=== PATIENT | male | born 1945 | race Caucasian/White ===

== ENCOUNTER 2018-05-24 11:05 | Inpatient (IN) | payer MEDICARE ==
[2018-05-24] MEDS ORDERED: IPRATROPIUM-ALBUTEROL 3 ML NEB INHALATION STA (11:29)
--- NOTE | 2018-05-24 11:41 | ED ---
SOB HPI - General Chief Complaint: Shortness of Breath Stated Complaint: SOB Time Seen by Provider: 05/24/18 11:15 Source: patient, family, RN notes reviewed Mode of arrival: wheelchair Limitations: physical limitation - History of Present Illness Initial Comments: Is a 73-year-old male who presents with complaints of shortness of breath exertional dyspnea been going on for about 2 weeks he worse she also had right- sided chest pain is been going for a couple weeks he does have a cough of clear phlegm he denies any fevers chills or sweats he does have the exertional dyspnea and very apparently is similar to when he had CHF in the past he's had bypass surgery in 2059. No other modifying factors at this time MD Complaint: shortness of breath, cough, chest pain - Related Data Home Medications Medication Instructions Recorded Confirmed Allopurinol [Zyloprim] 300 mg PO DAILY 11/16/15 05/24/18 Furosemide [Lasix] 40 mg PO TID 11/16/15 05/24/18 Omeprazole 20 mg PO DAILY 11/16/15 05/24/18 Potassium Chloride [Klor-Con 10] 20 meq PO DAILY 12/06/15 05/24/18 Spironolactone [Aldactone] 25 mg PO DAILY 12/06/15 05/24/18 Vitamin B Complex 1 cap PO DAILY 12/06/15 05/24/18 Doxazosin Mesylate [Cardura Xl] 4 mg PO DAILY 01/15/16 05/24/18 Hydrocodone/Acetaminophen 1 tab PO Q6H PRN 01/15/16 05/24/18 [Hydrocodone-Acetamin 10-325 mg] Rivaroxaban [Xarelto] 20 mg PO W/SUPPER 01/15/16 05/24/18 ALPRAZolam [Xanax] 0.25 mg PO TID PRN 02/14/16 05/24/18 Amiodarone [Cordarone] 100 mg PO DAILY 05/24/18 05/24/18 Cholecalciferol (Vitamin D3) 4,000 unit PO DAILY 05/24/18 05/24/18 [Vitamin D3] Metolazone [Zaroxolyn] 2.5 mg PO Q7DAYS 05/24/18 05/24/18 Previous Rx's Medication Instructions Recorded Atorvastatin [Lipitor] 40 mg PO HS #30 tab 12/14/15 hydrALAZINE HCL [Apresoline] 25 mg PO TID #90 tab 12/14/15 Allergies Allergy/AdvReac Type Severity Reaction Status Date / Time No Known Allergies Allergy Verified 05/24/18 12:52 Review of Systems ROS Statement: Those systems with pertinent positive or pertinent negative responses have been documented in the HPI. ROS Other: All systems not noted in ROS Statement are negative. Past Medical History Past Medical History: Atrial Fibrillation, Coronary Artery Disease (CAD), Cancer , Heart Failure, GERD/Reflux, Hyperlipidemia, Hypertension, Osteoarthritis (OA) , Pneumonia, Sleep Apnea/CPAP/BIPAP Additional Past Medical History / Comment(s): uses CPAP, hx. gout, hx. skin cancer, left sided thoracentesis 1.5 L off in December 2015, right carotid stenosis of 100%, left carotid stenosis of 60-70%,C-DIFF NOVEMBER 2015, LT ETE DETATCHED RETINA(HAD SX 02/07/16), DECREASED APPETITE-LOST 57# SINCE OCTOBER 2014. History of Any Multi-Drug Resistant Organisms: None Reported Past Surgical History: Coronary Bypass/CABG, Joint Replacement Additional Past Surgical History / Comment(s): both knees replaced, retinal repair left eye Past Anesthesia/Blood Transfusion Reactions: No Reported Reaction Past Psychological History: No Psychological Hx Reported Smoking Status: Former smoker Past Alcohol Use History: None Reported Past Drug Use History: None Reported - Past Family History Mother History Unknown: Yes Family Medical History: No Reported History Father History Unknown: Yes General Exam - General Exam Comments Initial Comments: This is a well-developed well-nourished awake alert oriented 3 male Limitations: physical limitation General appearance: alert, in no apparent distress Head exam: Present: atraumatic, normocephalic, normal inspection Eye exam: Present: normal appearance, PERRL, EOMI. Absent: scleral icterus, conjunctival injection, periorbital swelling ENT exam: Present: normal exam, mucous membranes moist Neck exam: Present: normal inspection. Absent: tenderness, meningismus, lymphadenopathy Respiratory exam: Present: decreased breath sounds. Absent: respiratory distress, wheezes, rales, rhonchi, stridor Cardiovascular Exam: Present: regular rate, normal rhythm, normal heart sounds. Absent: systolic murmur, diastolic murmur, rubs, gallop, clicks GI/Abdominal exam: Present: soft, normal bowel sounds. Absent: distended, tenderness, guarding, rebound, rigid Extremities exam: Present: normal inspection, full ROM, normal capillary refill , pedal edema. Absent: tenderness, joint swelling, calf tenderness Back exam: Present: normal inspection Neurological exam: Present: alert, oriented X3, CN II-XII intact Psychiatric exam: Present: normal affect, normal mood Skin exam: Present: warm, dry, intact, normal color. Absent: rash Course Vital Signs 05/24/18 05/24/18 05/24/18 11:08 11:36 11:45 Temperature 98.1 F Pulse Rate 68 62 69 Respiratory 20 Rate Blood Pressure 134/60 O2 Sat by Pulse 97 Oximetry 05/24/18 05/24/18 05/24/18 12:49 13:11 13:41 Temperature 97.5 F L Pulse Rate 58 L 66 60 Respiratory 22 Rate Blood Pressure 108/57 108/61 125/61 O2 Sat by Pulse 98 98 98 Oximetry 05/24/18 05/24/18 05/24/18 14:11 14:41 15:57 Temperature Pulse Rate 64 66 70 Respiratory 18 18 Rate Blood Pressure 120/67 106/58 105/59 O2 Sat by Pulse 99 98 98 Oximetry Medical Decision Making - Medical Decision Making I did discuss findings with patient and family members. Also Dr. Olivera the patient be admitted he does have evidence of renal insufficiency. - Lab Data Result diagrams: 05/24/18 11:35 05/24/18 11:35 Lab Results 05/24/18 05/24/18 05/24/18 Range/Units 11:35 11:35 11:35 WBC 8.1 (3.8-10.6) k/uL RBC 3.78 L (4.30-5.90) m/uL Hgb 13.0 (13.0-17.5) gm/dL Hct 38.1 L (39.0-53.0) % MCV 101.0 H (80.0-100.0) fL MCH 34.5 (25.0-35.0) pg MCHC 34.1 (31.0-37.0) g/dL RDW 15.8 H (11.5-15.5) % Plt Count 178 (150-450) k/uL Neutrophils % 75 % Lymphocytes % 15 % Monocytes % 6 % Eosinophils % 3 % Basophils % 0 % Neutrophils # 6.0 (1.3-7.7) k/uL Lymphocytes # 1.2 (1.0-4.8) k/uL Monocytes # 0.5 (0-1.0) k/uL Eosinophils # 0.2 (0-0.7) k/uL Basophils # 0.0 (0-0.2) k/uL Macrocytosis Slight PT (9.0-12.0) sec INR (<1.2) APTT (22.0-30.0) sec Sodium 140 (137-145) mmol/L Potassium 4.2 (3.5-5.1) mmol/L Chloride 108 H (98-107) mmol/L Carbon Dioxide 24 (22-30) mmol/L Anion Gap 8 mmol/L BUN 39 H (9-20) mg/dL Creatinine 2.60 H (0.66-1.25) mg/dL Est GFR (CKD-EPI)AfAm 27 (>60 ml/min/1.73 sqM) Est GFR (CKD-EPI)NonAf 23 (>60 ml/min/1.73 sqM) Glucose 111 H (74-99) mg/dL Calcium 9.0 (8.4-10.2) mg/dL Magnesium 1.7 (1.6-2.3) mg/dL Total Bilirubin 0.4 (0.2-1.3) mg/dL AST 27 (17-59) U/L ALT 28 (21-72) U/L Alkaline Phosphatase 69 (38-126) U/L Total Creatine Kinase 47 L (55-170) U/L CK-MB (CK-2) 0.5 (0.0-2.4) ng/mL CK-MB (CK-2) Rel Index 1.1 Troponin I <0.012 (0.000-0.034) ng/mL NT-Pro-B Natriuret Pep pg/mL Total Protein 5.8 L (6.3-8.2) g/dL Albumin 3.1 L (3.5-5.0) g/dL 05/24/18 05/24/18 Range/Units 11:35 11:35 WBC (3.8-10.6) k/uL RBC (4.30-5.90) m/uL Hgb (13.0-17.5) gm/dL Hct (39.0-53.0) % MCV (80.0-100.0) fL MCH (25.0-35.0) pg MCHC (31.0-37.0) g/dL RDW (11.5-15.5) % Plt Count (150-450) k/uL Neutrophils % % Lymphocytes % % Monocytes % % Eosinophils % % Basophils % % Neutrophils # (1.3-7.7) k/uL Lymphocytes # (1.0-4.8) k/uL Monocytes # (0-1.0) k/uL Eosinophils # (0-0.7) k/uL Basophils # (0-0.2) k/uL Macrocytosis PT 11.8 (9.0-12.0) sec INR 1.2 H (<1.2) APTT 29.9 (22.0-30.0) sec Sodium (137-145) mmol/L Potassium (3.5-5.1) mmol/L Chloride (98-107) mmol/L Carbon Dioxide (22-30) mmol/L Anion Gap mmol/L BUN (9-20) mg/dL Creatinine (0.66-1.25) mg/dL Est GFR (CKD-EPI)AfAm (>60 ml/min/1.73 sqM) Est GFR (CKD-EPI)NonAf (>60 ml/min/1.73 sqM) Glucose (74-99) mg/dL Calcium (8.4-10.2) mg/dL Magnesium (1.6-2.3) mg/dL Total Bilirubin (0.2-1.3) mg/dL AST (17-59) U/L ALT (21-72) U/L Alkaline Phosphatase (38-126) U/L Total Creatine Kinase (55-170) U/L CK-MB (CK-2) (0.0-2.4) ng/mL CK-MB (CK-2) Rel Index Troponin I (0.000-0.034) ng/mL NT-Pro-B Natriuret Pep 393 pg/mL Total Protein (6.3-8.2) g/dL Albumin (3.5-5.0) g/dL - Radiology Data Radiology results: report reviewed (The patient x-ray was reviewed and no definite acute findings are seen.), image reviewed Disposition Clinical Impression: Renal insufficiency, COPD (chronic obstructive pulmonary disease) Disposition: ADMITTED IP TO THIS HOSP Condition: Stable Referrals: Chris Olivera MD [Primary Care Provider] - 1-2 days
[2018-05-24 11:55] LABS: Basophils % (A) 0 %; Eosinophils # (A) 0.2 k/uL (0-0.7); Eosinophils % (A) 3 %; HCT 38.1 % (39.0-53.0); Lymphocytes # (A) 1.2 k/uL (1.0-4.8); Lymphocytes % (A) 15 %; MCH 34.5 pg (25.0-35.0); MCHC 34.1 g/dL (31.0-37.0); Macrocytosis Slight; Mean Platelet Volume 7.5; Monocytes # (A) 0.5 k/uL (0-1.0); Monocytes % (A) 6 %; Neutrophils % (A) 75 %; Platelet Count 178 k/uL (150-450); RBC 3.78 m/uL (4.30-5.90); RDW 15.8 % (11.5-15.5); WBC 8.1 k/uL (3.8-10.6)
[2018-05-24 12:17] LABS: Albumin 3.1 g/dL (3.5-5.0); Magnesium 1.7 mg/dL (1.6-2.3); Potassium 4.2 mmol/L (3.5-5.1); Total Bilirubin 0.4 mg/dL (0.2-1.3); Total Protein 5.8 g/dL (6.3-8.2)
--- NOTE | 2018-05-24 12:19 | XR ---
EXAMINATION TYPE: XR chest 2V DATE OF EXAM: 05/24/2018 COMPARISON: Prior chest x-ray 02/16/[address] 02/17/2016 HISTORY: Difficulty breathing and shortness of breath, cough TECHNIQUE: Frontal and lateral views of the chest are obtained. FINDINGS: Patient is post median sternotomy and atrial appendage clipping placement. No evident airs pace disease, pneumothorax, or pleural effusion. There are overlying cardiac leads. Heart remains enl arged. Pulmonary vascularity and elver not significantly changed. Prominent lung volume may be indicat drake of underlying COPD. There is increased AP diameter chest. The aorta is dense and aneurysmal. IMPRESSION: No acute cardiopulmonary process. Cardiomegaly, aortic aneurysm.
[2018-05-24 12:22] LABS: Creatine Kinase 47 U/L (55-170)
[2018-05-24 12:29] LABS: INR 1.2 (<1.2); Partial Thromboplastin Time 29.9 sec (22.0-30.0); Prothrombin Time 11.8 sec (9.0-12.0)
[2018-05-24 12:35] LABS: Creatine Kinase MB 0.5 ng/mL (0.0-2.4); Troponin I <0.012 ng/mL (0.000-0.034)
[2018-05-24] MEDS ORDERED: HYDROcodone/APAP 10-325MG 1 EACH TAB PO PRN (16:44)
[2018-05-24] MEDS ORDERED: ALPRAZolam 0.25 MG TAB PO PRN (16:44)
[2018-05-24] MEDS ORDERED: SODIUM CHLORIDE 0.9% 1,000 ML IV STA (17:02)
[2018-05-24] MEDS: IPRATROPIUM-ALBUTEROL 3 ML NEB INHALATION SCH (19:33)
[2018-05-24] MEDS: ATORVASTATIN 40 MG TAB PO SCH (20:45)
[2018-05-24] MEDS: FUROSEMIDE 40 MG TAB PO SCH (20:45)
[2018-05-24] MEDS: hydrALAZINE HCL 25 MG TAB PO SCH (20:45)
[2018-05-24] MEDS: RIVAROXABAN 20 MG TAB PO SCH (20:45)
--- NOTE | 2018-05-24 20:53 | P.HPIM ---
History of Present Illness H&P Date: 05/24/18 Chief Complaint: Dyspnea on exertion. This is a history of physical and a 73-year-old white male essentially admitted for worsening shortness of breath and acute renal failure on laboratory findings. He states for the last several days she's been having dyspnea on exertion. He states is very similar to his 2016 procedure for coronary bypass graft. He has an underlying history of atrial fibrillation. No overt chest pressure stated. No syncopal episodes. Some weakness as stated. However, that the dyspnea is nowhere near the strength of his postoperative shortness of breath from CABG. The patient is now seen shortly after transfer to the fifth floor. The patient has underlying history of atrial fibrillation with gout. Review of Systems Constitutional: Reports fatigue, Reports weakness, Denies weight gain Ears, nose, mouth and throat: Denies headache, Denies sore throat Cardiovascular: Reports as per HPI, Reports decreased exercise tolerance, Reports dyspnea on exertion, Reports shortness of breath Respiratory: Denies cough Gastrointestinal: Denies abdominal pain, Denies diarrhea, Denies nausea, Denies vomiting Musculoskeletal: Denies myalgias Integumentary: Denies pruritus, Denies rash Neurological: Denies numbness, Denies weakness Psychiatric: Denies anxiety, Denies depression Endocrine: Reports as per HPI Past Medical History Past Medical History: Atrial Fibrillation, Coronary Artery Disease (CAD), Cancer , Heart Failure, GERD/Reflux, Hyperlipidemia, Hypertension, Osteoarthritis (OA) , Pneumonia, Sleep Apnea/CPAP/BIPAP Additional Past Medical History / Comment(s): uses CPAP, hx. gout, hx. skin cancer, left sided thoracentesis 1.5 L off in December 2015, right carotid stenosis of 100%, left carotid stenosis of 60-70%,C-DIFF NOVEMBER 2015, LT ETE DETATCHED RETINA(HAD SX 02/07/16), DECREASED APPETITE-LOST 57# SINCE OCTOBER 2014. History of Any Multi-Drug Resistant Organisms: None Reported Past Surgical History: Coronary Bypass/CABG, Joint Replacement Additional Past Surgical History / Comment(s): both knees replaced, retinal repair left eye Past Anesthesia/Blood Transfusion Reactions: No Reported Reaction Past Psychological History: No Psychological Hx Reported Smoking Status: Former smoker Past Alcohol Use History: None Reported Past Drug Use History: None Reported - Past Family History Mother History Unknown: Yes Family Medical History: No Reported History Father History Unknown: Yes Medications and Allergies Home Medications Medication Instructions Recorded Confirmed Type Allopurinol [Zyloprim] 300 mg PO DAILY 11/16/15 05/24/18 History Furosemide [Lasix] 40 mg PO TID 11/16/15 05/24/18 History Omeprazole 20 mg PO DAILY 11/16/15 05/24/18 History Potassium Chloride [Klor-Con 10] 20 meq PO DAILY 12/06/15 05/24/18 History Spironolactone [Aldactone] 25 mg PO DAILY 12/06/15 05/24/18 History Vitamin B Complex 1 cap PO DAILY 12/06/15 05/24/18 History Atorvastatin [Lipitor] 40 mg PO HS #30 tab 12/14/15 05/24/18 Rx hydrALAZINE HCL [Apresoline] 25 mg PO TID #90 tab 12/14/15 05/24/18 Rx Doxazosin Mesylate [Cardura Xl] 4 mg PO DAILY 01/15/16 05/24/18 History Hydrocodone/Acetaminophen 1 tab PO Q6H PRN 01/15/16 05/24/18 History [Hydrocodone-Acetamin 10-325 mg] Rivaroxaban [Xarelto] 20 mg PO W/SUPPER 01/15/16 05/24/18 History ALPRAZolam [Xanax] 0.25 mg PO TID PRN 02/14/16 05/24/18 History Amiodarone [Cordarone] 100 mg PO DAILY 05/24/18 05/24/18 History Cholecalciferol (Vitamin D3) 4,000 unit PO DAILY 05/24/18 05/24/18 History [Vitamin D3] Metolazone [Zaroxolyn] 2.5 mg PO Q7DAYS 05/24/18 05/24/18 History Allergies Allergy/AdvReac Type Severity Reaction Status Date / Time No Known Allergies Allergy Verified 05/24/18 12:52 Physical Exam Vitals: Vital Signs Temp Pulse Resp BP Pulse Ox 05/24/18 19:42 76 05/24/18 19:33 75 05/24/18 15:57 70 105/59 98 05/24/18 14:41 66 18 106/58 98 05/24/18 14:11 64 18 120/67 99 05/24/18 13:41 60 125/61 98 05/24/18 13:11 66 108/61 98 05/24/18 12:49 97.5 F L 58 L 22 108/57 98 05/24/18 11:45 69 05/24/18 11:36 62 05/24/18 11:08 98.1 F 68 20 134/60 97 Intake and Output 05/24/18 05/24/18 05/24/18 06:59 14:59 22:59 Other: Weight 147.871 kg - Constitutional General appearance: no acute distress - EENT Eyes: EOMI - Neck Neck: no lymphadenopathy - Respiratory Respiratory: bilateral: diminished - Cardiovascular Rhythm: irregularly irregular Abnormal Heart Sounds: no S3 Gallop - Gastrointestinal General gastrointestinal: soft, no tenderness - Musculoskeletal Musculoskeletal: generalized weakness - Psychiatric Psychiatric: A&O x's 3, appropriate affect, intact judgment & insight Results CBC & Chem 7: 05/24/18 11:35 05/24/18 11:35 Labs: Abnormal Lab Results - Last 24 Hours (Table) 05/24/18 05/24/18 05/24/18 Range/Units 11:35 11:35 11:35 RBC 3.78 L (4.30-5.90) m/uL Hct 38.1 L (39.0-53.0) % MCV 101.0 H (80.0-100.0) fL RDW 15.8 H (11.5-15.5) % INR (<1.2) Chloride 108 H (98-107) mmol/L BUN 39 H (9-20) mg/dL Creatinine 2.60 H (0.66-1.25) mg/dL Glucose 111 H (74-99) mg/dL Total Creatine Kinase 47 L (55-170) U/L Total Protein 5.8 L (6.3-8.2) g/dL Albumin 3.1 L (3.5-5.0) g/dL 05/24/18 Range/Units 11:35 RBC (4.30-5.90) m/uL Hct (39.0-53.0) % MCV (80.0-100.0) fL RDW (11.5-15.5) % INR 1.2 H (<1.2) Chloride (98-107) mmol/L BUN (9-20) mg/dL Creatinine (0.66-1.25) mg/dL Glucose (74-99) mg/dL Total Creatine Kinase (55-170) U/L Total Protein (6.3-8.2) g/dL Albumin (3.5-5.0) g/dL Assessment and Plan (1) COPD (chronic obstructive pulmonary disease) Current Visit: Yes Status: Acute Code(s): J44.9 - CHRONIC OBSTRUCTIVE PULMONARY DISEASE, UNSPECIFIED SNOMED Code(s): 18133055 (2) Renal insufficiency Current Visit: Yes Status: Acute Code(s): N28.9 - DISORDER OF KIDNEY AND URETER, UNSPECIFIED SNOMED Code(s): 480625798 (3) Dyspnea Current Visit: No Status: Acute Code(s): R06.00 - DYSPNEA, UNSPECIFIED SNOMED Code(s): 681506303 (4) HTN (hypertension) Current Visit: No Status: Acute Code(s): I10 - ESSENTIAL (PRIMARY) HYPERTENSION SNOMED Code(s): 30241273 (5) Hyperlipemia Current Visit: No Status: Acute Code(s): E78.5 - HYPERLIPIDEMIA, UNSPECIFIED SNOMED Code(s): 30516358 (6) Atrial fibrillation Current Visit: No Status: Chronic Code(s): I48.91 - UNSPECIFIED ATRIAL FIBRILLATION SNOMED Code(s): 19789705 (7) Coronary artery disease Current Visit: No Status: Chronic Code(s): I25.10 - ATHSCL HEART DISEASE OF [place] CORONARY ARTERY W/O ANG PCTRS SNOMED Code(s): 51198943 (8) S/P CABG (coronary artery bypass graft) Current Visit: No Status: Chronic Code(s): Z95.1 - PRESENCE OF AORTOCORONARY BYPASS GRAFT SNOMED Code(s): 648376806 Plan: Chest x-ray does not show significant issue from an infiltrated perspective. We'll going consult nephrology given the acuteness of his renal insufficiency. Check CBC and CMP in a.m. Question need for pulmonology if no better as far as respiration. Continue nebulizer treatments. Clinically the patient is not overtly wheezing seems comfortable. Increase ambulation as tolerated. See orders otherwise. At this time, the patient is a full code. Time with Patient: Greater than 30
[2018-05-25] MEDS: IPRATROPIUM-ALBUTEROL 3 ML NEB INHALATION SCH ×4 (07:35→19:05)
[2018-05-25 08:34] LABS: HCT 38.3 % (39.0-53.0); HGB 12.7 gm/dL (13.0-17.5); MCHC 33.2 g/dL (31.0-37.0); MCV 102.2 fL (80.0-100.0); Macrocytosis Slight; Mean Platelet Volume 7.7; Platelet Count 175 k/uL (150-450); RBC 3.74 m/uL (4.30-5.90); RDW 15.3 % (11.5-15.5)
[2018-05-25 08:52] LABS: Albumin 3.1 g/dL (3.5-5.0); Calcium 8.9 mg/dL (8.4-10.2); Total Bilirubin 0.5 mg/dL (0.2-1.3); Total Protein 5.8 g/dL (6.3-8.2)
[2018-05-25] MEDS ORDERED: NON-FORMULARY DRUG (Vitamin B Complex [Vitamin B Complex] 1 CAP) PO SCH (09:00)
[2018-05-25] MEDS: SPIRONOLACTONE 25 MG TAB PO SCH (09:40)
[2018-05-25] MEDS: POTASSIUM CHLORIDE ER 20 MEQ TAB.ER PO SCH (09:40)
[2018-05-25] MEDS: hydrALAZINE HCL 25 MG TAB PO SCH ×3 (09:40→21:33)
[2018-05-25] MEDS: ALLOPURINOL 300 MG TAB PO SCH (09:40)
[2018-05-25] MEDS: DOXAZOSIN 2 MG TAB PO SCH ×2 (09:40→21:33)
[2018-05-25] MEDS: FUROSEMIDE 40 MG TAB PO SCH (09:40)
[2018-05-25] MEDS: CHOLECALCIFEROL 1,000 UNIT TAB PO SCH (09:41)
[2018-05-25] MEDS: AMIODARONE 100 MG TAB PO SCH (09:41)
[2018-05-25] MEDS: PANTOPRAZOLE 40 MG TABLET PO SCH (09:41)
--- NOTE | 2018-05-25 10:04 | US ---
EXAMINATION TYPE: US kidneys/renal and bladder DATE OF EXAM: 05/25/2018 COMPARISON: Previous study dated 01/16/2016. CLINICAL HISTORY: rf. Renal Failure; HT 6'1", WT 147.9K per patient; ROSENDO; CABG x 3 2016 EXAM MEASUREMENTS: US exam is technically limited due to large body habitus Right Kidney: 11.9 x 4.9 x 6.7 cm Left Kidney: 11.5 x 6.1 x 4.6 cm Right Kidney: multiple renal cysts with largest simple cyst noted inferior pole = 7.6 x 9.2 x 6.9cm; crescent shaped hypoechoic to anechoic area is noted extracapsular to renal periphery known as sonogr aphic "sweat sign" may suggest renal failure and is noted bilateral renals. Left Kidney: No hydronephrosis or masses seen Bladder: not well distended Bilateral Jets seen: not seen after 3 minute observation Normal Post Void Residual: not assessed as patient voided prior to coming for US. There is no evidence for hydronephrosis at this point in time. No nephrolithiasis is seen. The urin mj bladder is anechoic. . IMPRESSION: MULTIPLE, SIMPLE APPEARING RIGHT RENAL CYSTS.
[2018-05-25 13:05] VITALS: RESP 20
--- NOTE | 2018-05-25 15:15 | CONS ---
CONSULTATION REASON FOR CONSULT: Renal failure. HISTORY OF PRESENT ILLNESS: Patient is a 73-year-old male who was admitted to the hospital with complaints of shortness of breath. He denied any chest pains, nausea, or vomiting. The patient denied any urinary symptoms. He does have underlying coronary artery disease and history of atrial fibrillation. The patient denied use of any nonsteroidal anti- inflammatory agents prior to admission. His serum creatinine was 2.6 on admission. Previous creatinine in 2016 was 1.0. The patient is currently maintained on oral Lasix. He did receive IV fluids initially on admission. It looks like he has a history of CHF and is maintained on diuretics at home prior to admission. The DIPIKA done in February of 2016 shows moderately impaired left ventricular ejection fraction at about 45%. The patient's blood pressure was low at 98 mmHg systolic on initial admission. Chest x-ray this admission shows no major abnormalities except for cardiomegaly and aortic aneurysm. PAST MEDICAL HISTORY: CHF, coronary artery disease, hypertension, osteoarthritis, obstructive sleep apnea, history of atrial fibrillation, gastroesophageal reflux disease, peripheral vascular disease. Carotid stenosis, bilateral, with 100% on the right and 60-70 percent on the left. History of detached retina, skin cancer. PAST SURGICAL HISTORY: Coronary artery bypass surgery, bilateral knee arthroplasty, retinal repair. SOCIAL HISTORY: Patient is a former smoker. No history of drug abuse or alcohol abuse. MEDICATIONS: Medications at home prior to admission included Zyloprim, Lasix, omeprazole, potassium Aldactone, Lipitor, hydralazine, Cardura, Xarelto, Xanax, Cordarone, Zaroxolyn, vitamin D3. ALLERGIES: None. REVIEW OF SYSTEMS: As per HPI. Other systems negative. EXAMINATION: Patient is comfortable, awake, alert, oriented x3, not in any acute distress. Blood pressure is 130/78, heart rate 78 per minute. He is afebrile. Examination of the heart S1, S2. Examination of the lungs bilateral breath sounds are heard. Abdomen is soft, nontender, obese. Examination lower extremity shows no significant edema. DATASTAGE DEVELOPER exam is grossly intact. LAB: Show sodium 142, potassium 4.0, chloride 108, BUN 33, serum creatinine 1.85, hemoglobin 12.7 g/dL. Chest x-ray shows no acute abnormalities. ASSESSMENT: 1. Acute kidney injury, possibly prerenal and associated with low blood pressure. The systolic blood pressure was 98 at the time of admission. Chest x-ray is currently clear. I will hold off on the diuretics. Renal function has improved. We will repeat labs in a.m. Patient is not on any nephrotoxic agents. Hold off on IV fluids for now. 2. Gastroesophageal reflux disease. 3. Cardiomyopathy, ejection fraction 45% in 2016 on a transesophageal echocardiogram. 4. Obesity. PLAN: Check UA. Check ultrasound of the kidneys. Hold Lasix for now. Repeat labs in a.m. Avoid nephrotoxic agents. Avoid hypotension. Thank you for this consultation. We will continue to follow the patient with you during his hospitalization. MMODL / IJN: [id number] /
[2018-05-25 15:54] LABS: Appearance,Urine Clear (Clear); Bilirubin,Urine Negative (Negative); Blood,Urine Negative (Negative); Color,Urine Light Yellow; Glucose,Urine (UA) Negative (Negative); Ketones,Urine Negative (Negative); Leukocyte Esterase,Urine Negative (Negative); Nitrite,Urine Negative (Negative); Protein,Urine Negative (Negative); Specific Gravity,Urine 1.009 (1.001-1.035); Urobilinogen,Urine <2.0 mg/dL (<2.0)
[2018-05-25] MEDS: RIVAROXABAN 20 MG TAB PO SCH (16:56)
[2018-05-25] MEDS: ATORVASTATIN 40 MG TAB PO SCH (21:33)
--- NOTE | 2018-05-25 23:11 | PN ---
PROGRESS NOTE DATE OF SERVICE: 05/25/2018 I am covering for Dr. Olivera. This 73-year-old gentleman admitted with COPD exacerbation is closely monitored. No chest pain. No palpitations. No fever. The patient also had elevated creatinine at this time 2.6, improved to 1.85 today. PHYSICAL EXAM: Alert and oriented x3. Pulse is 78, blood pressure 130/70, respiration 20, temperature 98 degrees, pulse ox 94% on room air. HEENT: Conjunctivae normal. Oral mucosa moist. Neck is no jugular venous distention. No carotid bruit. No lymph node enlargement. CARDIOVASCULAR: S1, S2 muffled. RESPIRATORY: Breath sounds diminished in the bases. A few scattered rhonchi and crackles. ABDOMEN: Soft, nontender. LEGS: No edema. NERVOUS SYSTEM: No focal deficit. LABS: WBC 9, hemoglobin 12.7, creatinine 1.85, albumin is 3.1. ASSESSMENT: 1. Chronic obstructive pulmonary disease acute exacerbation with acute tracheobronchitis. 2. Acute on chronic renal failure. 3. Chronic kidney disease stage III. 4. Shortness of breath. 5. Hypertension. 6. Hyperlipidemia. 7. Atrial fibrillation. 8. History of coronary artery disease. 9. History of CABG. RECOMMENDATIONS AND DISCUSSION: I recommend to continue current management, continuing monitoring and symptomatic treatment. Creatinine is improving at this time. I recommend continue with current medications and repeat labs. Closely follow. Further recommendations to follow. Closely follow with Dr. White. Further recommendations to follow. MMODL / IJN: [id number] /
[2018-05-26] MEDS: DOXAZOSIN 2 MG TAB PO SCH (08:42)
[2018-05-26] MEDS: hydrALAZINE HCL 25 MG TAB PO SCH (08:42)
[2018-05-26] MEDS: POTASSIUM CHLORIDE ER 20 MEQ TAB.ER PO SCH (08:42)
[2018-05-26] MEDS: CHOLECALCIFEROL 1,000 UNIT TAB PO SCH (08:42)
[2018-05-26] MEDS: AMIODARONE 100 MG TAB PO SCH (08:42)
[2018-05-26] MEDS: SPIRONOLACTONE 25 MG TAB PO SCH (08:43)
[2018-05-26] MEDS: ALLOPURINOL 300 MG TAB PO SCH (08:43)
[2018-05-26] MEDS: PANTOPRAZOLE 40 MG TABLET PO SCH (08:43)
[2018-05-26] MEDS: IPRATROPIUM-ALBUTEROL 3 ML NEB INHALATION SCH ×2 (09:04→12:48)
[2018-05-26 11:45] LABS: Calcium 8.8 mg/dL (8.4-10.2); Potassium 4.3 mmol/L (3.5-5.1)
[2018-05-26 13:37] VITALS: BP 138/83; PULSE 54; TEMP 98.2
--- NOTE | 2018-05-26 17:43 | PN ---
PROGRESS NOTE The patient is seen for followup for acute kidney injury. Renal function has improved significantly. Patient will be going home today. PHYSICAL EXAMINATION: Blood pressure was 138/83, heart rate 54 per minute. Patient is afebrile. Examination of the heart: S1, S2. Examination of the lungs: Bilateral breath sounds are heard. Abdomen is soft, obese, nontender. Examination lower extremity shows no evidence of edema. LOOM STOP CHECKER exam is grossly intact. LABS: Show sodium 140, potassium 4.3, serum creatinine down to 1.6 mg/dL. ASSESSMENT: 1. Acute kidney injury, prerenal, currently significantly improved. UA is completely benign. The patient has been voiding well. He can be discharged from nephrology standpoint. Diuretics have been on hold. 2. Cardiomyopathy, ejection fraction 45% in 2016. 3. Obesity. 4. Gastroesophageal reflux disease. PLAN: Okay for discharge. Follow up as outpatient. Monitor renal function as outpatient. MMODL / IJN: [id number] /
--- NOTE | 2018-05-27 05:52 | DS ---
DISCHARGE SUMMARY FINAL DIAGNOSES: 1. Chronic obstructive pulmonary disease exacerbation. 2. Acute on chronic renal failure. 3. Chronic kidney stage 3. 4. Shortness of breath. 5. Hypertension. 6. Hyperlipidemia. 7. Atrial fibrillation. 8. History of coronary artery disease. 9. History of coronary artery bypass grafting. DISCHARGE DISPOSITION: The patient is being discharged in stable condition with guarded prognosis. HISTORY OF PRESENT ILLNESS: This 73-year-old gentleman with a past medical history of multiple medical problems was admitted with COPD exacerbation and renal failure, treated symptomatically. Patient improved significantly and Dr. White's saw the patient. Recommend outpatient follow up. On exam, vital signs are stable. Cardiovascular: S1, S2. Abdomen soft. Nervous system: No focal deficits. Abdominal ultrasound also was done which showed multiple simple appearing right renal cyst only. Lasix is on hold. Creatinine improved up to 1.62 and the patient being discharged in stable condition with guarded prognosis. DISCHARGE ADVICE AND MEDICATIONS: 1. Diet is cardiac diet. 2. Activity limited until followup. 3. Follow up with Dr. Olivera in 2-3 days. 4. Follow up with Dr. White in 1 week. 5. CBC and BMP outpatient. 6. Hold Lasix for now. MEDICATIONS: 1. Zyloprim 300 mg daily. 2. Xanax 0.5 mg t.i.d. 3. Cordarone 100 mg p.o. daily. 4. Vitamin D3 4000 daily. 5. Cardura XL 4 mg p.o. daily. 6. Hydrocodone 1 tablet every 6 hours p.r.n. 7. Zaroxolyn 2.5 mg q.7 days. 8. Omeprazole 20 mg p.o. daily. 9. Klor-Con 20 mEq p.o. daily. 10.Xarelto 20 mg supper. 11.Aldactone 25 mg p.o. daily. 12.Vitamin B complex 1 p.o. daily. 13.Lipitor 40 mg q.h.s. 14.Hydralazine 25 mg p.o. t.i.d. 15.Combivent 1 puff t.i.d. Once again, the patient is being discharged in stable condition with guarded prognosis. MMODL / IJN: [id number] /
[2018-05-29] MEDS ORDERED: METOLAZONE 2.5 MG TAB PO SCH (09:00)
== END 2018-05-26 14:18 | disposition home or self-care (01) | DRG 191 ==
LOC: EC 11:05 → 5MS5E 16:42 → 5ONC 17:40 → 5MS5E 05-25 20:57
PROVIDERS: ADMIT Family Medicine; ATTEND Family Medicine
DX: J44.0 Chronic obstructive pulmonary disease with (acute) lower respiratory infection (principal); I13.0 Hypertensive heart and chronic kidney disease with heart failure and stage 1 through stage 4 chronic kidney disease, or unspecified chronic kidney disease; I42.9 Cardiomyopathy, unspecified; N17.9 Acute kidney failure, unspecified; Z68.41 Body mass index [BMI] 40.0-44.9, adult; J44.1 Chronic obstructive pulmonary disease with (acute) exacerbation; J20.9 Acute bronchitis, unspecified; E66.9 Obesity, unspecified; E78.5 Hyperlipidemia, unspecified; G47.33 Obstructive sleep apnea (adult) (pediatric); I25.10 Atherosclerotic heart disease of native coronary artery without angina pectoris; I48.91 Unspecified atrial fibrillation; I71.9 Aortic aneurysm of unspecified site, without rupture; I73.9 Peripheral vascular disease, unspecified; K21.9 Gastro-esophageal reflux disease without esophagitis; N18.3 Chronic kidney disease, stage 3 (moderate); N28.1 Cyst of kidney, acquired; Z79.01 Long term (current) use of anticoagulants; I50.9 Heart failure, unspecified; Z85.828 Personal history of other malignant neoplasm of skin; Z87.891 Personal history of nicotine dependence; Z95.1 Presence of aortocoronary bypass graft; Z96.653 Presence of artificial knee joint, bilateral; Z79.899 Other long term (current) drug therapy
CPT/HCPCS: 36415; 71046; 76770; 80048; 80053; 81003; 82550; 82553; 83735; 83880; 84484; 85025; 85027; 85610; 85730; 93005; 94640; 99285

== ENCOUNTER → 2018-07-17 | Outpatient (CLI) | payer MEDICARE | LOC: RADMRIMAIN 08:10 | PROVIDERS: ATTEND Physical Medicine & Rehabilitation | DX: Z53.9 Procedure and treatment not carried out, unspecified reason (principal) ==

== ENCOUNTER → 2018-09-16 | Outpatient (CLI) | payer MEDICARE ==
[2018-09-16 10:39] LABS: HCT 44.3 % (39.0-53.0); HGB 13.4 gm/dL (13.0-17.5); Hypochromasia Slight; MCH 30.4 pg (25.0-35.0); MCHC 30.2 g/dL (31.0-37.0); MCV 100.8 fL (80.0-100.0); Macrocytosis Slight; Mean Platelet Volume 7.9; Platelet Count 224 k/uL (150-450); RBC 4.39 m/uL (4.30-5.90); RDW 15.1 % (11.5-15.5); WBC 7.6 k/uL (3.8-10.6)
[2018-09-16 17:34] LABS: Parathyroid Hormone Intact 141.5 pg/mL (14.0-72.0)
[2018-09-16 17:45] LABS: Iron Saturation 14.85 (15.00-50.00)
[2018-09-16 17:54] LABS: Albumin 3.9 g/dL (3.80-4.90); Albumin/Globulin Ratio 1.77 (1.20-2.10); Anion Gap 11.2 mmol/L (4.00-12.00); Carbon Dioxide 23.8 mmol/L (21.6-31.8); Globulin 2.2 g/dL (1.6-3.3); Magnesium 1.8 mg/dL (1.5-2.4); Phosphorus 2.8 mg/dL (2.4-5.1); Potassium 3.7 mmol/L (3.5-5.5); Total Bilirubin 0.6 mg/dL (0.3-1.2); Total Protein 6.1 g/dL (6.2-8.2); Uric Acid 5.4 mg/dL (3.7-8.7); Vitamin D 25 Hydroxy 26.4 ng/mL (30.0-100.0)
[2018-09-16 18:16] LABS: Hemoglobin A1C 6.2 % (4.0-6.0)
[2018-09-16 18:32] LABS: Creatinine,Urine Random 99.1 mg/dL
[2018-09-16 18:34] LABS: Total Protein,Urine Random 9.2 mg/dL (0.0-13.5)
== END | disposition home or self-care (01) ==
LOC: LABWHC1 09:25
PROVIDERS: ATTEND Nurse Practitioner Family
DX: R80.9 Proteinuria, unspecified (principal); D64.9 Anemia, unspecified; E21.3 Hyperparathyroidism, unspecified; E55.9 Vitamin D deficiency, unspecified; M10.9 Gout, unspecified; N17.9 Acute kidney failure, unspecified; R73.9 Hyperglycemia, unspecified; E66.9 Obesity, unspecified
CPT/HCPCS: 36415; 80053; 82306; 82570; 82728; 83036; 83540; 83550; 83735; 83970; 84100; 84156; 84550; 85027

== ENCOUNTER → 2019-03-21 | Outpatient (CLI) | payer MEDICARE ==
--- NOTE | 2019-03-22 11:42 | US ---
EXAMINATION TYPE: US thyroid st tissue head/neck DATE OF EXAM: 03/21/2019 COMPARISON: Chest CT February 17, 2016 CLINICAL HISTORY: E03.9 Hyperthyroidism. Hyperthyroidism GLAND SIZE: Right Lobe: 7.3 x 3.4 x 4.9 cm Overall Parenchyma: homogenous Left Lobe: 5.3 x 2.0 x 2.2 cm Overall Parenchyma: homogeneous Isthmus Thickness: 0.8 cm NODULES RIGHT: # of nodules measured on right: 1 1. 4.5 X 3.4 x 4.2 cm hypoechoic solid nodule at the mid/lower pole with well-defined margins. Thi s nodule is wider than tall and shows intranodular vascularity. Prior size: no prior LEFT: # of nodules measured on left: 0 ISTHMUS: # of nodules measured in the isthmus: 0 Bilateral neck scanned, no evidence of lymphadenopathy. IMPRESSION: Heterogeneous enlarged right thyroid with dominant solid 4.5 cm mid to lower pole right t hyroid nodule redemonstrated. Likely no significant change from 2016 CT. Consider FNA if has not been performed.
== END | disposition home or self-care (01) ==
LOC: RADUSWWP 16:46
PROVIDERS: ATTEND Family Medicine
DX: E04.1 Nontoxic single thyroid nodule (principal); E05.90 Thyrotoxicosis, unspecified without thyrotoxic crisis or storm
CPT/HCPCS: 76536

== ENCOUNTER → 2019-03-24 | Outpatient (CLI) | payer MEDICARE | END | disposition home or self-care (01) | LOC: LABWHC1 12:15 | PROVIDERS: ATTEND Internal Medicine Endocrinology, Diabetes & Metabolism | DX: E05.00 Thyrotoxicosis with diffuse goiter without thyrotoxic crisis or storm (principal) | CPT/HCPCS: 36415; 84439; 84443; 84445; 84480 ==

== ENCOUNTER → 2019-07-02 | Outpatient (CLI) | payer MEDICARE ==
[2019-07-02 18:38] LABS: T4, Free (Free Thyroxine) 0.9 ng/dL (0.80-1.80)
== END | disposition home or self-care (01) ==
LOC: LABWHC1 12:14
PROVIDERS: ATTEND Internal Medicine Endocrinology, Diabetes & Metabolism
DX: E05.00 Thyrotoxicosis with diffuse goiter without thyrotoxic crisis or storm (principal)
CPT/HCPCS: 36415; 84439; 84443; 84445; 84480

== ENCOUNTER → 2019-08-18 | Outpatient (CLI) | payer MEDICARE ==
[2019-08-18 16:52] LABS: Chol/HDL Ratio 2.8; LDL Cholesterol,Calculated 40.6 mg/dL (0.0-131.0); VLDL Calculation 38.4 mg/dL (5.00-40.00)
== END | disposition home or self-care (01) ==
LOC: LABWHC1 10:41
PROVIDERS: ATTEND Nurse Practitioner Adult Health
DX: E78.2 Mixed hyperlipidemia (principal)
CPT/HCPCS: 36415; 80061; 84450; 84460

== ENCOUNTER → 2019-08-27 | Outpatient (CLI) | payer MEDICARE ==
--- NOTE | 2019-08-27 15:05 | US ---
EXAMINATION TYPE: US thyroid st tissue head/neck DATE OF EXAM: 08/27/2019 COMPARISON: 03/21/2019 CLINICAL HISTORY: E05.00 Thyrotocicosis. Follow up thyroid. On thyroid meds. No hx bx. GLAND SIZE: Right Lobe: 5.9 x 4.8 x 3.4 cm Overall Parenchyma: heterogenous Left Lobe: 2.9 x 1.8 x 1.8 cm Overall Parenchyma: heterogeneous Isthmus Thickness: 0.4 cm NODULES RIGHT: # of nodules measured on right: 1 1. 4.4 X 4.9 x 3.5 cm hypoechoic solid nodule at the mid/lower pole with well-defined margins. Thi s nodule is wider than tall and shows intranodular vascularity. Prior size: 4.5 x 3.4 x 4.2 cm LEFT: # of nodules measured on left: 0 ISTHMUS: # of nodules measured in the isthmus: 0 Bilateral neck scanned, no evidence of lymphadenopathy. IMPRESSION: 1. Markedly prominent right thyroid nodule, stable from comparison 03/21/2019
== END | disposition home or self-care (01) ==
LOC: RADUSWWP 12:57
PROVIDERS: ATTEND Internal Medicine Endocrinology, Diabetes & Metabolism
DX: E04.1 Nontoxic single thyroid nodule (principal); E05.00 Thyrotoxicosis with diffuse goiter without thyrotoxic crisis or storm
CPT/HCPCS: 76536

== ENCOUNTER → 2020-01-26 | Outpatient (CLI) | payer MEDICARE | END | disposition home or self-care (01) | LOC: LABWHC1 08:53 | PROVIDERS: ATTEND Internal Medicine Interventional Cardiology | DX: U07.1 COVID-19 (principal) ==

== ENCOUNTER 2020-01-28 06:28 | Day surgery (SDC) | payer MEDICARE ==
[2020-01-26 14:56] VITALS: BMI 46.1
[~2020-01-28 06:28] MED LIST: LACTATED RINGERS 1,000 ML IV SCH; SODIUM CHLORIDE 0.9% 1,000 ML IV SCH
[2020-01-28 07:09] VITALS: TEMP 98.6
[2020-01-28] MEDS ORDERED: SODIUM CHLORIDE 0.9% 500 ML 500 ML IV ONE (07:11)
[2020-01-28] MEDS ORDERED: BENZOCAINE SPRAY 1 CAN TOPICAL ONE (07:24)
[2020-01-28] MEDS ORDERED: PROPOFOL 10 MG/ML 20 ML VIAL IV ONE (07:30)
[2020-01-28 07:40] LABS: Calcium 8.6 mg/dL (8.4-10.2); Potassium 4.4 mmol/L (3.5-5.1)
[2020-01-28 07:50] LABS: Basophils % (A) 1 %; Eosinophils # (A) 0.2 k/uL (0-0.7); Eosinophils % (A) 4 %; HCT 40.6 % (39.0-53.0); HGB 12.9 gm/dL (13.0-17.5); Hypochromasia Moderate; Lymphocytes # (A) 1.1 k/uL (1.0-4.8); Lymphocytes % (A) 16 %; MCH 31.8 pg (25.0-35.0); MCHC 31.7 g/dL (31.0-37.0); MCV 100.4 fL (80.0-100.0); Macrocytosis Slight; Mean Platelet Volume 8.6; Monocytes # (A) 0.5 k/uL (0-1.0); Monocytes % (A) 7 %; Neutrophils # (A) 4.5 k/uL (1.3-7.7); Neutrophils % (A) 70 %; Platelet Count 209 k/uL (150-450); RBC 4.04 m/uL (4.30-5.90); RDW 15.3 % (11.5-15.5); WBC 6.4 k/uL (3.8-10.6)
[2020-01-28] MEDS ORDERED: SODIUM CHLORIDE 0.9% 1,000 ML IV SCH (08:00)
[2020-01-28] MEDS ORDERED: POTASSIUM CHLORIDE 10 MEQ PO SCH (09:00)
[2020-01-28] MEDS ORDERED: NON FORMULARY DRUG (Omeprazole [Omeprazole] 20 MG) PO SCH (09:00)
[2020-01-28] MEDS ORDERED: LEVOTHYROXINE 125 MCG TAB PO SCH (09:00)
[2020-01-28] MEDS ORDERED: SPIRONOLACTONE 25 MG TAB PO SCH (09:00)
[2020-01-28] MEDS ORDERED: FUROSEMIDE 40 MG TAB PO SCH (09:00)
[2020-01-28] MEDS ORDERED: CHOLECALCIFEROL 5000 UNIT PO SCH (09:00)
[2020-01-28] MEDS ORDERED: METOLAZONE 2.5 MG TAB PO SCH (09:00)
[2020-01-28] MEDS ORDERED: ALLOPURINOL 300 MG TAB PO SCH (09:00)
[2020-01-28] MEDS ORDERED: DOXAZOSIN MESYLATE 4 MG PO SCH (09:00)
[2020-01-28] MEDS ORDERED: METOPROLOL TARTRATE 50 MG TAB PO SCH (09:00)
[2020-01-28] MEDS ORDERED: hydrALAZINE HCL 25 MG TAB PO SCH (09:00)
--- NOTE | 2020-01-28 09:13 | ECHOT ---
TRANSESOPHAGEAL ECHOCARDIOGRAM INDICATION: Evaluation of intracardiac thrombus. PROCEDURE: After explaining the procedure to the patient, its risks and the complications, his blood pressure, heart rate, O2 saturation was monitored. The throat was sprayed with Cetacaine. He received sedation per Anesthesia Department. The probe was introduced into the esophagus without difficulty. Images were obtained. Following that, the probe was removed. There was no immediate complication. FINDINGS: Left atrial size is dilated. The left atrial appendage was closed. The left ventricular size is normal. There is evidence of global hypokinesis, estimated ejection fraction 45%. The aortic valve and mitral valve appears to be normal. Descending thoracic aorta appears to be normal. Spontaneous contrast in the left atrium was noted. No pericardial effusion was noted. Contrast bubble study revealed no evidence of shunting across the interatrial septum. Doppler pulse wave and color Doppler obtained and revealed a moderate mitral with mild tricuspid and aortic regurgitation. There was no shunting by color Doppler study. CONCLUSION: 1. Dilated left atrium with occluded left atrial appendage with spontaneous contrast. 2. Normal left ventricular size with mild global hypokinesis. 3. Moderate mitral with mild aortic and tricuspid regurgitation. 4. No shunting across the interatrial septum. MMODL / IJN: [id number] /
--- NOTE | 2020-01-28 09:29 | CE ---
CARDIAC ELECTROPHYSIOLOGY REPORT INDICATION: Atrial fibrillation. PROCEDURE: After explaining the procedure to the patient, its risks and complication. After obtaining transesophageal echocardiogram and sedated state per Anesthesia Department, a synchronized biphasic cardioversion using 200, 250 and 360 joules were unsuccessful in restoring normal sinus rhythm. There was no immediate complication. BEN / WILLY: [id number] /
[2020-01-28 10:42] VITALS: BP 107/59; PULSE 61; RESP 16
[2020-01-28] MEDS ORDERED: RIVAROXABAN 20 MG TAB PO SCH (17:30)
[2020-01-28] MEDS ORDERED: ATORVASTATIN 40 MG TAB PO SCH (21:00)
== END 2020-01-28 09:35 | disposition home or self-care (01) ==
LOC: CATHCVL 06:28
PROVIDERS: ATTEND Internal Medicine Interventional Cardiology
DX: I08.3 Combined rheumatic disorders of mitral, aortic and tricuspid valves (principal); I48.11 Longstanding persistent atrial fibrillation; I25.5 Ischemic cardiomyopathy; I25.10 Atherosclerotic heart disease of native coronary artery without angina pectoris; E78.2 Mixed hyperlipidemia; I13.0 Hypertensive heart and chronic kidney disease with heart failure and stage 1 through stage 4 chronic kidney disease, or unspecified chronic kidney disease; I50.9 Heart failure, unspecified; N18.9 Chronic kidney disease, unspecified; E89.0 Postprocedural hypothyroidism; E66.9 Obesity, unspecified; K21.9 Gastro-esophageal reflux disease without esophagitis; M19.90 Unspecified osteoarthritis, unspecified site; M10.9 Gout, unspecified; G47.33 Obstructive sleep apnea (adult) (pediatric); Z95.1 Presence of aortocoronary bypass graft; Z87.891 Personal history of nicotine dependence; Z68.42 Body mass index [BMI] 45.0-49.9, adult; Z79.01 Long term (current) use of anticoagulants; Z79.890 Hormone replacement therapy; Z79.899 Other long term (current) drug therapy; Z96.653 Presence of artificial knee joint, bilateral; Z98.890 Other specified postprocedural states; Z99.89 Dependence on other enabling machines and devices
CPT/HCPCS: 93312; 93320; 93325; 92960; 80048; 85025; J2704

== ENCOUNTER → 2020-02-16 | Outpatient (CLI) | payer MEDICARE | END | disposition home or self-care (01) | LOC: LABWHC1 09:14 | PROVIDERS: ATTEND Internal Medicine Endocrinology, Diabetes & Metabolism | DX: E05.00 Thyrotoxicosis with diffuse goiter without thyrotoxic crisis or storm (principal) | CPT/HCPCS: 36415; 84439; 84443; 84480 ==

== ENCOUNTER 2020-03-25 10:01 | Day surgery (SDC) | payer MEDICARE ==
[2020-03-19 09:19] VITALS: BMI 46.1
[2020-03-25] MEDS ORDERED: LIDOCAINE 1% INJ 10MG/ML (20 ML MDV) ONE ×2 (10:18→13:12)
[2020-03-25 10:39] LABS: Basophils # (A) 0.1 k/uL (0-0.2); Basophils % (A) 1 %; Eosinophils # (A) 0.2 k/uL (0-0.7); Eosinophils % (A) 2 %; HCT 44.3 % (39.0-53.0); HGB 13.7 gm/dL (13.0-17.5); Hypochromasia Slight; Lymphocytes # (A) 1.2 k/uL (1.0-4.8); Lymphocytes % (A) 16 %; MCH 30.8 pg (25.0-35.0); MCHC 30.9 g/dL (31.0-37.0); MCV 99.9 fL (80.0-100.0); Macrocytosis Slight; Mean Platelet Volume 8.7; Monocytes # (A) 0.6 k/uL (0-1.0); Monocytes % (A) 8 %; Neutrophils # (A) 5.6 k/uL (1.3-7.7); Neutrophils % (A) 72 %; Platelet Count 221 k/uL (150-450); RBC 4.44 m/uL (4.30-5.90); RDW 15.8 % (11.5-15.5); WBC 7.8 k/uL (3.8-10.6)
[2020-03-25 10:50] LABS: Potassium 3.9 mmol/L (3.5-5.1)
[2020-03-25] MEDS ORDERED: SUCCINYLCHOLINE CHLORIDE VIAL 200 MG/10 ML VIAL IV ONE (13:12)
[2020-03-25] MEDS ORDERED: PROTAMINE SULFATE 10 MG/ML 5 ML VIAL IV ONE (13:12)
[2020-03-25] MEDS ORDERED: HEPARIN SODIUM,PORCINE 10,000 UNIT/ML 1 ML VIAL ONE (13:12)
[2020-03-25] MEDS ORDERED: ONDANSETRON 4 MG/2 ML VIAL ONE (13:12)
[2020-03-25] MEDS ORDERED: FUROSEMIDE 10 MG/ML 2 ML VIAL ONE (13:12)
[2020-03-25] MEDS ORDERED: MIDAZOLAM 2 MG/2 ML VIAL ONE (13:12)
[2020-03-25] MEDS ORDERED: PROPOFOL 10 MG/ML 20 ML VIAL IV ONE (13:12)
[2020-03-25] MEDS ORDERED: ePHEDrine SULFATE/0.9% NACL/PF 50 MG/5 ML SYRINGE IV ONE (13:12)
[2020-03-25] MEDS ORDERED: fentaNYL (PF) 50 MCG/ML 2 ML AMP ONE (13:12)
[2020-03-25] MEDS ORDERED: DEXAMETHASONE SOD PHOSPHATE 10 MG/ML 1 ML VIAL ONE (13:12)
[2020-03-25] MEDS ORDERED: LIDOCAINE 1% INJ 10MG/ML (20 ML MDV) SQ ONE (14:10)
[2020-03-25] MEDS ORDERED: HEPARIN SOD,PORK IN 0.45% NACL 25,000 UNIT in 0.45% NACL 1 250ML.BAG IV ONE (14:42)
[2020-03-25] MEDS ORDERED: IOPAMIDOL-370 100ML BTL INJ ONE ×2 (18:18)
[2020-03-25] MEDS ORDERED: HEPARIN SODIUM (1,000 UNIT/ML) 1,000 UNIT in SODIUM CHLORIDE 0.9% 1,000 ML IRRIGATION ONE (18:19)
[2020-03-25] MEDS ORDERED: ACETAMINOPHEN IV (For NPO) 1,000 MG in EMPTY BAG 1 BAG IVPB ONE (19:03)
[2020-03-25] MEDS ORDERED: ACETAMINOPHEN TAB 325 MG TAB PO PRN (19:03)
--- NOTE | 2020-03-25 19:24 | P.PCN ---
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 Chronic kidney disease Result No left atrial appendage mass seen on intracardiac echo Successful pulmonary vein isolation of all veins using cryo-ablation Large common left pulmonary vein Large right-sided veins Linear ablation along the anterior septum along fractionated signals Linear ablation along the left atrial roof, 5.6 cm Excellent contact force and power Complete entrance block in all 4 veins confirmed No evidence for phrenic nerve injury Dilated left atrium Esophageal deflection YES , left-sided esophagus Electrical cardioversion with a synchronized shock across the chest YES 720 J in total Procedure details Patient was brought to the EP lab in a fasting state. Written informed consent was obtained prior to the procedure. Procedure performed under general anes thesia After initial muscle relaxant use, muscle relaxants were not given thereafter in order to assess phrenic nerve during procedure. Patient prepped and draped as per protocol Full cryo-set up with standard preparation of the cryoablation tools done. Femoral Venous access obtained on the right and left groins Venous and arterial Sheaths placed. Diagnostic catheters for the high right atrium, phrenic nerve stimulation and pacing, His bundle, RV and coronary sinus placed Intracardiac echo catheter placed. Long sheath placed in the right atrium Left and right transseptal catheterization performed under intracardiac echo guidance. Intravenous heparin with aCT above 300 Later, catheter positioning and balloon positioning in the left atrium, under intracardiac echo guidance Diagnostic EP study with Coronary sinus recording Baseline measurements HV interval 41 Transseptal catheterization performed RA pressure 13/8/11 LA pressure 17/5/10 Transseptal catheterization performed with standard sheath. The cryoablation sheath was then placed with an over the wire exchange without any acute complications. All 4 pulmonary veins were isolated in the following sequence: Left superior followed by left inferior followed by right superior followed by right inferior The cryo-ablation balloon was placed at the os of each vein 1.5 mL of IV dye was injected to confirm an occluded vein Goal during cryoablation was to achieve complete occlusion of the pulmonary vein, achieve -30 degrees C at 30 seconds and achieve -40 degrees C at 60 seconds and a time to effect of less than 60-90 seconds, . If not the balloon was repositioned to obtain this result After completion of Cryoblation with durations from 180-240 seconds, entrance block was confirmed with the Attain circular catheter in a roving fashion around the antrum of the pulmonary veins Phrenic nerve pacing was performed from the SVC, right innominate vein area and diaphragm voltage was monitored. Diaphragmatic contractions were also monitored manually for strength of contraction. Parameter goals for each cryo freeze Complete occlusion of the appropriate vein -30 degrees C by 30 seconds -40 degrees C by 60 seconds Minimum between minus 40-55 degrees C Thaw time greater than 10 seconds Balloon visualized by intracardiac echo The esophagus was intubated. Esophageal Temperature monitoring with a CIRCA catheter formed. Esophageal deflection for hypothermia of the esophagus below 30 degrees C Left superior pulmonary vein, common left vein, large Complete isolation, entrance block Left inferior pulmonary vein, large common left vein Complete isolation, entrance block Right superior pulmonary vein, during phrenic nerve pacing Complete isolation, entrance block Right inferior pulmonary vein, during phrenic nerve pacing Complete isolation, entrance block At the end of the procedure the Achieve catheter was once again used to check for entrance block Phrenic nerve stimulation was performed to confirm diaphragmatic stimulation the end of the procedure Cine fluoroscopy was performed at the very end of the procedure to confirm movement of both diaphragms with inspiration and expiration Following PVI, 3-D electro-anatomic mapping was performed line complete electrical isolation of the veins was confirmed Linear ablation was performed along the anterior septum along fractionated electrograms. RF line was made from the roof down to the 6 o'clock position in the pulmonary vein, right inferior The anteroseptal left atrium within the pulmonary veins and this RF line was rendered quiescent Thereafter the roof was mapped. Fractionated electrograms are noted Roof was 5.6 cm RF line of block was made. Complete block was made Good contact force Power of 30 W Organization of patient's atrial fibrillation noted with PVI and further organization noted with linear ablations Thereafter the patient was electrically cardioverted to sinus rhythm 2 simultaneous 360 J shocks were delivered since a single shock failed At the end of the procedure the patient was extubated Heparin was reversed Venous sheaths were removed and hemostasis assured Procedures performed (PVI - CRYO Ablation) Diagnostic EP study CS pacing and recording Left and right transseptal catheterization Catheter the mapping of the tachycardia (NOT 3D mapping) Intracardiac echocardiography Pulmonary vein isolation with transseptal and comprehensive EPS, [id number] Left atrial roof line, +[id number] Linear ablation, left atrium, +[id number] Electrical cardioversion with a synchronized shock across the chest [id number]
[2020-03-25] MEDS ORDERED: SODIUM CHLORIDE 0.9% 1,000 ML IV ONE ×2 (19:33)
[2020-03-25] MEDS ORDERED: ATORVASTATIN 40 MG TAB PO SCH (21:00)
[2020-03-25] MEDS: METOPROLOL TARTRATE 25 MG TAB PO SCH (21:21)
[2020-03-25] MEDS: hydrALAZINE HCL 25 MG TAB PO SCH (21:25)
[2020-03-25] MEDS: POTASSIUM CHLORIDE ER 10 MEQ TAB.ER.PRT PO SCH (21:31)
[2020-03-26] MEDS ORDERED: LEVOTHYROXINE 100 MCG TAB PO SCH (06:30)
[2020-03-26 07:04] LABS: Calcium 8.6 mg/dL (8.4-10.2); Potassium 5.1 mmol/L (3.5-5.1)
[2020-03-26] MEDS ORDERED: PANTOPRAZOLE 40 MG TABLET PO SCH (07:30)
[2020-03-26 07:49] VITALS: BP 135/84; PULSE 71; RESP 16; TEMP 98.2
[2020-03-26] MEDS: POTASSIUM CHLORIDE ER 10 MEQ TAB.ER.PRT PO SCH (08:32)
[2020-03-26] MEDS: METOPROLOL TARTRATE 25 MG TAB PO SCH (08:34)
[2020-03-26] MEDS: hydrALAZINE HCL 25 MG TAB PO SCH (08:34)
[2020-03-26] MEDS ORDERED: FUROSEMIDE 80 MG TAB PO SCH (09:00)
[2020-03-26] MEDS ORDERED: DOXAZOSIN 2 MG TAB PO SCH (09:00)
[2020-03-26] MEDS ORDERED: SPIRONOLACTONE 25 MG TAB PO SCH (09:00)
[2020-03-26] MEDS ORDERED: COLCHICINE 0.6 MG EACH PO SCH (09:00)
--- NOTE | 2020-03-26 12:13 | P.DS ---
Providers Attending physician: Too Martel Primary care physician: Chris Arbour-Hri Hospital Course: Patient is sitting up in bed. He did walk to the bathroom. Despite being mostly in sinus rhythm at this time he is extremely short of breath walking to the bathroom Yesterday he underwent pulmonary vein isolation successfully. He had a large left common pulmonary vein and large right superior and right inferior veins. The veins were rendered completely quiescent Following that linear ablation along the anterior septum and later ablation along the roof of performed He has a very dilated left atrium The roof length was greater than 5.6 cm A complete line of block was made This resulted in organization of his atrial fibrillation but without termination He has a left atrial appendage occlusion device Following that electrical cardioversion was performed with 2 synchronized 360 J shocks Intracardiac echo revealed LV function is fairly well preserved. No pericardial effusion Afebrile 98.2F blood pressure 135/84 mmHg pulse rate in the 70s normal respirations Sounds are reduced bilaterally, mildly rhonchorous Heart sounds are distant but soft Telemetry shows sinus rhythm with PACs and PVCs Morbidly obese patient short of breath with minimal exertion going to the bathroom Impression Persistent symptomatic atrial fibrillation status post ablation as described above Chronic kidney disease Coronary artery disease status post bypass surgery and left atrial appendage occlusion device His rates during atrial fibrillation well controlled any symptomatic despite adequate rate control Previously he has failed amiodarone and let cardioversions Suggest Observation for the next 3 months If he remains in atrial fibrillation one consideration could be ablation around the appendage, and the mitral isthmus However his chances of remaining in sinus rhythm long-term a poor In addition, today despite being mostly in sinus rhythm he is still extremely short of breath Continue anticoagulation Colchicine for one week Plan - Discharge Summary Discharge Rx Participant: No New Discharge Prescriptions: New Colchicine [Colcrys] 0.6 mg PO DAILY #7 each Continue Omeprazole 20 mg PO DAILY allopurinoL [Zyloprim] 300 mg PO DAILY Atorvastatin [Lipitor] 40 mg PO HS #30 tab hydrALAZINE HCL [Apresoline] 25 mg PO TID #90 tab Doxazosin Mesylate [Cardura Xl] 4 mg PO DAILY Rivaroxaban [Xarelto] 20 mg PO W/SUPPER Cholecalciferol (Vitamin D3) [Vitamin D3] 5,000 unit PO DAILY Metoprolol Tartrate [Lopressor] 25 mg PO BID Furosemide [Lasix] 80 mg PO QAM Potassium Chloride [Klor-Con 10] 10 meq PO BID metOLazone [Zaroxolyn] 2.5 mg PO DAILY Spironolactone 25 mg PO DAILY Furosemide [Lasix] 40 mg PO PC-LUNCH Levothyroxine Sodium [Synthroid] 200 mcg PO DAILY Discharge Medication List Omeprazole 20 mg PO DAILY 11/16/15 [History] allopurinoL [Zyloprim] 300 mg PO DAILY 11/16/15 [History] Atorvastatin [Lipitor] 40 mg PO HS #30 tab 12/14/15 [Rx] hydrALAZINE HCL [Apresoline] 25 mg PO TID #90 tab 12/14/15 [Rx] Doxazosin Mesylate [Cardura Xl] 4 mg PO DAILY 01/15/16 [History] Rivaroxaban [Xarelto] 20 mg PO W/SUPPER 01/15/16 [History] Cholecalciferol (Vitamin D3) [Vitamin D3] 5,000 unit PO DAILY 05/24/18 [History] Furosemide [Lasix] 80 mg PO QAM 10/01/18 [History] Metoprolol Tartrate [Lopressor] 25 mg PO BID 10/01/18 [History] Potassium Chloride [Klor-Con 10] 10 meq PO BID 10/01/18 [History] Spironolactone 25 mg PO DAILY 01/26/20 [History] metOLazone [Zaroxolyn] 2.5 mg PO DAILY 01/26/20 [History] Furosemide [Lasix] 40 mg PO PC-LUNCH 03/19/20 [History] Levothyroxine Sodium [Synthroid] 200 mcg PO DAILY 03/19/20 [History] Colchicine [Colcrys] 0.6 mg PO DAILY #7 each 03/26/20 [Rx] Follow up Appointment(s)/Referral(s): Donna Page MD [STAFF PHYSICIAN] - 1 Week Activity/Diet/Wound Care/Special Instructions: Post EP study - Ablation instructions 1. Keep access sites dry for 2 days. 2. No heavy lifting or straining for 2 days. 3. Avoid bending the hips repeatedly for 2 days. 4. You may go up and down stairs slowly Call if the following is noted 1. Bleeding, increasing swelling or pain at the access sites. 2. Increasing chest discomfort, especially upon taking a deep breath. 3. Increasing shortness of breath, at rest or with exertion. 4. Undue cough / phlegm 5. Difficulty or pain while swallowing. 6. Pain or change in color in the extremities. 7. Fever, chills, rigors. 8. Increasing headache or neurologic symptoms. 9. Dizziness, fainting, palpitations Continue xarelto and all other medications Follow-up Dr. Page in 1 week Discharge Disposition: HOME SELF-CARE
--- NOTE | 2020-03-26 12:18 | P.PRLE ---
RE: Orlando White Dear William Orlando White underwent an A. fib ablation. I was able to organize his atrial fibrillation but he did require electrical cardioversion at the end of the procedure with a 720 J shock He still remains very short of breath in sinus rhythm However is other options including medical treatment versus pace and ablated strategy are not good approaches from either Given his morbid obesity his long-term success rate for maintaining sinus rhythm is very low Hopefully with this ablation he maintains sinus rhythm for some time Thank you for entrusting me with the care of the patient Warm regards Sincerely Too Martel
[2020-03-26] MEDS ORDERED: FUROSEMIDE 40 MG TAB PO SCH (13:30)
[2020-03-26] MEDS ORDERED: RIVAROXABAN 20 MG TAB PO SCH (17:30)
== END 2020-03-26 15:21 | disposition home or self-care (01) ==
LOC: CATHEP 10:01 → 3NCARDOBS 18:25 → CATHEP 03-26 15:21
PROVIDERS: ATTEND Internal Medicine Clinical Cardiac Electrophysiology
DX: I48.19 Other persistent atrial fibrillation (principal); I25.10 Atherosclerotic heart disease of native coronary artery without angina pectoris; I25.2 Old myocardial infarction; I50.9 Heart failure, unspecified; I12.9 Hypertensive chronic kidney disease with stage 1 through stage 4 chronic kidney disease, or unspecified chronic kidney disease; N18.9 Chronic kidney disease, unspecified; G47.33 Obstructive sleep apnea (adult) (pediatric); K21.9 Gastro-esophageal reflux disease without esophagitis; E07.9 Disorder of thyroid, unspecified; M10.9 Gout, unspecified; I25.5 Ischemic cardiomyopathy; I42.0 Dilated cardiomyopathy; E66.01 Morbid (severe) obesity due to excess calories; E78.2 Mixed hyperlipidemia; Z79.01 Long term (current) use of anticoagulants; Z87.891 Personal history of nicotine dependence; Z99.89 Dependence on other enabling machines and devices; Z79.890 Hormone replacement therapy; Z79.899 Other long term (current) drug therapy; Z95.1 Presence of aortocoronary bypass graft; Z68.42 Body mass index [BMI] 45.0-49.9, adult; Z98.890 Other specified postprocedural states
CPT/HCPCS: 85347; 92960; 93662; 93613; 93656; 93657; 80048 ×2; 83735; 85025; C1769 ×6; C1894 ×3; C1730 ×2; C1893; C1733; C1766; C1732; J2001; J1644 ×2; J0131; Q9967

== ENCOUNTER 2021-02-14 09:22 | Inpatient (IN) | payer MEDICARE ==
--- NOTE | 2021-02-14 14:36 | P.HPCAR ---
History of Present Illness Patient admitted for dofetilide initiation as an inpatient Discussed with nurse Discussed with nurse practitioner Impression Symptomatic persistent atrial fibrillation Mild cardio myopathy Congestive heart failure class 2-3 Plan BMP and magnesium and EKG at baseline Dofetilide 125 g this evening Twelve-lead EKG 3 hours after every dose of dofetilide Daily BMP and mag See office H&P Physical Exam Vitals: Intake and Output 02/13/21 02/14/21 02/14/21 22:59 06:59 14:59 Other: Weight 154.1 kg Past Medical History Past Medical History: Atrial Fibrillation, Coronary Artery Disease (CAD), Cancer, Heart Failure, GERD/Reflux, Hyperlipidemia, Hypertension, Osteoarthritis (OA), Pneumonia, Sleep Apnea/CPAP/BIPAP Additional Past Medical History / Comment(s): See Dr Martel H&P, uses CPAP, hx. gout, hx. skin cancer, left sided thoracentesis 1.5 L off in December 2015, LT ETE DETATCHED RETINA(HAD SX 02/07/16), History of Any Multi-Drug Resistant Organisms: None Reported Past Surgical History: Coronary Bypass/CABG, Joint Replacement Additional Past Surgical History / Comment(s): both knees replaced, retinal repair left eye, cardioversion,DIPIKA Past Anesthesia/Blood Transfusion Reactions: No Reported Reaction Past Psychological History: No Psychological Hx Reported Smoking Status: Former smoker Past Alcohol Use History: None Reported Additional Past Alcohol Use History / Comment(s): started smoking 1961 and quit 1965. less than 1ppd Past Drug Use History: None Reported - Past Family History Mother History Unknown: Yes Family Medical History: No Reported History Father History Unknown: Yes Family Medical History: Myocardial Infarction ([place]) Physical Examination Intake and Output 02/13/21 02/14/21 02/14/21 22:59 06:59 14:59 Other: Weight 154.1 kg Results Current Medications Generic Name Dose Route Start Last Admin Trade Name Freq PRN Reason Stop Dose Admin Atorvastatin Calcium 40 mg 02/14/21 21:00 Atorvastatin 40 Mg Tab PO HS JER Dofetilide 125 mcg 02/14/21 18:00 Dofetilide 125 Mcg Cap PO 02/14/21 18:01 ONCE ONE Furosemide 40 mg 02/15/21 13:30 Furosemide 40 Mg Tab PO PC-LUNCH JER Furosemide 80 mg 02/15/21 09:00 Furosemide 80 Mg Tab PO QAM JER Hydralazine HCl 25 mg 02/14/21 16:00 Hydralazine Hcl 25 Mg Tab PO TID [facility] Magnesium Oxide 400 mg 02/15/21 09:00 Magnesium Oxide 400 Mg Tab PO DAILY [facility] Metoprolol Tartrate 25 mg 02/14/21 21:00 Metoprolol Tartrate 50 Mg Tab PO BID [facility] Non-Formulary Medication 4 mg 02/15/21 09:00 Doxazosin Mesylate [Cardura Xl] PO DAILY [facility] Non-Formulary Medication 200 mcg 02/15/21 09:00 Levothyroxine Sodium [Synthroid] PO DAILY [facility] Rivaroxaban 20 mg 02/14/21 17:30 Rivaroxaban 20 Mg Tab PO W/SUPPER [facility] Protocol Spironolactone 25 mg 02/15/21 09:00 Spironolactone 25 Mg Tab PO DAILY [facility] Intake and Output 02/13/21 02/14/21 02/14/21 22:59 06:59 14:59 Other: Weight 154.1 kg Patient Weight 02/15/21 06:59 Weight 154.1 kg
[2021-02-14 15:31] LABS: Potassium 3.4 mmol/L (3.5-5.1)
[2021-02-14] MEDS: RIVAROXABAN 20 MG TAB PO SCH (17:17)
[2021-02-14] MEDS: hydrALAZINE HCL 25 MG TAB PO SCH ×2 (17:17→23:17)
[2021-02-14] MEDS ORDERED: FUROSEMIDE 40 MG TAB PO STA (17:21)
[2021-02-14] MEDS ORDERED: MAGNESIUM SULFATE-D5W PMX 1 GM in DEXTROSE/WATER 1 100ML.BAG IVPB PRN ×2 (17:46→18:40)
[2021-02-14] MEDS ORDERED: DOFETILIDE 125 MCG CAP PO ONE (18:00)
[2021-02-14] MEDS: POTASSIUM CHLORIDE ER 10 MEQ TAB.ER.PRT PO SCH (18:26)
[2021-02-14] MEDS: ATORVASTATIN 40 MG TAB PO SCH (20:48)
[2021-02-14] MEDS: METOPROLOL TARTRATE 25 MG TAB PO SCH (20:48)
[2021-02-14] MEDS ORDERED: POTASSIUM CHLORIDE ER 20 MEQ TAB.ER PO STA (21:15)
[2021-02-15] MEDS ORDERED: DOFETILIDE 250 MCG CAP PO ONE (06:00)
[2021-02-15] MEDS: LEVOTHYROXINE 100 MCG TAB PO SCH (06:14)
--- NOTE | 2021-02-15 07:47 | P.CONS ---
History of Present Illness - Reason for Consult Consult date: 02/15/21 - Chief Complaint Atrial fibrillation - History of Present Illness The patient is a 75-year-old white male essentially admitted for atrial fibrillation. Review of Systems Constitutional: Denies chills, Denies fever Eyes: denies blurred vision, denies pain Ears, nose, mouth and throat: Denies headache, Denies sore throat Cardiovascular: Reports as per HPI, Reports chest pain, Reports shortness of breath Respiratory: Denies cough Gastrointestinal: Denies abdominal pain, Denies diarrhea, Denies nausea, Denies vomiting Musculoskeletal: Denies myalgias Past Medical History Past Medical History: Atrial Fibrillation, Coronary Artery Disease (CAD), Cancer, Heart Failure, GERD/Reflux, Hyperlipidemia, Hypertension, Osteoarthritis (OA), Pneumonia, Sleep Apnea/CPAP/BIPAP Additional Past Medical History / Comment(s): See Dr Tahmina Mejia&P, uses CPAP, hx. gout, hx. 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 less than 1ppd Past Drug Use History: None Reported - Past Family History Mother History Unknown: Yes Family Medical History: No Reported History Father History Unknown: Yes Family Medical History: Myocardial Infarction ([place]) Medications and Allergies Home Medications Medication Instructions Recorded Confirmed Type Omeprazole 20 mg PO DAILY 11/16/15 02/14/21 History allopurinoL [Zyloprim] 300 mg PO DAILY 11/16/15 02/14/21 History Atorvastatin [Lipitor] 40 mg PO HS #30 tab 12/14/15 02/14/21 Rx hydrALAZINE HCL [Apresoline] 25 mg PO TID #90 tab 12/14/15 02/14/21 Rx Doxazosin Mesylate [Cardura Xl] 4 mg PO DAILY 01/15/16 02/14/21 History Rivaroxaban [Xarelto] 20 mg PO W/SUPPER 01/15/16 02/14/21 History Furosemide [Lasix] 80 mg PO DAILY 10/01/18 02/14/21 History Metoprolol Tartrate [Lopressor] 25 mg PO BID 10/01/18 02/14/21 History Potassium Chloride [Klor-Con 10] 10 meq PO BID@0900,1500 10/01/18 02/14/21 History Spironolactone 25 mg PO DAILY 01/26/20 02/14/21 History Furosemide [Lasix] 40 mg PO DAILY@1500 03/19/20 02/14/21 History Levothyroxine Sodium [Synthroid] 200 mcg PO SUMOTUWETHSA 03/19/20 02/14/21 History Calcium Carbonate [Tums] 1,000 mg PO BID 02/14/21 02/14/21 History Cholecalciferol (Vitamin D3) 125 mcg PO DAILY 02/14/21 02/14/21 History [Vitamin D3 (5000 Iu)] Allergies Allergy/AdvReac Type Severity Reaction Status Date / Time No Known Allergies Allergy Verified 02/14/21 14:41 Physical Exam Vitals: Vital Signs Temp Pulse Resp BP Pulse Ox 02/15/21 04:00 97.7 F 72 16 101/56 95 02/15/21 00:00 98.0 F 77 18 105/56 96 02/14/21 20:00 98.2 F 78 18 114/57 98 02/14/21 16:00 98.1 F 83 20 114/58 97 02/14/21 14:00 98.6 F 18 120/54 96 02/14/21 13:42 98.6 F 85 18 120/54 96 Intake and Output 02/14/21 02/15/21 02/15/21 22:59 06:59 14:59 Intake Total 240 10 Balance 240 10 Intake: IV 10 Invasive Line 1 10 Oral 240 Other: # Voids 1 Weight 154.8 kg - Constitutional General appearance: morbidly obese - EENT Eyes: EOMI - Neck Neck: no lymphadenopathy - Respiratory Respiratory: bilateral: diminished - Cardiovascular Rhythm: regular Heart sounds: normal: S1, S2 Abnormal Heart Sounds: no S3 Gallop - Gastrointestinal General gastrointestinal: soft, no tenderness - Integumentary Integumentary: no cellulitis Results CBC & Chem 7: 06/28/21 14:57 Labs: Abnormal Lab Results - Last 24 Hours (Table) 02/14/21 Range/Units 14:57 Potassium 3.4 L (3.5-5.1) mmol/L Carbon Dioxide 31 H (22-30) mmol/L Creatinine 1.62 H (0.66-1.25) mg/dL Glucose 101 H (74-99) mg/dL Assessment and Plan (1) Atrial fibrillation and flutter Current Visit: Yes Status: Acute Code(s): I48.91 - UNSPECIFIED ATRIAL FIBRILLATION; I48.92 - UNSPECIFIED ATRIAL FLUTTER SNOMED Code(s): 838770471 (2) Acute pulmonary edema Current Visit: No Status: Acute Code(s): J81.0 - ACUTE PULMONARY EDEMA SNOMED Code(s): 70716246 (3) COPD (chronic obstructive pulmonary disease) Current Visit: No Status: Acute Code(s): J44.9 - CHRONIC OBSTRUCTIVE PULMONARY DISEASE, UNSPECIFIED SNOMED Code(s): 43630301 (4) Atrial fibrillation Current Visit: No Status: Chronic Code(s): I48.91 - UNSPECIFIED ATRIAL FIBRILLATION SNOMED Code(s): 69383184 Plan: We'll continue to follow with cardiology. The patient seems more stable after initial treatment. Reconcile medications. See orders otherwise.
[2021-02-15] MEDS: MAGNESIUM OXIDE 400 MG TAB PO SCH (08:13)
[2021-02-15] MEDS: METOPROLOL TARTRATE 25 MG TAB PO SCH ×2 (08:13→20:53)
[2021-02-15] MEDS: DOXAZOSIN 4 MG TAB PO SCH (08:13)
[2021-02-15] MEDS: hydrALAZINE HCL 25 MG TAB PO SCH ×3 (08:13→20:53)
[2021-02-15] MEDS: FUROSEMIDE 80 MG TAB PO SCH (08:13)
[2021-02-15] MEDS: POTASSIUM CHLORIDE ER 10 MEQ TAB.ER.PRT PO SCH ×2 (08:14→15:23)
[2021-02-15] MEDS: SPIRONOLACTONE 25 MG TAB PO SCH (08:14)
[2021-02-15 08:31] LABS: Calcium 8.9 mg/dL (8.4-10.2); Potassium 3.5 mmol/L (3.5-5.1)
[2021-02-15] MEDS ORDERED: SPIRONOLACTONE 25 MG TAB PO SCH (09:00)
[2021-02-15] MEDS ORDERED: SODIUM CHLORIDE 0.9% 1,000 ML IV SCH (10:00)
--- NOTE | 2021-02-15 11:29 | CDI ---
Documentation Clarification Form Date: 02/15/2021 11:10:52 AM From: Chapis Mcmahon RN CCDS Admit Date: 02/14/2021 01:13:00 PM Patient Name: Orlando White Visit Number: [id number] Discharge Date: ATTENTION: The Clinical Documentation Specialists (CDI) and [facility] Coding Staff appreciate your assistance in clarifying documentation. Please respond to the clarification below the line at the bottom and electronically sign. The CDI & [facility] Coding staff will review the response and follow-up if needed. Please note: Queries are made part of the Legal Health Record. If you have any questions, please contact the author of this message via ITS. Dr. Too Martel Your patient has the documented diagnosis of unspecified CHF 02/14, H&P. Additional information regarding the type, acuity of CHF is requested. History/Risk Factors: 75-year-old male presents to [facility] for administration of Dofetilide initiation. Medical History: Atrial fibrillation, CAD, HTN and CHF. Clinical Indicators: VS/Pulse OX: B/P 120/54, HR 85, Temp 98.6 F Oral, RR 18, SpO2 96% ra Currently, his ejection fraction is about 40% with inferior wall hypokinesis. 03/24/20 H&P. Treatment: 02/14 Lasix 40mg PO x1; 02/15 Lasix 80mg PO Am Daily; 02/15 Lasix 40mg PO PC Lunch; 02/14 Lopressor 25mg PO BID; 02/15 Spironolactone 50mg PO Daily. In your professional opinion, can you please clarify the acuity and type of CHF if known? [ ] Chronic Systolic Heart Failure (reduced EF) [ ] Other, please specify [ ] Unable to determine (Template Last Revised: September 2020) Diagnosis Ischemic cardio myopathy Chronic heart failure class III (Left Ventricular ejection fraction 40% MTDD
[2021-02-15] MEDS: FUROSEMIDE 40 MG TAB PO SCH (12:48)
--- NOTE | 2021-02-15 12:52 | P.PN ---
Subjective Patient is seen and examined sitting up in a recliner no acute distress. He continues to atrial fibrillation. QTC is approximately 480 ms which is an increase of about 40 ms from baseline. Blood pressure 124/67 heart rate 70 afebrile maintaining oxygen saturation on room air. Laboratory data reviewed, sodium 139, potassium 3.5, creatinine 1.54 and magnesium 2.0. GENERAL: Well-appearing, well-nourished and in no acute distress. NECK: Supple without JVD or thyromegaly. LUNGS: Breath sounds clear to auscultation bilaterally. Respiration equal and unlabored. No wheezes, rales or rhonchi. HEART: Irregular rate and rhythm with systolic ejection murmur at the base, no rubs or gallops. S1 and S2 heard. EXTREMITIES: Normal range of motion, no edema. No clubbing or cyanosis. Peripheral pulses intact. ASSESSMENT Chronic persistent symptomatic atrial fibrillation Chronic systolic heart failure Hypertension Dyslipidemia PLAN Tikosyn 125 mcg tonight. EKG 3-hours after dose. Call Dr. Martel with QT for next dose instructions. BMP and magnesium in the morning. NPO after midnight tonight for cardioversion in the morning if he does not convert. Further recommendations to follow based on clinical course. Nurse Practitioner note has been reviewed, I agree with a documented findings and plan of care. Patient was seen and examined. Objective - Vital Signs Vital signs: Vital Signs Temp 97.9 F 02/15/21 11:09 Pulse 72 02/15/21 11:09 Resp 20 02/15/21 11:09 BP 124/67 02/15/21 11:09 Pulse Ox 95 02/15/21 11:09 Intake & Output 02/14/21 02/15/21 02/15/21 18:59 06:59 18:59 Intake Total 240 10 120 Balance 240 10 120 Weight 154.1 kg 154.8 kg Intake: IV 10 Invasive Line 1 10 Oral 240 120 Other: # Voids 1 1 - Labs CBC & Chem 7: 02/15/21 07:27 Labs: Abnormal Lab Results - Last 24 Hours (Table) 02/14/21 02/15/21 Range/Units 14:57 07:27 Potassium 3.4 L (3.5-5.1) mmol/L Carbon Dioxide 31 H 31 H (22-30) mmol/L Creatinine 1.62 H 1.54 H (0.66-1.25) mg/dL Glucose 101 H 118 H (74-99) mg/dL
[2021-02-15] MEDS: RIVAROXABAN 20 MG TAB PO SCH (17:34)
[2021-02-15] MEDS ORDERED: DOFETILIDE 125 MCG CAP PO ONE (18:00)
[2021-02-15] MEDS: ATORVASTATIN 40 MG TAB PO SCH (20:53)
[2021-02-16] MEDS ORDERED: DOFETILIDE 125 MCG CAP PO ONE (06:00)
[2021-02-16] MEDS: LEVOTHYROXINE 100 MCG TAB PO SCH (06:45)
[2021-02-16] MEDS: POTASSIUM CHLORIDE ER 10 MEQ TAB.ER.PRT PO SCH ×2 (06:45→17:00)
[2021-02-16] MEDS: hydrALAZINE HCL 25 MG TAB PO SCH ×3 (06:45→20:00)
[2021-02-16] MEDS: DOXAZOSIN 4 MG TAB PO SCH (06:45)
[2021-02-16] MEDS: SPIRONOLACTONE 25 MG TAB PO SCH (06:45)
[2021-02-16] MEDS: FUROSEMIDE 80 MG TAB PO SCH (06:45)
[2021-02-16] MEDS: METOPROLOL TARTRATE 25 MG TAB PO SCH (06:46)
[2021-02-16] MEDS: MAGNESIUM OXIDE 400 MG TAB PO SCH (06:46)
[2021-02-16] MEDS ORDERED: PROPOFOL 10 MG/ML 20 ML VIAL IV ONE (07:50)
[2021-02-16] MEDS ORDERED: LIDOCAINE 1% INJ 10MG/ML (20 ML MDV) ONE (07:50)
[2021-02-16] MEDS ORDERED: SODIUM CHLORIDE 0.9% 250 ML IV ONE (07:50)
--- NOTE | 2021-02-16 08:16 | P.EPPROC ---
- EP Procedure Note Electrophysiology Procedure Note: Diagnosis Symptomatic persistent atrial fibrillation Ischemic cardio myopathy Congestive heart failure, chronic, systolic, left ventricular ejection fraction 40% Known CAD status post coronary artery bypass grafting Patient admitted for dofetilide initiation in the hospital Currently on dofetilide 125 g twice daily Labs are reviewed sodium 139, potassium 3.5, BUN 18 and creatinine 1.54 Procedure 360 J shock in the AP configuration failed to convert the patient to sinus rhythm 720 J shock successfully converted the patient to sinus rhythm with PVCs Plan continue dofetilide Twelve-lead EKG when he gets back to his room today Continue anticoagulation Continue heart failure medications Monitor electrolytes and QT interval
--- NOTE | 2021-02-16 08:39 | P.PN ---
Subjective Progress Note Date: 02/16/21 Principal diagnosis: Status posts cardioversion The patient is 75-year-old white male essentially admitted for atrial fibrillation with rapid ventricular response. The patient status post cardioversion doing quite well. He is now in sinus rhythm. Appropriate medication adjustment done by cardiology. Patient feels much improved. No voiding difficulties. Objective - Vital Signs Vital signs: Vital Signs Temp 98.2 F 02/16/21 08:00 Pulse 71 02/16/21 08:00 Resp 16 02/16/21 08:00 BP 120/63 02/16/21 08:00 Pulse Ox 98 02/16/21 08:00 Intake & Output 02/15/21 02/16/21 02/16/21 18:59 06:59 18:59 Intake Total 480 50 Balance 480 50 Weight 153.9 kg Intake: IV 50 Oral 480 0 Other: # Voids 1 1 - Constitutional General appearance: Present: morbidly obese - EENT Eyes: Absent: abnormal pupil Ears: bilateral: normal - Neck Neck: Present: lymphadenopathy - Respiratory Respiratory: bilateral: CTA - Cardiovascular Rhythm: regular Heart sounds: normal: S1, S2 Abnormal Heart Sounds: Absent: S3 Gallop - Gastrointestinal General gastrointestinal: Present: soft. Absent: tenderness - Integumentary Integumentary: Absent: cellulitis - Psychiatric Psychiatric: Present: A&O x's 3 - Labs CBC & Chem 7: 02/15/21 07:27 Assessment and Plan (1) Atrial fibrillation and flutter Current Visit: Yes Status: Acute Code(s): I48.91 - UNSPECIFIED ATRIAL FIBRILLATION; I48.92 - UNSPECIFIED ATRIAL FLUTTER SNOMED Code(s): 561949427 (2) Acute pulmonary edema Current Visit: No Status: Acute Code(s): J81.0 - ACUTE PULMONARY EDEMA SNOMED Code(s): 18779170 (3) COPD (chronic obstructive pulmonary disease) Current Visit: No Status: Acute Code(s): J44.9 - CHRONIC OBSTRUCTIVE PULM ONARY DISEASE, UNSPECIFIED SNOMED Code(s): 05609229 (4) Atrial fibrillation Current Visit: No Status: Chronic Code(s): I48.91 - UNSPECIFIED ATRIAL FIBRILLATION SNOMED Code(s): 11600860 Plan: We'll continue to follow with cardiology. Status post cardioversion Reconcile medications. See orders otherwise. Anticipate discharge in next 24 hours
[2021-02-16 11:10] LABS: Calcium 9.3 mg/dL (8.4-10.2); Potassium 3.8 mmol/L (3.5-5.1)
[2021-02-16] MEDS: FUROSEMIDE 40 MG TAB PO SCH (11:48)
[2021-02-16] MEDS: RIVAROXABAN 20 MG TAB PO SCH (17:00)
[2021-02-16] MEDS: DOFETILIDE 125 MCG CAP PO SCH (17:44)
[2021-02-16] MEDS: ATORVASTATIN 40 MG TAB PO SCH (20:00)
[2021-02-17] MEDS: LEVOTHYROXINE 100 MCG TAB PO SCH (06:33)
[2021-02-17] MEDS: DOFETILIDE 125 MCG CAP PO SCH ×2 (06:33→17:15)
[2021-02-17 07:47] LABS: Calcium 9.9 mg/dL (8.4-10.2); Magnesium 1.9 mg/dL (1.6-2.3); Potassium 3.6 mmol/L (3.5-5.1)
--- NOTE | 2021-02-17 08:13 | P.PN ---
Subjective Principal diagnosis: Status posts cardioversion The patient is 75-year-old white male essentially admitted for atrial fibrillation with rapid ventricular response. The patient status post cardioversion postop day #1 doing quite well. He is now in sinus rhythm. Appropriate medication adjustment done by cardiology. Patient feels much improved. No voiding difficulties. Objective - Vital Signs Vital signs: Vital Signs Temp 98.4 F 02/16/21 20:00 Pulse 86 02/17/21 04:00 Resp 18 02/17/21 04:00 BP 117/59 02/17/21 04:00 Pulse Ox 95 02/17/21 04:00 Intake & Output 02/16/21 02/17/21 02/17/21 18:59 06:59 18:59 Intake Total 628 Balance 628 Weight 153.5 kg Intake: IV 50 Oral 578 Other: # Voids 2 1 - Constitutional General appearance: Present: morbidly obese - EENT Eyes: Absent: abnormal pupil - Neck Neck: Absent: lymphadenopathy - Respiratory Respiratory: bilateral: CTA - Cardiovascular Rhythm: regular Heart sounds: normal: S1, S2 Abnormal Heart Sounds: Absent: S3 Gallop - Gastrointestinal General gastrointestinal: Present: soft - Integumentary Integumentary: Absent: cellulitis - Labs CBC & Chem 7: 02/17/21 06:49 Labs: Abnormal Lab Results - Last 24 Hours (Table) 02/16/21 02/17/21 Range/Units 10:20 06:49 Carbon Dioxide 33 H 31 H (22-30) mmol/L BUN 22 H (9-20) mg/dL Creatinine 1.57 H 1.39 H (0.66-1.25) mg/dL Glucose 120 H 107 H (74-99) mg/dL Assessment and Plan (1) Atrial fibrillation and flutter Current Visit: Yes Status: Acute Code(s): I48.91 - UNSPECIFIED ATRIAL FIBRILLATION; I48.92 - UNSPECIFIED ATRIAL FLUTTER SNOMED Code(s): 585796057 (2) Acute pulmonary edema Current Visit: No Status: Acute Code(s): J81.0 - ACUTE PULMONARY EDEMA SNOMED Code(s): 26903641 (3) COPD (chronic obstructive pulmonary disease) Current Visit: No Status: Acute Code(s): J44.9 - CHRONIC OBSTRUCTIVE PULMONARY DISEASE, UNSPECIFIED SNOMED Code(s): 04999601 (4) Atrial fibrillation Current Visit: No Status: Chronic Code(s): I48.91 - UNSPECIFIED ATRIAL FIBRILLATION SNOMED Code(s): 87851153 Plan: We'll continue to follow with cardiology. Reversion postop day #1. Anticipate discharge once cleared by cardiology today.
[2021-02-17] MEDS: SPIRONOLACTONE 25 MG TAB PO SCH (08:46)
[2021-02-17] MEDS: POTASSIUM CHLORIDE ER 10 MEQ TAB.ER.PRT PO SCH ×2 (08:46→12:34)
[2021-02-17] MEDS: hydrALAZINE HCL 25 MG TAB PO SCH ×3 (08:46→19:37)
[2021-02-17] MEDS: MAGNESIUM OXIDE 400 MG TAB PO SCH (08:46)
[2021-02-17] MEDS: FUROSEMIDE 80 MG TAB PO SCH (08:46)
[2021-02-17] MEDS: DOXAZOSIN 4 MG TAB PO SCH (08:46)
[2021-02-17] MEDS: METOPROLOL SUCCINATE (ER) 25 MG TAB.ER.24H PO SCH (08:47)
[2021-02-17] MEDS: FUROSEMIDE 40 MG TAB PO SCH (12:34)
--- NOTE | 2021-02-17 13:32 | P.PN ---
Subjective Patient is seen and examined sitting up in a recliner no acute distress. He was successfully cardioverted and is maintaining SR. He states overall his breathing and energy level have improved since his cardioversion. He denies chest pain, shortness of breath, dizziness or palpitations. Blood pressure 129/63 heart rate 79 afebrile and maintaining oxygen saturation on room air. Laboratory data reviewed, sodium 137, potassium 3.6, creatinine 1.39 and magnesium 1.9. Absolute QT 440 ms. GENERAL: Well-appearing, well-nourished and in no acute distress. NECK: Supple without JVD or thyromegaly. LUNGS: Breath sounds clear to auscultation bilaterally. Respiration equal and unlabored. No wheezes, rales or rhonchi. HEART: Regular rate and rhythm with systolic ejection murmur at the base, no rubs or gallops. S1 and S2 heard. EXTREMITIES: Normal range of motion, 2+ lower extremity pitting edema. No clubbing or cyanosis. Peripheral pulses intact. ASSESSMENT Chronic persistent symptomatic atrial fibrillation Chronic systolic heart failure Hypertension Dyslipidemia PLAN Continue tikosyn 125 mcg BID. Nurse Practitioner note has been reviewed, I agree with a documented findings and plan of care. Patient was seen and examined. Objective - Vital Signs Vital signs: Vital Signs Temp 96.8 F L 02/17/21 08:00 Pulse 79 02/17/21 12:00 Resp 16 02/17/21 12:00 BP 129/63 02/17/21 12:00 Pulse Ox 97 02/17/21 12:00 Intake & Output 02/16/21 02/17/21 02/17/21 18:59 06:59 18:59 Intake Total 628 0 Balance 628 0 Weight 153.5 kg Intake: IV 50 Oral 578 0 Other: # Voids 2 1 1 - Labs CBC & Chem 7: 02/17/21 06:49 Labs: Abnormal Lab Results - Last 24 Hours (Table) 02/17/21 Range/Units 06:49 Carbon Dioxide 31 H (22-30) mmol/L Creatinine 1.39 H (0.66-1.25) mg/dL Glucose 107 H (74-99) mg/dL
[2021-02-17] MEDS: RIVAROXABAN 20 MG TAB PO SCH (17:15)
[2021-02-17] MEDS: ATORVASTATIN 40 MG TAB PO SCH (19:37)
[2021-02-18] MEDS: DOFETILIDE 125 MCG CAP PO SCH (06:14)
[2021-02-18] MEDS: LEVOTHYROXINE 100 MCG TAB PO SCH (06:14)
[2021-02-18 08:06] LABS: Calcium 9.7 mg/dL (8.4-10.2); Magnesium 1.9 mg/dL (1.6-2.3); Potassium 3.8 mmol/L (3.5-5.1)
[2021-02-18] MEDS: FUROSEMIDE 80 MG TAB PO SCH (08:13)
[2021-02-18] MEDS: DOXAZOSIN 4 MG TAB PO SCH (08:13)
[2021-02-18] MEDS: MAGNESIUM OXIDE 400 MG TAB PO SCH (08:13)
[2021-02-18] MEDS: METOPROLOL SUCCINATE (ER) 25 MG TAB.ER.24H PO SCH (08:13)
[2021-02-18] MEDS: POTASSIUM CHLORIDE ER 10 MEQ TAB.ER.PRT PO SCH ×2 (08:13→12:55)
[2021-02-18] MEDS: SPIRONOLACTONE 25 MG TAB PO SCH (08:13)
[2021-02-18] MEDS: hydrALAZINE HCL 25 MG TAB PO SCH (08:13)
[2021-02-18 08:16] VITALS: PULSE 85; RESP 16; TEMP 96.8
--- NOTE | 2021-02-18 08:21 | P.PN ---
Subjective Principal diagnosis: Status posts cardioversion The patient is 75-year-old white male essentially admitted for atrial fibrillation with rapid ventricular response. The patient status post cardioversion postop day #3 doing quite well. He is now in sinus rhythm. Appropriate medication adjustment done by cardiology. Patient feels much improved. No voiding difficulties. Objective - Vital Signs Vital signs: Vital Signs Temp 96.8 F L 02/18/21 08:00 Pulse 85 02/18/21 08:00 Resp 16 02/18/21 08:00 BP 118/58 02/18/21 08:00 Pulse Ox 96 02/18/21 08:00 Intake & Output 02/17/21 02/18/21 02/18/21 18:59 06:59 18:59 Intake Total 480 100 Balance 480 100 Weight 152.6 kg Intake: Oral 480 100 Other: # Voids 1 1 - Constitutional General appearance: Present: morbidly obese - EENT Eyes: Absent: abnormal pupil - Neck Neck: Absent: lymphadenopathy - Respiratory Respiratory: bilateral: CTA - Cardiovascular Rhythm: regular Heart sounds: normal: S1, S2 Abnormal Heart Sounds: Absent: S3 Gallop - Gastrointestinal General gastrointestinal: Present: soft. Absent: tenderness - Integumentary Integumentary: Absent: cellulitis - Labs CBC & Chem 7: 02/18/21 06:55 Labs: Abnormal Lab Results - Last 24 Hours (Table) 02/18/21 Range/Units 06:55 Carbon Dioxide 33 H (22-30) mmol/L BUN 22 H (9-20) mg/dL Creatinine 1.45 H (0.66-1.25) mg/dL Glucose 105 H (74-99) mg/dL Assessment and Plan (1) Atrial fibrillation and flutter Current Visit: Yes Status: Acute Code(s): I48.91 - UNSPECIFIED ATRIAL FIBRILLATION; I48.92 - UNSPECIFIED ATRIAL FLUTTER SNOMED Code(s): 726254024 (2) Acute pulmonary edema Current Visit: No Status: Acute Code(s): J81.0 - ACUTE PULMONARY EDEMA SNOMED Code(s): 19780265 (3) COPD (chronic obstructive pulmonary disease) Current Visit: No Status: Acute Code(s): J44.9 - CHRONIC OBSTRUCTIVE PULMONARY DISEASE, UNSPECIFIED SNOMED Code(s): 40521761 (4) Atrial fibrillation Current Visit: No Status: Chronic Code(s): I48.91 - UNSPECIFIED ATRIAL FIBRILLATION SNOMED Code(s): 10415777 Plan: We'll continue to follow with cardiology. Reversion postop day #3 Anticipate discharge once cleared by cardiology today.
[2021-02-18] MEDS: FUROSEMIDE 40 MG TAB PO SCH (12:55)
[2021-02-18 12:57] VITALS: BP 138/69
--- NOTE | 2021-02-18 13:29 | P.DS ---
Providers Date of admission: 02/14/21 13:13 Attending physician: Too Martel Primary care physician: Chris Olivera [facility] Course: Patient is seen and examined sitting up in a recliner no acute distress. He was successfully cardioverted and is maintaining SR. He states overall his breathing and energy level have improved since his cardioversion. He denies chest pain, shortness of breath, dizziness or palpitations. Blood pressure 129/63 heart rate 79 afebrile and maintaining oxygen saturation on room air. Laboratory data reviewed, sodium 137, potassium 3.6, creatinine 1.39 and magnesium 1.9. Absolute QT 440 ms. 02/18/2021 Patient seen and examined sitting up with his in no acute distress. He has no symptoms of chest pain, shortness of breath, dizziness or palpitations. He states his breathing has improved since admission. Blood pressure 138/69 heart rate 85 afebrile maintaining oxygen saturation on room air. Telemetry tracings reviewed, he continues to maintain sinus mechanism. Laboratory data reviewed, sodium 137, potassium 3.8, creatinine 1.45 and magnesium 1.9. Absolute QT interval is less than 440 ms. GENERAL: Well-appearing, well-nourished and in no acute distress. NECK: Supple without JVD or thyromegaly. LUNGS: Breath sounds clear to auscultation bilaterally. Respiration equal and unlabored. No wheezes, rales or rhonchi. HEART: Regular rate and rhythm with systolic ejection murmur at the base, no rubs or gallops. S1 and S2 heard. EXTREMITIES: Normal range of motion, 2+ lower extremity pitting edema. No clubbing or cyanosis. Peripheral pulses intact. ASSESSMENT Chronic persistent symptomatic atrial fibrillation Chronic systolic heart failure Hypertension Dyslipidemia PLAN He is stable to be discharged home on current medical regimen with the addition of Tikosyn [address] Martel had an extensive education session with the patient and his regarding this new medication. Follow-up in the office with Dr. Shepard in one week and then Dr. Nagy thereafter in 3 months. Nurse Practitioner note has been reviewed, I agree with a documented findings and plan of care. Patient was seen and examined. Patient Condition at Discharge: Stable Plan - Discharge Summary Discharge Rx Participant: No New Discharge Prescriptions: New Spironolactone [Aldactone] 50 mg PO DAILY tab Magnesium Oxide [Mag-Ox] 400 mg PO DAILY #90 tab Dofetilide [Tikosyn] 125 mcg PO Q12HR@0600,1800 cap Metoprolol Succinate (ER) [Toprol XL] 25 mg PO DAILY #90 tab.er.24h Continue Omeprazole 20 mg PO DAILY allopurinoL [Zyloprim] 300 mg PO DAILY Atorvastatin [Lipitor] 40 mg PO HS #30 tab hydrALAZINE HCL [Apresoline] 25 mg PO TID #90 tab Doxazosin Mesylate [Cardura Xl] 4 mg PO DAILY Rivaroxaban [Xarelto] 20 mg PO W/SUPPER Furosemide [Lasix] 80 mg PO DAILY Potassium Chloride [Klor-Con 10] 10 meq PO BID@0900,1500 Furosemide [Lasix] 40 mg PO DAILY@1500 Levothyroxine Sodium [Synthroid] 200 mcg PO SUMOTUWETHSA Cholecalciferol (Vitamin D3) [Vitamin D3 (5000 Iu)] 125 mcg PO DAILY Calcium Carbonate [Tums] 1,000 mg PO BID Discontinued Metoprolol Tartrate [Lopressor] 25 mg PO BID Spironolactone 25 mg PO DAILY Discharge Medication List Omeprazole 20 mg PO DAILY 11/16/15 [History] allopurinoL [Zyloprim] 300 mg PO DAILY 11/16/15 [History] Atorvastatin [Lipitor] 40 mg PO HS #30 tab 12/14/15 [Rx] hydrALAZINE HCL [Apresoline] 25 mg PO TID #90 tab 12/14/15 [Rx] Doxazosin Mesylate [Cardura Xl] 4 mg PO DAILY 01/15/16 [History] Rivaroxaban [Xarelto] 20 mg PO W/SUPPER 01/15/16 [History] Furosemide [Lasix] 80 mg PO DAILY 10/01/18 [History] Potassium Chloride [Klor-Con 10] 10 meq PO BID@0900,1500 10/01/18 [History] Furosemide [Lasix] 40 mg PO DAILY@1500 03/19/20 [History] Levothyroxine Sodium [Synthroid] 200 mcg PO SUMOTUWETHSA 03/19/20 [History] Calcium Carbonate [Tums] 1,000 mg PO BID 02/14/21 [History] Cholecalciferol (Vitamin D3) [Vitamin D3 (5000 Iu)] 125 mcg PO DAILY 02/14/21 [History] Dofetilide [Tikosyn] 125 mcg PO Q12HR@0600,1800 cap 02/18/21 [Rx] Magnesium Oxide [Mag-Ox] 400 mg PO DAILY #90 tab 02/18/21 [Rx] Metoprolol Succinate (ER) [Toprol XL] 25 mg PO DAILY #90 tab.er.24h 02/18/21 [Rx] Spironolactone [Aldactone] 50 mg PO DAILY tab 02/18/21 [Rx] Follow up Appointment(s)/Referral(s): Too Martel MD [STAFF PHYSICIAN] - 6 Weeks (3 months) Donna Page MD [STAFF PHYSICIAN] - 1 Week
== END 2021-02-18 14:35 | disposition home or self-care (01) | DRG 309 ==
LOC: 3SCARD 13:13
PROVIDERS: ADMIT Internal Medicine Clinical Cardiac Electrophysiology; ATTEND Internal Medicine Clinical Cardiac Electrophysiology
DX: I48.19 Other persistent atrial fibrillation (principal); I50.22 Chronic systolic (congestive) heart failure; I42.9 Cardiomyopathy, unspecified; I11.0 Hypertensive heart disease with heart failure; I25.10 Atherosclerotic heart disease of native coronary artery without angina pectoris; K21.9 Gastro-esophageal reflux disease without esophagitis; E78.5 Hyperlipidemia, unspecified; M19.90 Unspecified osteoarthritis, unspecified site; Z95.1 Presence of aortocoronary bypass graft; Z85.828 Personal history of other malignant neoplasm of skin; Z87.891 Personal history of nicotine dependence; Z82.49 Family history of ischemic heart disease and other diseases of the circulatory system; Z79.01 Long term (current) use of anticoagulants; Z79.890 Hormone replacement therapy; I48.92 Unspecified atrial flutter; J44.9 Chronic obstructive pulmonary disease, unspecified; Z79.899 Other long term (current) drug therapy; M10.9 Gout, unspecified; G47.30 Sleep apnea, unspecified
CPT/HCPCS: 80048; 83735; 84443; 92960

== ENCOUNTER 2021-03-08 13:28 | Inpatient (IN) | payer MEDICARE ==
[2021-03-08] MEDS ORDERED: SODIUM CHLORIDE 0.9% 1,000 ML IV STA (14:11)
[2021-03-08 14:42] LABS: Albumin 3.3 g/dL (3.5-5.0); Calcium 9.1 mg/dL (8.4-10.2); Potassium 4.4 mmol/L (3.5-5.1); Total Bilirubin 0.6 mg/dL (0.2-1.3); Total Protein 6.3 g/dL (6.3-8.2)
[2021-03-08 14:57] LABS: Anisocytosis Slight; Basophils % (A) 0 %; Eosinophils % (A) 0 %; HCT 28.2 % (39.0-53.0); HGB 7.6 gm/dL (13.0-17.5); Hypochromasia Marked; Lymphocytes # (A) 0.5 k/uL (1.0-4.8); Lymphocytes % (A) 7 %; MCH 22.7 pg (25.0-35.0); MCHC 26.9 g/dL (31.0-37.0); MCV 84.5 fL (80.0-100.0); Mean Platelet Volume 7.5; Monocytes # (A) 0.1 k/uL (0-1.0); Monocytes % (A) 1 %; Neutrophils # (A) 6.1 k/uL (1.3-7.7); Neutrophils % (A) 91 %; Platelet Count 306 k/uL (150-450); Poikilocytosis Slight; RBC 3.34 m/uL (4.30-5.90); RDW 18.6 % (11.5-15.5); WBC 6.7 k/uL (3.8-10.6)
--- NOTE | 2021-03-08 15:25 | ED ---
Recheck HPI - General Source: patient, RN notes reviewed Mode of arrival: wheelchair Limitations: no limitations <Yosef Flores - Last Filed: 03/08/21 16:23> <Diandra Carlton - Last Filed: 03/09/21 01:21> - General Chief Complaint: Recheck/Abnormal Lab/Rx Stated Complaint: Abn labs,Sent by pcp Time Seen by Provider: 03/08/21 13:54 - History of Present Illness Initial Comments: Patient is a 75-year-old male that presents emergency department per his primary care's request due to abnormal labs. He notes his primary care said his hemoglobin was low around 7. Patient was a overweight but well-appearing 75-year-old male. He notes that he did have open-heart surgery within the past year. He notes that he gets fatigued more easily. Patient's primary care noted that they wanted to inform staff that he has on a new class III antiarrhythmic medication. Patient denied any pain or other complaints. He denied any chest pain shortness of breath headache nausea vomiting diarrhea constipation fever fatigue chills. (Yosef Flores) - Related Data Home Medications Medication Instructions Recorded Confirmed Omeprazole 20 mg PO DAILY 11/16/15 03/08/21 allopurinoL [Zyloprim] 300 mg PO DAILY 11/16/15 03/08/21 Doxazosin Mesylate [Cardura Xl] 4 mg PO DAILY 01/15/16 03/08/21 Rivaroxaban [Xarelto] 20 mg PO HS 01/15/16 03/08/21 Potassium Chloride [Klor-Con 10] 10 meq PO BID@0900,1500 10/01/18 03/08/21 Furosemide [Lasix] 40 mg PO BID@0900,1500 03/19/20 03/08/21 Levothyroxine Sodium [Synthroid] 200 mcg PO SUMOTUWETHSA@0700 03/19/20 03/08/21 Calcium Carbonate [Tums] 1,000 mg PO BID 02/14/21 03/08/21 Cholecalciferol (Vitamin D3) 125 mcg PO DAILY 02/14/21 03/08/21 [Vitamin D3 (5000 Iu)] Dofetilide [Tikosyn] 125 mcg PO BID@0900,2100 03/08/21 03/08/21 Spironolactone [Aldactone] 25 mg PO DAILY 03/08/21 03/08/21 hydrALAZINE HCL [Apresoline] 25 mg PO TID@0900,1500,2100 03/08/21 03/08/21 predniSONE [Deltasone] 40 mg PO DAILY 03/08/21 03/08/21 Previous Rx's Medication Instructions Recorded Atorvastatin [Lipitor] 40 mg PO HS #30 tab 12/14/15 Magnesium Oxide [Mag-Ox] 400 mg PO DAILY #90 tab 02/18/21 Metoprolol Succinate (ER) [Toprol 25 mg PO DAILY #90 tab.er.24h 02/18/21 XL] Allergies Allergy/AdvReac Type Severity Reaction Status Date / Time No Known Allergies Allergy Verified 03/08/21 16:40 Review of Systems ROS Other: All systems not noted in ROS Statement are negative. <Yosef Flores - Last Filed: 03/08/21 16:23> ROS Other: All systems not noted in ROS Statement are negative. <Diandra Carlton - Last Filed: 03/09/21 01:21> ROS Statement: Those systems with pertinent positive or pertinent negative responses have been documented in the HPI. Past Medical History Past Medical History: Atrial Fibrillation, Coronary Artery Disease (CAD), Cancer, Heart Failure, GERD/Reflux, Hyperlipidemia, Hypertension, Osteoarthritis (OA), Pneumonia, Sleep Apnea/CPAP/BIPAP Additional Past Medical History / Comment(s): See Dr Tahmina Johnson, uses CPAP, hx. gout, hx. skin cancer, left sided thoracentesis 1.5 L off in December 2015, LT ETE DETATCHED RETINA(HAD SX 02/07/16), History of Any Multi-Drug Resistant Organisms: None Reported Past Surgical History: Coronary Bypass/CABG, Joint Replacement Additional Past Surgical History / Comment(s): both knees replaced, retinal repair left eye, cardioversion,DIPIKA Past Anesthesia/Blood Transfusion Reactions: No Reported Reaction Past Psychological History: No Psychological Hx Reported Smoking Status: Former smoker Past Alcohol Use History: None Reported Past Drug Use History: None Reported - Past Family History Mother History Unknown: Yes Family Medical History: No Reported History Father History Unknown: Yes Family Medical History: Myocardial Infarction ([place]) <Yosef Flores - Last Filed: 03/08/21 16:23> General Exam Limitations: no limitations General appearance: alert, in no apparent distress, obese Head exam: Present: atraumatic, normocephalic, normal inspection Eye exam: Present: normal appearance, PERRL, EOMI. Absent: scleral icterus, conjunctival injection, periorbital swelling Neck exam: Present: normal inspection Respiratory exam: Present: normal lung sounds bilaterally. Absent: respiratory distress, wheezes, rales, rhonchi, stridor Cardiovascular Exam: Present: regular rate, normal rhythm, normal heart sounds. Absent: systolic murmur, diastolic murmur, rubs, gallop, clicks GI/Abdominal exam: Present: soft, normal bowel sounds. Absent: distended, tenderness, guarding, rebound, rigid Extremities exam: Present: normal inspection, full ROM, normal capillary refill. Absent: tenderness, pedal edema, joint swelling, calf tenderness Neurological exam: Present: alert, oriented X3 Psychiatric exam: Present: normal affect, normal mood Skin exam: Present: warm, dry, intact, normal color. Absent: rash <Yosef Flores - Last Filed: 03/08/21 16:23> Course Vital Signs 03/08/21 03/08/21 03/08/21 13:46 17:24 17:31 Temperature 98.8 F 98.5 F 98.6 F Pulse Rate 86 90 86 Respiratory 18 18 18 Rate Blood Pressure 116/69 128/80 129/74 O2 Sat by Pulse 97 Oximetry 03/08/21 03/08/21 03/08/21 17:41 18:01 18:11 Temperature 98.5 F 98.4 F 98.0 F Pulse Rate 84 78 78 Respiratory 18 18 18 Rate Blood Pressure 121/71 126/76 124/78 O2 Sat by Pulse Oximetry 03/08/21 22:16 Temperature Pulse Rate 82 Respiratory 18 Rate Blood Pressure 131/79 O2 Sat by Pulse 95 Oximetry Medical Decision Making - Lab Data Result diagrams: 03/08/21 14:19 03/08/21 14:19 - EKG Data -: EKG Interpreted by Md EKG shows normal: sinus rhythm Rate: normal - Radiology Data Radiology results: report reviewed, image reviewed <Yosef Flores - Last Filed: 03/08/21 16:23> - Lab Data Result diagrams: 03/08/21 14:19 03/08/21 14:19 <Diandra Carlton - Last Filed: 03/09/21 01:21> - Medical Decision Making 75-year-old male complaining of fatigue and low hemoglobin on regular lab dry primary care. Repeat labs, chest x-ray, EKG, cardiac tech ordered. Labs: Hemoglobin 7.6, rest of labs unremarkable compared to baseline. Case discussed with Dr. Carlton, patient will be admitted for blood transfusion. Dr. Olivera consulted and said the patient's hemoglobin was 11 something in August, once admitted with a GI consult and a blood transfusion. (Yosef Flores) I was available for consultation in the emergency department. The history and physical exam were done by the midlevel provider. I was consulted for this patients care. I reviewed the case with the midlevel provider and based on their presentation of the patient, I agree with the assessment, medical decision making and plan of care as documented. Chart was dictated using [employer] dictation software. Attempts were made to correct any dictation errors however some typographical errors may persist. (Diandra Carlton) - Lab Data Lab Results 03/08/21 03/08/21 03/08/21 Range/Units 14:19 14:19 14:19 WBC 6.7 (3.8-10.6) k/uL RBC 3.34 L (4.30-5.90) m/uL Hgb 7.6 L (13.0-17.5) gm/dL Hct 28.2 L (39.0-53.0) % MCV 84.5 (80.0-100.0) fL MCH 22.7 L (25.0-35.0) pg MCHC 26.9 L (31.0-37.0) g/dL RDW 18.6 H (11.5-15.5) % Plt Count 306 (150-450) k/uL MPV 7.5 Neutrophils % 91 % Lymphocytes % 7 % Monocytes % 1 % Eosinophils % 0 % Basophils % 0 % Neutrophils # 6.1 (1.3-7.7) k/uL Lymphocytes # 0.5 L (1.0-4.8) k/uL Monocytes # 0.1 (0-1.0) k/uL Eosinophils # 0.0 (0-0.7) k/uL Basophils # 0.0 (0-0.2) k/uL Hypochromasia Marked Poikilocytosis Slight Anisocytosis Slight APTT 25.9 (22.0-30.0) sec Sodium 138 (137-145) mmol/L Potassium 4.4 (3.5-5.1) mmol/L Chloride 104 (98-107) mmol/L Carbon Dioxide 24 (22-30) mmol/L Anion Gap 10 mmol/L BUN 19 (9-20) mg/dL Creatinine 1.40 H (0.66-1.25) mg/dL Est GFR (CKD-EPI)AfAm 56 (>60 ml/min/1.73 sqM) Est GFR (CKD-EPI)NonAf 48 (>60 ml/min/1.73 sqM) Glucose 160 H (74-99) mg/dL Calcium 9.1 (8.4-10.2) mg/dL Total Bilirubin 0.6 (0.2-1.3) mg/dL AST 28 (17-59) U/L ALT 14 (4-49) U/L Alkaline Phosphatase 107 (38-126) U/L Troponin I (0.000-0.034) ng/mL Total Protein 6.3 (6.3-8.2) g/dL Albumin 3.3 L (3.5-5.0) g/dL Lipase 176 (23-300) U/L Blood Type Blood Type Recheck Bld Type Recheck Status Antibody Screen Crossmatch Spec Expiration Date 03/08/21 03/08/21 Range/Units 14:19 14:19 WBC (3.8-10.6) k/uL RBC (4.30-5.90) m/uL Hgb (13.0-17.5) gm/dL Hct (39.0-53.0) % MCV (80.0-100.0) fL MCH (25.0-35.0) pg MCHC (31.0-37.0) g/dL RDW (11.5-15.5) % Plt Count (150-450) k/uL MPV Neutrophils % % Lymphocytes % % Monocytes % % Eosinophils % % Basophils % % Neutrophils # (1.3-7.7) k/uL Lymphocytes # (1.0-4.8) k/uL Monocytes # (0-1.0) k/uL Eosinophils # (0-0.7) k/uL Basophils # (0-0.2) k/uL Hypochromasia Poikilocytosis Anisocytosis APTT (22.0-30.0) sec Sodium (137-145) mmol/L Potassium (3.5-5.1) mmol/L Chloride (98-107) mmol/L Carbon Dioxide (22-30) mmol/L Anion Gap mmol/L BUN (9-20) mg/dL Creatinine (0.66-1.25) mg/dL Est GFR (CKD-EPI)AfAm (>60 ml/min/1.73 sqM) Est GFR (CKD-EPI)NonAf (>60 ml/min/1.73 sqM) Glucose (74-99) mg/dL Calcium (8.4-10.2) mg/dL Total Bilirubin (0.2-1.3) mg/dL AST (17-59) U/L ALT (4-49) U/L Alkaline Phosphatase (38-126) U/L Troponin I <0.012 (0.000-0.034) ng/mL Total Protein (6.3-8.2) g/dL Albumin (3.5-5.0) g/dL Lipase (23-300) U/L Blood Type O Positive Blood Type Recheck O Pos Bld Type Recheck Status No Antibody Screen NEGATIVE Crossmatch See Detail Spec Expiration Date 03/11/20212318 - EKG Data EKG Comments: Ventricular rate 83 bpm, IA interval 202 ms, QRS duration 114 ms, QTC 505 ms, PRT axes 0/-12/5. Sinus rhythm with frequent premature ventricular complexes, prolonged QT, abn ormal ECG. (Yosef Flores) - Radiology Data Chest x-ray: No acute cardiopulmonary process. (Yosef Flores) Critical Care Time Critical Care Time: Yes <Diandra Carlton - Last Filed: 03/09/21 01:21> Critical Care Time: 32 minutes for transfusion of blood products (Diandra Carlton) Disposition Is patient prescribed a controlled substance at d/c from ED?: No Time of Disposition: 16:25 <Yosef Flores - Last Filed: 03/08/21 16:23> <Diandra Carlton - Last Filed: 03/09/21 01:21> Clinical Impression: Low hemoglobin Disposition: ADMITTED IP TO THIS HOSP Condition: Stable
--- NOTE | 2021-03-08 15:55 | XR ---
EXAMINATION TYPE: XR chest 2V DATE OF EXAM: 03/08/2021 COMPARISON: 05/24/2018 HISTORY: Fatigue TECHNIQUE: Frontal and lateral views of the chest are obtained. FINDINGS: There is no focal air space opacity, pleural effusion, or pneumothorax seen. The cardiac silhouette is enlarged with postoperative changes, unchanged. IMPRESSION: No acute cardiopulmonary process.
[2021-03-08] MEDS ORDERED: NALOXONE 0.4 MG/ML 1 ML VIAL IV PRN (16:24)
[2021-03-08] MEDS ORDERED: ACETAMINOPHEN TAB 325 MG TAB PO PRN (23:35)
[2021-03-08] MEDS: CALCIUM CARBONATE 500 MG CHEWABLE PO SCH (23:51)
[2021-03-08] MEDS: SPIRONOLACTONE 25 MG TAB PO SCH (23:52)
[2021-03-08] MEDS: ATORVASTATIN 40 MG TAB PO SCH (23:52)
[2021-03-08] MEDS: METOPROLOL SUCCINATE (ER) 25 MG TAB.ER.24H PO SCH (23:52)
[2021-03-08] MEDS: SODIUM CHLORIDE 0.9% 1,000 ML IV SCH (23:54)
[2021-03-08] MEDS: DOXAZOSIN 2 MG TAB PO SCH (23:54)
[2021-03-09] MEDS: SODIUM CHLORIDE 0.9% 1,000 ML IV SCH ×2 (06:40→20:43)
[2021-03-09] MEDS: LEVOTHYROXINE 100 MCG TAB PO SCH (06:40)
[2021-03-09 08:00] LABS: Anisocytosis Slight; Basophils % (A) 0 %; Eosinophils % (A) 0 %; HGB 7.5 gm/dL (13.0-17.5); Hypochromasia Marked; Lymphocytes # (A) 0.9 k/uL (1.0-4.8); Lymphocytes % (A) 10 %; MCHC 26.6 g/dL (31.0-37.0); MCV 86.4 fL (80.0-100.0); Mean Platelet Volume 7.5; Monocytes # (A) 0.5 k/uL (0-1.0); Monocytes % (A) 5 %; Neutrophils # (A) 7.4 k/uL (1.3-7.7); Neutrophils % (A) 82 %; Platelet Count 287 k/uL (150-450); Poikilocytosis Moderate; RBC 3.24 m/uL (4.30-5.90); RDW 18.6 % (11.5-15.5)
--- NOTE | 2021-03-09 08:20 | P.HPIM ---
History of Present Illness H&P Date: 03/09/21 Chief Complaint: Poor stamina anemia This is a history and physical on a 75-year-old white male with known history of cardiac myopathy who was seen in for a checkup 2 days ago and found have significant anemia. Hemoglobin was 7.0 from our laboratory which was down from 11.7 about 6 months ago. The patient states hemorrhoidal GI bleeding but no element of overt bright red blood per rectum or melanotic stool. No hemoptysis or hematemesis otherwise stated. No previous history of GI bleeding. The patient was pale-appearing during my office visit was prompted to order screening laboratories. The patient and then admitted for appropriate transfusion given the blood loss anemia. GIs now consulted for appropriate evaluation of the possible GI bleed. The patient feels a little bit better since having 1 unit PRBC. Review of Systems Constitutional: Reports fatigue, Denies chills, Denies fever Eyes: denies blurred vision, denies pain Ears, nose, mouth and throat: Denies headache, Denies sore throat Cardiovascular: Denies chest pain, Denies shortness of breath Respiratory: Denies cough Gastrointestinal: Reports as per HPI Musculoskeletal: Denies myalgias Integumentary: Denies pruritus, Denies rash Neurological: Denies numbness, Denies weakness Psychiatric: Denies anxiety, Denies depression Past Medical History Past Medical History: Atrial Fibrillation, Coronary Artery Disease (CAD), Cancer, Heart Failure, GERD/Reflux, Hyperlipidemia, Hypertension, Osteoarthritis (OA), Pneumonia, Sleep Apnea/CPAP/BIPAP Additional Past Medical History / Comment(s): See Dr Martel H&P, uses CPAP, hx. gout, hx. skin cancer, left sided thoracentesis 1.5 L off in December 2015, LT ETE DETATCHED RETINA(HAD SX 02/07/16) History of Any Multi-Drug Resistant Organisms: None Reported Past Surgical History: Coronary Bypass/CABG, Joint Replacement Additional Past Surgical History / Comment(s): both knees replaced, retinal repair left eye, cardioversion,DIPIKA Past Anesthesia/Blood Transfusion Reactions: No Reported Reaction Past Psychological History: No Psychological Hx Reported Smoking Status: Former smoker Past Alcohol Use History: None Reported Additional Past Alcohol Use History / Comment(s): started smoking 1961 and quit 1965. less than 1ppd Past Drug Use History: None Reported - Past Family History Mother History Unknown: Yes Family Medical History: No Reported History Father History Unknown: Yes Family Medical History: Myocardial Infarction ([place]) Medications and Allergies Home Medications Medication Instructions Recorded Confirmed Type Omeprazole 20 mg PO DAILY 11/16/15 03/08/21 History allopurinoL [Zyloprim] 300 mg PO DAILY 11/16/15 03/08/21 History Atorvastatin [Lipitor] 40 mg PO HS #30 tab 12/14/15 03/08/21 Rx Doxazosin Mesylate [Cardura Xl] 4 mg PO DAILY 01/15/16 03/08/21 History Rivaroxaban [Xarelto] 20 mg PO HS 01/15/16 03/08/21 History Potassium Chloride [Klor-Con 10] 10 meq PO BID@0900,1500 10/01/18 03/08/21 History Furosemide [Lasix] 40 mg PO BID@0900,1500 03/19/20 03/08/21 History Levothyroxine Sodium [Synthroid] 200 mcg PO SUMOTUWETHSA@0700 03/19/20 03/08/21 History Calcium Carbonate [Tums] 1,000 mg PO BID 02/14/21 03/08/21 History Cholecalciferol (Vitamin D3) 125 mcg PO DAILY 02/14/21 03/08/21 History [Vitamin D3 (5000 Iu)] Magnesium Oxide [Mag-Ox] 400 mg PO DAILY #90 tab 02/18/21 03/08/21 Rx Metoprolol Succinate (ER) [Toprol 25 mg PO DAILY #90 tab.er.24h 02/18/21 Rx XL] Dofetilide [Tikosyn] 125 mcg PO BID@0900,2100 03/08/21 03/08/21 History Spironolactone [Aldactone] 25 mg PO DAILY 03/08/21 03/08/21 History hydrALAZINE HCL [Apresoline] 25 mg PO TID@0900,1500,2100 03/08/21 03/08/21 History predniSONE [Deltasone] 40 mg PO DAILY 03/08/21 03/08/21 History Allergies Allergy/AdvReac Type Severity Reaction Status Date / Time No Known Allergies Allergy Verified 03/08/21 16:40 Physical Exam Vitals: Vital Signs Temp Pulse Pulse Resp BP BP Pulse Ox 03/09/21 04:00 98.0 F 80 18 120/60 98 03/09/21 02:00 18 03/09/21 00:00 97.9 F 91 18 147/69 96 03/08/21 22:16 82 18 131/79 95 03/08/21 18:11 98.0 F 78 18 124/78 03/08/21 18:01 98.4 F 78 18 126/76 03/08/21 17:41 98.5 F 84 18 121/71 03/08/21 17:31 98.6 F 86 18 129/74 03/08/21 17:24 98.5 F 90 18 128/80 03/08/21 13:46 98.8 F 86 18 116/69 97 Intake and Output 03/08/21 03/09/21 03/09/21 22:59 06:59 14:59 Intake Total 276 Balance 276 Intake: Blood Product 276 Rc Pheresis 2 As3 Unit 276 [id number] Other: Voiding Method Toilet # Voids 2 Weight 149.685 kg 153.4 kg - Constitutional General appearance: morbidly obese - EENT Eyes: no abnormal pupil - Neck Neck: no lymphadenopathy - Respiratory Respiratory: bilateral: CTA - Cardiovascular Rhythm: irregularly irregular Heart sounds: normal: S1, S2 - Gastrointestinal General gastrointestinal: soft, no tenderness - Neurologic Neurologic: CNII-XII intact - Psychiatric Psychiatric: A&O x's 3, appropriate affect Results CBC & Chem 7: 03/09/21 06:19 03/08/21 14:19 Labs: Abnormal Lab Results - Last 24 Hours (Table) 03/08/21 03/08/21 03/08/21 Range/Units 14:19 14:19 14:19 RBC 3.34 L (4.30-5.90) m/uL Hgb 7.6 L (13.0-17.5) gm/dL Hct 28.2 L (39.0-53.0) % MCH 22.7 L (25.0-35.0) pg MCHC 26.9 L (31.0-37.0) g/dL RDW 18.6 H (11.5-15.5) % Lymphocytes # 0.5 L (1.0-4.8) k/uL Creatinine 1.40 H (0.66-1.25) mg/dL Glucose 160 H (74-99) mg/dL Albumin 3.3 L (3.5-5.0) g/dL Crossmatch See Detail 03/09/21 Range/Units 06:19 RBC 3.24 L (4.30-5.90) m/uL Hgb 7.5 L (13.0-17.5) gm/dL Hct 28.0 L (39.0-53.0) % MCH 23.0 L (25.0-35.0) pg MCHC 26.6 L (31.0-37.0) g/dL RDW 18.6 H (11.5-15.5) % Lymphocytes # 0.9 L (1.0-4.8) k/uL Creatinine (0.66-1.25) mg/dL Glucose (74-99) mg/dL Albumin (3.5-5.0) g/dL Crossmatch Assessment and Plan (1) Low hemoglobin Current Visit: Yes Status: Acute Code(s): D64.9 - ANEMIA, UNSPECIFIED SNOMED Code(s): 460077351 (2) Atrial fibrillation and flutter Current Visit: No Status: Acute Code(s): I48.91 - UNSPECIFIED ATRIAL FIBRILLATION; I48.92 - UNSPECIFIED ATRIAL FLUTTER SNOMED Code(s): 224972180 (3) COPD (chronic obstructive pulmonary disease) Current Visit: No Status: Acute Code(s): J44.9 - CHRONIC OBSTRUCTIVE PULMONARY DISEASE, UNSPECIFIED SNOMED Code(s): 82770872 (4) HTN (hypertension) Current Visit: No Status: Acute Code(s): I10 - ESSENTIAL (PRIMARY) HYPERTENSION SNOMED Code(s): 94236905 (5) Hyperlipemia Current Visit: No Status: Acute Code(s): E78.5 - HYPERLIPIDEMIA, UNSPECIFIED SNOMED Code(s): 04624657 (6) Obstructive sleep apnea Current Visit: No Status: Acute Code(s): G47.33 - OBSTRUCTIVE SLEEP APNEA (ADULT) (PEDIATRIC) SNOMED Code(s): 16394469 (7) Cardiomyopathy Current Visit: No Status: Chronic Code(s): I42.9 - CARDIOMYOPATHY, UNSPECIFIED SNOMED Code(s): 02403598 (8) Coronary artery disease Current Visit: No Status: Chronic Code(s): I25.10 - ATHSCL HEART DISEASE OF [place] CORONARY ARTERY W/O ANG PCTRS SNOMED Code(s): 79050662 (9) S/P CABG (coronary artery bypass graft) Current Visit: No Status: Chronic Code(s): Z95.1 - PRESENCE OF AORTOCORONARY BYPASS GRAFT SNOMED Code(s): 970862953 Plan: Presumptive GI source for bleeding given the nature of his anemia. GIs consulted. Check CBC in a.m. Status post 1 unit PRBC. Reconcile home medications. Reconcile home medications but hold anticoagulation until evaluation by GI for possible endoscopy procedure. Prognosis is guarded.
[2021-03-09] MEDS: DOFETILIDE 125 MCG CAP PO SCH ×2 (09:00→21:08)
[2021-03-09] MEDS: PANTOPRAZOLE 40 MG TABLET PO SCH (09:15)
[2021-03-09] MEDS: CALCIUM CARBONATE 500 MG CHEWABLE PO SCH ×2 (09:15→21:08)
[2021-03-09] MEDS: SPIRONOLACTONE 25 MG TAB PO SCH (09:15)
[2021-03-09] MEDS: allopurinoL 300 MG TAB PO SCH (09:15)
[2021-03-09] MEDS: METOPROLOL SUCCINATE (ER) 25 MG TAB.ER.24H PO SCH (09:15)
[2021-03-09] MEDS: FUROSEMIDE 40 MG TAB PO SCH ×2 (09:15→16:39)
[2021-03-09] MEDS: CHOLECALCIFEROL 25 MCG (1000 IU) TABLET PO SCH (09:15)
[2021-03-09] MEDS: POTASSIUM CHLORIDE ER 10 MEQ TAB.ER.PRT PO SCH ×2 (09:15→16:41)
[2021-03-09] MEDS: hydrALAZINE HCL 25 MG TAB PO SCH ×3 (09:15→21:08)
[2021-03-09] MEDS: DOXAZOSIN 2 MG TAB PO SCH ×2 (09:16→21:08)
[2021-03-09] MEDS: MAGNESIUM OXIDE 400 MG TAB PO SCH (09:16)
[2021-03-09 11:27] VITALS: BMI 44.6
--- NOTE | 2021-03-09 15:02 | P.CONS ---
History of Present Illness - Reason for Consult Consult date: 03/09/21 Anemia, possible GI bleed Requesting physician: Chris Olivera - Chief Complaint Abnormal labs - History of Present Illness A 75-year-old patient who was sent in from his primary care physician for outpatient labs showing a low hemoglobin of around 7. He was sent into the em ergency department his initial hemoglobin was 7.6. He was transfused 1 unit of PRBC transfusion. He has a past medical history of atrial fibrillation on Xarelto, coronary artery disease, skin cancer, heart failure, GERD, hyperlipidemia, hypertension, obstructive sleep apnea, and CABG. The patient states he has not noticed any black stools, no abdominal pain, no history of peptic ulcer disease, no nausea or vomiting. He does take Aleve almost every day. He has no previous history of upper endoscopy or colonoscopy. States he does have some hemorrhoids and will occasionally have some bright red blood per rectum with bowel movement with wiping. Current labs WBC 9, hemoglobin 7.5, hematocrit 28, platelet count 287,000, total bilirubin 0.6, alkaline phosphatase 107, AST 28, ALT 14. Review of Systems REVIEW OF SYSTEMS: CARDIOPULMONARY: No chest pain. Ports shortness of breath. Gastrointestinal: No abdominal pain. No nausea or vomiting. No hematemesis, coffee-ground emesis. No melena. Occasional rectal bleeding with bowel movement, due to hemorrhoids GENITOURINARY: No dysuria or hematuria. MUSCULOSKELETAL: Reports normal range of motion., Joint pain. SKIN: No rashes. No jaundice. ENDOCRINE: No chills, fevers. No excessive weight gain or loss. No polydipsia or polyuria. PSYCHIATRIC: Unremarkable. NEUROLOGY: No change in mental status. Denies dizziness, headache. ENT: Vision unremarkable. CONSTITUTIONAL: No recent weight loss. No fever, chills, night sweats. Past Medical History Past Medical History: Atrial Fibrillation, Coronary Artery Disease (CAD), Cancer, Heart Failure, GERD/Reflux, Hyperlipidemia, Hypertension, Osteoarthritis (OA), Pneumonia, Sleep Apnea/CPAP/BIPAP Additional Past Medical History / Comment(s): See Dr Tahmina Mejia&Bree, uses CPAP, hx. gout, hx. skin cancer, left sided thoracentesis 1.5 L off in December 2015, LT ETE DETATCHED RETINA(HAD SX 02/07/16) History of Any Multi-Drug Resistant Organisms: None Reported Past Surgical History: Coronary Bypass/CABG, Joint Replacement Additional Past Surgical History / Comment(s): both knees replaced, retinal repair left eye, cardioversion,DIPIKA Past Anesthesia/Blood Transfusion Reactions: No Reported Reaction Past Psychological History: No Psychological Hx Reported Smoking Status: Former smoker Past Alcohol Use History: None Reported Additional Past Alcohol Use History / Comment(s): started smoking 1961 and quit 1965. less than 1ppd Past Drug Use History: None Reported - Past Family History Mother History Unknown: Yes Family Medical History: No Reported History Father History Unknown: Yes Family Medical History: Myocardial Infarction (ME) Medications and Allergies Home Medications Medication Instructions Recorded Confirmed Type Omeprazole 20 mg PO DAILY 11/16/15 03/08/21 History allopurinoL [Zyloprim] 300 mg PO DAILY 11/16/15 03/08/21 History Atorvastatin [Lipitor] 40 mg PO HS #30 tab 12/14/15 03/08/21 Rx Doxazosin Mesylate [Cardura Xl] 4 mg PO DAILY 01/15/16 03/08/21 History Rivaroxaban [Xarelto] 20 mg PO HS 01/15/16 03/08/21 History Potassium Chloride [Klor-Con 10] 10 meq PO BID@0900,1500 10/01/18 03/08/21 History Furosemide [Lasix] 40 mg PO BID@0900,1500 03/19/20 03/08/21 History Levothyroxine Sodium [Synthroid] 200 mcg PO SUMOTUWETHSA@0700 03/19/20 03/08/21 History Calcium Carbonate [Tums] 1,000 mg PO BID 02/14/21 03/08/21 History Cholecalciferol (Vitamin D3) 125 mcg PO DAILY 02/14/21 03/08/21 History [Vitamin D3 (5000 Iu)] Magnesium Oxide [Mag-Ox] 400 mg PO DAILY #90 tab 02/18/21 03/08/21 Rx Metoprolol Succinate (ER) [Toprol 25 mg PO DAILY #90 tab.er.24h 02/18/21 03/08/21 Rx XL] Dofetilide [Tikosyn] 125 mcg PO BID@0900,2100 03/08/21 03/08/21 History Spironolactone [Aldactone] 25 mg PO DAILY 03/08/21 03/08/21 History hydrALAZINE HCL [Apresoline] 25 mg PO TID@0900,1500,2100 03/08/21 03/08/21 His tory predniSONE [Deltasone] 40 mg PO DAILY 03/08/21 03/08/21 History Allergies Allergy/AdvReac Type Severity Reaction Status Date / Time No Known Allergies Allergy Verified 03/08/21 16:40 Physical Exam Vitals: Vital Signs Temp Pulse Pulse Resp BP BP Pulse Ox 03/09/21 08:00 58 L 16 130/65 91 L 03/09/21 04:00 98.0 F 80 18 120/60 98 03/09/21 02:00 18 03/09/21 00:00 97.9 F 91 18 147/69 96 03/08/21 22:16 82 18 131/79 95 03/08/21 18:11 98.0 F 78 18 124/78 03/08/21 18:01 98.4 F 78 18 126/76 03/08/21 17:41 98.5 F 84 18 121/71 03/08/21 17:31 98.6 F 86 18 129/74 03/08/21 17:24 98.5 F 90 18 128/80 03/08/21 13:46 98.8 F 86 18 116/69 97 Intake and Output 03/08/21 03/09/21 03/09/21 22:59 06:59 14:59 Intake Total 276 Balance 276 Intake: Blood Product 276 Rc Pheresis 2 As3 Unit 276 [id number] Other: Voiding Method Toilet # Voids 2 Weight 149.685 kg 153.4 kg General appearance: The patient is alert, oriented, appears in no acute distress. Obese. HET: Head is normocephalic and atraumatic. Conjunctiva pink. Sclera anicteric. Neck: Supple without lymphadenopathy. Trachea midline. Heart: S1 S2. Regular rate and rhythm. Lungs: Diminished. Abdomen: Soft, obese, nontender, nondistended with bowel sounds. No guarding or rigidity. Skin: No rashes. No jaundice. Extremities: Normal skin color and turgor. Pedal edema. Neurological: No focal deficits. Alert and oriented 3.. Results CBC & Chem 7: 03/09/21 06:19 03/08/21 14:19 Labs: Abnormal Lab Results - Last 24 Hours (Table) 03/08/21 03/08/21 03/08/21 Range/Units 14:19 14:19 14:19 RBC 3.34 L (4.30-5.90) m/uL Hgb 7.6 L (13.0-17.5) gm/dL Hct 28.2 L (39.0-53.0) % MCH 22.7 L (25.0-35.0) pg MCHC 26.9 L (31.0-37.0) g/dL RDW 18.6 H (11.5-15.5) % Lymphocytes # 0.5 L (1.0-4.8) k/uL Creatinine 1.40 H (0.66-1.25) mg/dL Glucose 160 H (74-99) mg/dL Albumin 3.3 L (3.5-5.0) g/dL Crossmatch See Detail 03/09/21 Range/Units 06:19 RBC 3.24 L (4.30-5.90) m/uL Hgb 7.5 L (13.0-17.5) gm/dL Hct 28.0 L (39.0-53.0) % MCH 23.0 L (25.0-35.0) pg MCHC 26.6 L (31.0-37.0) g/dL RDW 18.6 H (11.5-15.5) % Lymphocytes # 0.9 L (1.0-4.8) k/uL Creatinine (0.66-1.25) mg/dL Glucose (74-99) mg/dL Albumin (3.5-5.0) g/dL Crossmatch Assessment and Plan (1) Anemia Narrative/Plan: 75-year-old male who was sent in from his primary care physician for low hemoglobin presented to the emergency department for further evaluation. His admission hemoglobin was 7.6, he was transfused with 1 unit of PRBC transfusion. He has no reported black tarry stools, abdominal pain, nausea, or vomiting. He denies any history of peptic ulcer disease. He has not had a previous EGD or colonoscopy. He does state he does occasionally gets some bright red blood per rectum with bowel movements when wiping due to hemorrhoids. He also takes Aleve almost every day. He has a past medical history including atrial fibrillation and heart disease, he is on Xarelto. His last dose was yesterday evening. He has had no history of previous GI bleed. No signs or symptoms of GI bleed currently. Possibly etiology for anemia can be of chronic disease, however also need to consider possibility of peptic ulcer disease due to long- term use of NSAIDs, gastritis, esophagitis, AVMs, or other etiology. Patient also has never had a colonoscopy therefore we will also proceed with colonoscopy to rule out any lower GI source. Current Visit: Yes Status: Acute Code(s): D64.9 - ANEMIA, UNSPECIFIED SNOM ED Code(s): 608759657 (2) Atrial fibrillation and flutter Current Visit: No Status: Acute Code(s): I48.91 - UNSPECIFIED ATRIAL FIBRILLATION; I48.92 - UNSPECIFIED ATRIAL FLUTTER SNOMED Code(s): 762672604 (3) COPD (chronic obstructive pulmonary disease) Current Visit: No Status: Acute Code(s): J44.9 - CHRONIC OBSTRUCTIVE PULMONARY DISEASE, UNSPECIFIED SNOMED Code(s): 97242253 (4) HTN (hypertension) Current Visit: No Status: Acute Code(s): I10 - ESSENTIAL (PRIMARY) HYPERTENSION SNOMED Code(s): 91159830 (5) Hyperlipemia Current Visit: No Status: Acute Code(s): E78.5 - HYPERLIPIDEMIA, UNSPECIFIED SNOMED Code(s): 20214064 (6) Obstructive sleep apnea Current Visit: No Status: Acute Code(s): G47.33 - OBSTRUCTIVE SLEEP APNEA (ADULT) (PEDIATRIC) SNOMED Code(s): 77245721 (7) Atrial fibrillation Current Visit: No Status: Chronic Code(s): I48.91 - UNSPECIFIED ATRIAL FIBRI LLATION SNOMED Code(s): 82856397 (8) Coronary artery disease Current Visit: No Status: Chronic Code(s): I25.10 - ATHSCL HEART DISEASE OF [place] CORONARY ARTERY W/O ANG PCTRS SNOMED Code(s): 40283257 Plan: 1. Hold Xarelto 2. Heart healthy diet, clear liquid starting in the morning 3. Anemia workup ordered 4. Protonix 40 mg daily 5. Monitor for signs and symptoms of GI bleed 6. Avoid NSAIDs 7. We'll plan for EGD and colonoscopy on 03/11/2021 8. Monitor CBC Thank you for this consultation, we will continue to follow. Dr. Tang I agree with the dictator's note, documented as a scribe by Brittanie Cochran.
[2021-03-09] MEDS: ATORVASTATIN 40 MG TAB PO SCH (21:08)
[2021-03-10 03:45] LABS: Folate, Serum 8.7 ng/mL
[2021-03-10 03:50] LABS: % Iron Saturation 5.65 (15.00-50.00); Ferritin 8.5 ng/mL (22.0-322.0)
[2021-03-10] MEDS: LEVOTHYROXINE 100 MCG TAB PO SCH (06:38)
[2021-03-10] MEDS: DOFETILIDE 125 MCG CAP PO SCH ×2 (08:27→21:25)
[2021-03-10] MEDS: POTASSIUM CHLORIDE ER 10 MEQ TAB.ER.PRT PO SCH ×2 (08:27→17:05)
[2021-03-10] MEDS: allopurinoL 300 MG TAB PO SCH (08:28)
[2021-03-10] MEDS: CHOLECALCIFEROL 25 MCG (1000 IU) TABLET PO SCH (08:28)
[2021-03-10] MEDS: METOPROLOL SUCCINATE (ER) 25 MG TAB.ER.24H PO SCH (08:28)
[2021-03-10] MEDS: CALCIUM CARBONATE 500 MG CHEWABLE PO SCH ×2 (08:28→21:25)
[2021-03-10] MEDS: SPIRONOLACTONE 25 MG TAB PO SCH (08:28)
[2021-03-10] MEDS: PANTOPRAZOLE 40 MG TABLET PO SCH (08:28)
[2021-03-10] MEDS: hydrALAZINE HCL 25 MG TAB PO SCH ×3 (08:28→21:25)
[2021-03-10] MEDS: DOXAZOSIN 2 MG TAB PO SCH ×2 (08:28→21:25)
[2021-03-10] MEDS: MAGNESIUM OXIDE 400 MG TAB PO SCH (08:28)
[2021-03-10] MEDS: FUROSEMIDE 40 MG TAB PO SCH ×2 (08:29→17:05)
--- NOTE | 2021-03-10 08:37 | P.PN ---
Subjective Principal diagnosis: Anemia presumptive GI bleed This is a history of physical 75-year-old white male with known history of acute anemia. The patient is scheduled for endoscopy tomorrow. The patient feels better no significant pain. No shortness of breath no hemoptysis. No melena or tarry stools. Objective - Vital Signs Vital signs: Vital Signs Temp 97.9 F 03/10/21 04:00 Pulse 72 03/10/21 04:00 Resp 18 03/10/21 04:00 BP 113/57 03/10/21 04:00 Pulse Ox 95 03/10/21 04:00 Intake & Output 03/09/21 03/10/21 03/10/21 18:59 06:59 18:59 Intake Total 600 Balance 600 Weight 153.4 kg Intake: Oral 600 Other: Voiding Method Toilet Toilet # Voids 2 3 - Constitutional General appearance: Present: morbidly obese - EENT Eyes: Absent: abnormal pupil - Neck Neck: Absent: lymphadenopathy - Respiratory Respiratory: bilateral: CTA - Cardiovascular Rhythm: regular Heart sounds: normal: S1, S2 Abnormal Heart Sounds: Absent: S3 Gallop - Gastrointestinal General gastrointestinal: Present: soft. Absent: tenderness - Integumentary Integumentary: Absent: cellulitis - Labs CBC & Chem 7: 03/09/21 06:19 03/08/21 14:19 Labs: Abnormal Lab Results - Last 24 Hours (Table) 03/09/21 Range/Units 06:19 Iron 20 L (65-175) ug/dL % Saturation 5.65 L (15.00-50.00) Ferritin 8.5 L (22.0-322.0) ng/mL Assessment and Plan (1) Low hemoglobin Current Visit: Yes Status: Acute Code(s): D64.9 - ANEMIA, UNSPECIFIED SNOMED Code(s): 124509709 (2) Atrial fibrillation and flutter Current Visit: No Status: Acute Code(s): I48.91 - UNSPECIFIED ATRIAL FIBRILLATION; I48.92 - UNSPECIFIED ATRIAL FLUTTER SNOMED Code(s): 798359002 (3) COPD (chronic obstructive pulmonary disease) Current Visit: No Status: Acute Code(s): J44.9 - CHRONIC OBSTRUCTIVE PULMONARY DISEASE, UNSPECIFIED SNOMED Code(s): 43755850 (4) HTN (hypertension) Current Visit: No Status: Acute Code(s): I10 - ESSENTIAL (PRIMARY) HYPERTENSION SNOMED Code(s): 05569581 (5) Hyperlipemia Current Visit: No Status: Acute Code(s): E78.5 - HYPERLIPIDEMIA, UNSPECIFIED SNOMED Code(s): 81869657 (6) Obstructive sleep apnea Current Visit: No Status: Acute Code(s): G47.33 - OBSTRUCTIVE SLEEP APNEA (ADULT) (PEDIATRIC) SNOMED Code(s): 56690979 (7) Cardiomyopathy Current Visit: No Status: Chronic Code(s): I42.9 - CARDIOMYOPATHY, UNSPECIFIED SNOMED Code(s): 27762699 (8) Coronary artery disease Current Visit: No Status: Chronic Code(s): I25.10 - ATHSCL HEART DISEASE OF [place] CORONARY ARTERY W/O ANG PCTRS SNOMED Code(s): 68283690 (9) S/P CABG (coronary artery bypass graft) Current Visit: No Status: Chronic Code(s): Z95.1 - PRESENCE OF AORTOCORONARY BYPASS GRAFT SNOMED Code(s): 526224967 Plan: Presumptive GI source for bleeding given the nature of his anemia. GIs consulted. Check CBC in a.m. Status post 1 unit PRBC. Await endoscopy in a.m.
[2021-03-10 10:01] LABS: Anisocytosis Slight; HCT 29.9 % (39.0-53.0); HGB 7.9 gm/dL (13.0-17.5); Hypochromasia Marked; MCH 22.7 pg (25.0-35.0); MCHC 26.4 g/dL (31.0-37.0); MCV 85.9 fL (80.0-100.0); Mean Platelet Volume 7.6; Platelet Count 266 k/uL (150-450); Poikilocytosis Moderate; RBC 3.48 m/uL (4.30-5.90); RDW 18.8 % (11.5-15.5); WBC 7.6 k/uL (3.8-10.6)
[2021-03-10 12:21] LABS: Magnesium 1.9 mg/dL (1.6-2.3)
--- NOTE | 2021-03-10 16:01 | P.PN ---
Subjective Progress Note Date: 03/10/21 Principal diagnosis: Anemia Patient was seen and examined sitting up at the bedside. States overall he is feeling well. Denies any abdominal pain, nausea, or vomiting. Denies any melena or rectal bleeding. Hemoglobin stable at 7.9, iron studies consistent with iron deficiency anemia. Plan is for EGD and colonoscopy tomorrow, patient will start his bowel prep this afternoon. Objective - Vital Signs Vital signs: Vital Signs Temp 97.9 F 03/10/21 04:00 Pulse 61 03/10/21 08:00 Resp 16 03/10/21 08:00 BP 134/63 03/10/21 08:00 Pulse Ox 98 03/10/21 08:00 Intake & Output 03/09/21 03/10/21 03/10/21 18:59 06:59 18:59 Intake Total 600 740 Balance 600 740 Weight 153.4 kg Intake: Oral 600 740 Other: Voiding Method Toilet Toilet Toilet # Voids 2 3 - Exam General appearance: The patient is alert, oriented, appears in no acute distress. Obese. HET: Head is normocephalic and atraumatic. Conjunctiva pink. Sclera anicteric. Neck: Supple without lymphadenopathy. Abdomen: Soft, obese, nontender, nondistended with bowel sounds. No guarding or rigidity. Extremities: Normal skin color and turgor. No pedal edema Skin: No rashes, no jaundice Neurological: No focal deficits. Alert and oriented 3. - Labs CBC & Chem 7: 03/10/21 09:20 03/10/21 09:20 Labs: Abnormal Lab Results - Last 24 Hours (Table) 03/09/21 03/10/21 Range/Units 06:19 09:20 RBC 3.48 L (4.30-5.90) m/uL Hgb 7.9 L (13.0-17.5) gm/dL Hct 29.9 L (39.0-53.0) % MCH 22.7 L (25.0-35.0) pg MCHC 26.4 L (31.0-37.0) g/dL RDW 18.8 H (11.5-15.5) % Iron 20 L (65-175) ug/dL % Saturation 5.65 L (15.00-50.00) Ferritin 8.5 L (22.0-322.0) ng/mL Assessment and Plan (1) Anemia Narrative/Plan: 75-year-old male who was sent in from his primary care physician for low hemoglobin presented to the emergency department for further evaluation. His admission hemoglobin was 7.6, he was transfused with 1 unit of PRBC transfusion. He has no reported black tarry stools, abdominal pain, nausea, or vomiting. He denies any history of peptic ulcer disease. He has not had a previous EGD or colonoscopy. He does state he does occasionally gets some bright red blood per rectum with bowel movements when wiping due to hemorrhoids. He also takes Aleve almost every day. He has a past medical history including atrial fibrillation and heart disease, he is on Xarelto. His last dose was yesterday evening. He has had no history of previous GI bleed. No signs or symptoms of GI bleed currently. Possibly etiology for anemia can be of chronic disease, however also need to consider possibility of peptic ulcer disease due to long-term use of NSAIDs, gastritis, esophagitis, AVMs, or other etiology. Patient also has never had a colonoscopy therefore we will also proceed with colonoscopy to rule out any lower GI source. Current Visit: Yes Status: Acute Code(s): D64.9 - ANEMIA, UNSPECIFIED SNOMED Code(s): 012974238 (2) Atrial fibrillation and flutter Current Visit: No Status: Acute Code(s): I48.91 - UNSPECIFIED ATRIAL FIBRILLATION; I48.92 - UNSPECIFIED ATRIAL FLUTTER SNOMED Code(s): 858108093 (3) COPD (chronic obstructive pulmonary disease) Current Visit: No Status: Acute Code(s): J44.9 - CHRONIC OBSTRUCTIVE PULMONARY DISEASE, UNSPECIFIED SNOMED Code(s): 37359408 (4) HTN (hypertension) Current Visit: No Status: Acute Code(s): I10 - ESSENTIAL (PRIMARY) HYPERTENSION SNOMED Code(s): 04701871 (5) Hyperlipemia Current Visit: No Status: Acute Code(s): E78.5 - HYPERLIPIDEMIA, UNSPECIFIED SNOMED Code(s): 98858699 (6) Obstructive sleep apnea Current Visit: No Status: Acute Code(s): G47.33 - OBSTRUCTIVE SLEEP APNEA (ADULT) (PEDIATRIC) SNOMED Code(s): 84568044 (7) Atrial fibrillation Narrative/Plan: Xarelto on hold Current Visit: No Status: Chronic Code(s): I48.91 - UNSPECIFIED ATRIAL FIBRILLATION SNOMED Code(s): 94639563 (8) Coronary artery disease Current Visit: No Status: Chronic Code(s): I25.10 - ATHSCL HEART DISEASE OF [place] CORONARY ARTERY W/O ANG PCTRS SNOMED Code(s): 66908294 Plan: 1. Hold Xarelto 2. Clear liquid diet today, nothing by mouth after midnight 3. Anemia workup ordered 4. Protonix 40 mg daily 5. Monitor for signs and symptoms of GI bleed 6. Avoid NSAIDs 7. We'll plan for EGD and colonoscopy tomorrow 8. Monitor CBC 9. Bowel prep this evening 10. IV iron ordered 3 doses Thank you for this consultation, we will continue to follow. Dr. Tang I agree with the dictator's note, documented as a scribe by Brittanie Cochran.
[2021-03-10] MEDS ORDERED: PEG 3350-NA SULF,BICARB,CL/KCL 4,000 ML BOTTLE PO ONE (17:00)
[2021-03-10] MEDS: SODIUM CHLORIDE 0.9% 1,000 ML IV SCH ×2 (17:05→23:29)
[2021-03-10] MEDS: ATORVASTATIN 40 MG TAB PO SCH (21:25)
[2021-03-11] MEDS: CHOLECALCIFEROL 25 MCG (1000 IU) TABLET PO SCH (08:12)
[2021-03-11] MEDS: MAGNESIUM OXIDE 400 MG TAB PO SCH (08:13)
[2021-03-11] MEDS: DOFETILIDE 125 MCG CAP PO SCH ×2 (08:13→21:26)
[2021-03-11] MEDS: allopurinoL 300 MG TAB PO SCH (08:13)
[2021-03-11] MEDS: FUROSEMIDE 40 MG TAB PO SCH ×2 (08:13→17:04)
[2021-03-11] MEDS: SPIRONOLACTONE 25 MG TAB PO SCH (08:13)
[2021-03-11] MEDS: hydrALAZINE HCL 25 MG TAB PO SCH ×3 (08:13→21:26)
[2021-03-11] MEDS: POTASSIUM CHLORIDE ER 10 MEQ TAB.ER.PRT PO SCH ×2 (08:13→17:04)
[2021-03-11] MEDS: METOPROLOL SUCCINATE (ER) 25 MG TAB.ER.24H PO SCH (08:13)
[2021-03-11] MEDS: CALCIUM CARBONATE 500 MG CHEWABLE PO SCH ×2 (08:13→21:25)
[2021-03-11] MEDS: DOXAZOSIN 2 MG TAB PO SCH ×2 (08:13→21:26)
[2021-03-11] MEDS: PANTOPRAZOLE 40 MG TABLET PO SCH (08:13)
[2021-03-11 08:28] LABS: Anisocytosis Slight; HCT 30.5 % (39.0-53.0); HGB 8.3 gm/dL (13.0-17.5); Hypochromasia Marked; MCH 23.2 pg (25.0-35.0); MCHC 27.2 g/dL (31.0-37.0); MCV 85.2 fL (80.0-100.0); Mean Platelet Volume 8.1; Platelet Count 293 k/uL (150-450); Poikilocytosis Slight; RBC 3.58 m/uL (4.30-5.90); RDW 19.1 % (11.5-15.5); WBC 9.4 k/uL (3.8-10.6)
--- NOTE | 2021-03-11 08:36 | P.PN ---
Subjective Principal diagnosis: Anemia presumptive GI bleed This is a history of physical 75-year-old white male with known history of acute anemia. The patient is scheduled for endoscopy tomorrow. The patient feels better no significant pain. No shortness of breath no hemoptysis. No melena or tarry stools. The patient is now scheduled for EGD/colonoscopy this morning. Objective - Vital Signs Vital signs: Vital Signs Temp 96 F L 03/11/21 08:00 Pulse 64 03/11/21 08:00 Resp 16 03/11/21 08:00 BP 120/64 03/11/21 08:00 Pulse Ox 91 L 03/11/21 08:00 Intake & Output 03/10/21 03/11/21 03/11/21 18:59 06:59 18:59 Intake Total 2180 Balance 2180 Weight 152.1 kg Intake: Intake, IV Titration 900 Amount Sodium Chloride 0.9% 1, 900 000 ml @ 75 mls/hr IV . [id number] JER Rx#:[id number] Oral 1280 Other: Voiding Method Toilet Toilet # Voids 4 - Constitutional General appearance: Present: morbidly obese - EENT Eyes: Absent: abnormal pupil - Respiratory Respiratory: bilateral: CTA - Cardiovascular Rhythm: irregularly irregular Heart sounds: normal: S1, S2 Abnormal Heart Sounds: Absent: S3 Gallop - Gastrointestinal General gastrointestinal: Present: soft. Absent: tenderness - Psychiatric Psychiatric: Present: A&O x's 3, appropriate affect - Labs CBC & Chem 7: 03/11/21 07:52 03/10/21 09:20 Labs: Abnormal Lab Results - Last 24 Hours (Table) 03/10/21 03/10/21 03/11/21 Range/Units 09:20 09:20 07:52 RBC 3.48 L 3.58 L (4.30-5.90) m/uL Hgb 7.9 L 8.3 L (13.0-17.5) gm/dL Hct 29.9 L 30.5 L (39.0-53.0) % MCH 22.7 L 23.2 L (25.0-35.0) pg MCHC 26.4 L 27.2 L (31.0-37.0) g/dL RDW 18.8 H 19.1 H (11.5-15.5) % Sodium 135 L (137-145) mmol/L Assessment and Plan (1) Low hemoglobin Current Visit: Yes Status: Acute Code(s): D64.9 - ANEMIA, UNSPECIFIED SNOMED Code(s): 281056281 (2) Atrial fibrillation and flutter Current Visit: No Status: Acute Code(s): I48.91 - UNSPECIFIED ATRIAL FIBRILLATION; I48.92 - UNSPECIFIED ATRIAL FLUTTER SNOMED Code(s): 834936512 (3) COPD (chronic obstructive pulmonary disease) Current Visit: No Status: Acute Code(s): J44.9 - CHRONIC OBSTRUCTIVE PULMONARY DISEASE, UNSPECIFIED SNOMED Code(s): 31706297 (4) HTN (hypertension) Current Visit: No Status: Acute Code(s): I10 - ESSENTIAL (PRIMARY) HYPERTENSION SNOMED Code(s): 96228665 (5) Hyperlipemia Current Visit: No Status: Acute Code(s): E78.5 - HYPERLIPIDEMIA, UNSPECIFIED SNOMED Code(s): 63919309 (6) Obstructive sleep apnea Current Visit: No Status: Acute Code(s): G47.33 - OBSTRUCTIVE SLEEP APNEA (ADULT) (PEDIATRIC) SNOMED Code(s): 15079812 (7) Cardiomyopathy Current Visit: No Status: Chronic Code(s): I42.9 - CARDIOMYOPATHY, UNSPECIFIED SNOMED Code(s): 90496255 (8) Coronary artery disease Current Visit: No Status: Chronic Code(s): I25.10 - ATHSCL HEART DISEASE OF [place] CORONARY ARTERY W/O ANG PCTRS SNOMED Code(s): 15436184 (9) S/P CABG (coronary artery bypass graft) Current Visit: No Status: Chronic Code(s): Z95.1 - PRESENCE OF AORTOCORONARY BYPASS GRAFT SNOMED Code(s): 616073387 Plan: Presumptive GI source for bleeding given the nature of his anemia. GIs consulted. Check CBC in a.m. Status post 1 unit PRBC. Await endoscopy today Dr. Vogt's group will be covering for the weekend
[2021-03-11 08:43] LABS: Albumin 3.3 g/dL (3.5-5.0); Calcium 8.7 mg/dL (8.4-10.2); Potassium 4.1 mmol/L (3.5-5.1); Total Bilirubin 0.9 mg/dL (0.2-1.3); Total Protein 6.2 g/dL (6.3-8.2)
[2021-03-11] MEDS: SODIUM FERRIC GLUCONAT-SUCROSE 125 MG in SODIUM CHLORIDE 0.9% 100 ML IVPB SCH (09:14)
--- NOTE | 2021-03-11 10:48 | CONS ---
CONSULTATION ATTENDING PHYSICIAN: Dr. Olivera. HISTORY OF PRESENT ILLNESS: Mr. White 75-year-old male with a known history of coronary artery disease status post coronary artery bypass grafting in 2016, history of atrial fibrillation with recurrent atrial fibrillation, had multiple episodes of progressive dyspnea and subsequently underwent ablation and cardioversion. He most recently received Tikosyn. He presented to the hospital with symptoms of progressive dyspnea and fatigue and was noted to be significantly anemic. He is scheduled to undergo endoscopy today. He denies any chest pain, his breathing is better after transfusion. He has some peripheral edema. He has no dizziness or palpitation. On the monitor, he is in sinus mechanism. His cardiac status is remarkable for the fact that he underwent coronary artery bypass grafting in 2016 with a ASHTON to LAD, saphenous vein graft to the ramus intermedius. He had exclusion of the left atrial appendage at that time. His ejection fraction in the past was mildly impaired with ejection fraction around 45%. The patient denies any clear change in the color of his stools. He denies any palpitation. He denies any clear PND or orthopnea. MEDICATIONS: Medication at home include: Aldactone 25 mg daily, omeprazole, metoprolol succinate 25 mg daily, furosemide 40 mg twice a day, Tikosyn 125 mg twice a day, Cardura 40 mg daily, Lipitor 40 mg daily, Xarelto 20 mg daily, hydralazine 25 mg 3 times a day, levothyroxine, and vitamin D. His coronary risk factors are remarkable for the history of hypertension, hyperlipidemia. He is nondiabetic. REVIEW OF SYSTEMS: RESPIRATORY system: He had dyspnea on exertion. No recent wheezing, cough. GI system: He has the GI bleeding but did not notice any change in the color of his stool. system: No dysuria or hematuria. NERVOUS SYSTEM: No history of stroke or seizure. PHYSICAL EXAMINATION: 75-year-old male, alert, oriented, in no apparent distress. Obese. Blood pressure 120/60 with a heart rate in the 60s. HEAD: Normocephalic. Eyes sclerae anicteric. NECK: Good upstroke. No bruit. No jugular venous distention. LUNGS: Clear to auscultation. HEART: Regular rate and rhythm. S1, S2. No S3 with systolic murmur at the base. Ejection type. No diastolic murmur. ABDOMEN: Soft, obese, nontender. Positive bowel sounds. No megaly. EXTREMITIES: +1 edema. LAB DATA: Lab data revealed a hemoglobin on admission 7.6 up to 8.3. BUN and creatinine of 18 and 1.2. His MCV was 85. His troponin less than 0.012. His EKG on admission showed sinus mechanism, rate of 83 [address] nonspecific [address]-T wave changes. IMPRESSION: 1. Progressive dyspnea with anemia related to gastrointestinal bleeding. Workup in progress. 2. History of atrial fibrillation. Maintaining sinus mechanism with prior ablation and chemical cardioversion. 3. Status post coronary artery bypass grafting. 4. Hypertension. 5. Hyperlipidemia. 6. Dyspnea on exertion. RECOMMENDATIONS: From the cardiac standpoint, we will continue with the dofetilide as present. We will continue holding the anticoagulation pending his endoscopy and depending on that, further recommendations will be made. I will check his magnesium as well as repeat his EKG to look at the QT intervals. Depending on his progress, further recommendations will be made. Thank you for this consult. We will follow with you. BEN / IJN: [id number] /
[2021-03-11] MEDS ORDERED: LIDOCAINE 1% INJ 10MG/ML (20 ML MDV) ONE (13:11)
[2021-03-11] MEDS ORDERED: PROPOFOL 10 MG/ML 20 ML VIAL IV ONE (13:11)
[2021-03-11] MEDS ORDERED: IV FLUID CONTINUATION 1,000 ML IV ONE ×2 (13:11)
--- NOTE | 2021-03-11 13:44 | P.PCN ---
Date of Procedure: 03/11/21 Procedure(s) Performed: Brief history: Patient is a pleasant 75-year-old white male admitted hospital with symptomatic anemia and hemoglobin of 7 requiring 2 L of PRBC transfusion. No active GI bleed. He scheduled for an upper endoscopy as well as colonoscopy as a part of evaluation of anemia. Patient has history of A. fib and has currently on Xarelto which is on hold for the last 2 days Procedure performed: Esophagogastroduodenoscopy with argon plasma coagulation Colonoscopy with snare polypectomy Preoperative diagnosis: Severe symptomatic anemia Anesthesia: MAC Procedure: After informed consent was obtained from the patient was brought into the endoscopy unit and IV sedation was administered by anesthesia under continuous monitoring. Initially upper endoscopy was done. The Olympus GF 160 video endoscope was inserted inserted into the mouth and esophagus intubated without any difficulty and was gradually advanced into the stomach and duodenum and carefully examined. The bulb and second part of the duodenum appeared normal. The scope was then withdrawn into the stomach adequately insufflated with air and upon careful examination the antrum had scattered gastric antral vascular ectasia with no active bleeding and argon plasma coagulation was performed. The body, cardia and fundus appeared normal. The scope was then withdrawn into the esophagus. The GE junction was located at 40 cm to the incisors. It appeared regular with no erythema erosions or ulcerations. Rest of the esophagus appeared normal. Patient tolerated the procedure well. At this time the patient continued to remain sedation. Initial digital rectal examination was normal. Olympus CF 160 video colonoscope was then inserted into the rectum and gradually advanced to the cecum without any difficulty. Careful examination was performed as the scope was gradually being withdrawn. The prep was excellent. The cecum, ascending colon, transverse colon appeared normal. The transverse colon there was a 5 mm polyp that was moved by snare polypectomy. In the descending colon there was another 5 limited flat polyp removed by snare polypectomy. Rest of the, descending colon, sigmoid colon and rectum appeared normal. Scattered left sided diverticulosis seen. Retroflexion was performed in the rectum and no lesions were noted. Patient tolerated the procedure well. Impression: 1. Upper endoscopy revealed mild gastric antral vascular ectasia with no active bleeding status post argon plasma coagulation as described above 2. Colonoscopy revealed 5 mm transverse colon polyp and 5 mm descending colon polyp status post polypectomy and scattered sigmoid diverticulosis Recommendations: Findings of this examination were discussed with the patient. He was advised to follow with the biopsy results. Diet will be advanced as tolerated. She'll ultimately be resumed tomorrow .
[2021-03-11] MEDS: SODIUM CHLORIDE 0.9% 1,000 ML IV SCH (17:33)
[2021-03-11] MEDS: ATORVASTATIN 40 MG TAB PO SCH (21:26)
[2021-03-12 04:43] VITALS: RESP 18
[2021-03-12] MEDS: SODIUM CHLORIDE 0.9% 1,000 ML IV SCH (06:23)
[2021-03-12] MEDS: LEVOTHYROXINE 100 MCG TAB PO SCH (06:27)
[2021-03-12] MEDS: allopurinoL 300 MG TAB PO SCH (09:34)
[2021-03-12] MEDS: CALCIUM CARBONATE 500 MG CHEWABLE PO SCH (09:34)
[2021-03-12] MEDS: hydrALAZINE HCL 25 MG TAB PO SCH (09:35)
[2021-03-12] MEDS: METOPROLOL SUCCINATE (ER) 25 MG TAB.ER.24H PO SCH (09:35)
[2021-03-12] MEDS: FUROSEMIDE 40 MG TAB PO SCH (09:35)
[2021-03-12] MEDS: POTASSIUM CHLORIDE ER 10 MEQ TAB.ER.PRT PO SCH (09:35)
[2021-03-12] MEDS: PANTOPRAZOLE 40 MG TABLET PO SCH (09:36)
[2021-03-12] MEDS: SPIRONOLACTONE 25 MG TAB PO SCH (09:36)
[2021-03-12] MEDS: DOXAZOSIN 2 MG TAB PO SCH (09:36)
[2021-03-12] MEDS: CHOLECALCIFEROL 25 MCG (1000 IU) TABLET PO SCH (09:36)
[2021-03-12] MEDS: SODIUM FERRIC GLUCONAT-SUCROSE 125 MG in SODIUM CHLORIDE 0.9% 100 ML IVPB SCH (09:36)
[2021-03-12] MEDS: MAGNESIUM OXIDE 400 MG TAB PO SCH (09:36)
[2021-03-12] MEDS: DOFETILIDE 125 MCG CAP PO SCH (09:36)
--- NOTE | 2021-03-12 09:53 | P.DS ---
Providers Date of admission: 03/08/21 17:12 Attending physician: Chris Olivera Consults: 03/08/21 16:24 Consult Physician Stat Consulting Provider: Curtis Tang Consult Reason/Comments: gi bleed Do you want consulting provider notified?: Yes 03/10/21 13:18 Consult Physician Stat Consulting Provider: Too Martel Consult Reason/Comments: ectopy on tikosyn Do you want consulting provider notified?: Yes Primary care physician: Chris Olivera Hospital Course: 75-year-old male was admitted for the GI bleed presently doesn't have any dark stools or blood in the stools. Patient underwent the upper GI endoscopy which showed arterial venous malformations for which patient underwent argon plasma coagulation. Patient is clinically doing well at this time was cleared for discharge from a gastric probably perspective patient will be resumed on Xarelto as per gastroenterology. PHYSICAL EXAMINATION: GENERAL: The patient is alert and oriented x3, not in any acute distress. Well developed, well nourished. Obese HEENT: Pupils are round and equally reacting to light. EOMI. No scleral icterus. No conjunctival pallor. Normocephalic, atraumatic. No pharyngeal erythema. No thyromegaly. CARDIOVASCULAR: S1 and S2 present. No murmurs, rubs, or gallops. PULMONARY: Chest is clear to auscultation, no wheezing or crackles. ABDOMEN: Soft, nontender, nondistended, normoactive bowel sounds. No palpable organomegaly. MUSCULOSKELETAL: No joint swelling or deformity. EXTREMITIES: No cyanosis, clubbing, 2+ nonpitting pedal edema NEUROLOGICAL: Gross neurological examination did not reveal any focal deficits. SKIN: No rashes. 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 fib patient is on anti-correlation as mentioned above which is being resumed -Congestive heart failure chronic systolic dysfunction with EF of around 45% cardiology evaluated the patient except for some pedal edema and no other significant heart failure symptoms. Patient will be discharged on home regimen for this Patient Condition at Discharge: Stable Plan - Discharge Summary Discharge Rx Participant: No New Discharge Prescriptions: New Ferrous Sulfate [Feosol] 325 mg PO BID #60 tab Continue Omeprazole 20 mg PO DAILY allopurinoL [Zyloprim] 300 mg PO DAILY Atorvastatin [Lipitor] 40 mg PO HS #30 tab Doxazosin Mesylate [Cardura Xl] 4 mg PO DAILY Rivaroxaban [Xarelto] 20 mg PO HS Potassium Chloride [Klor-Con 10] 10 meq PO BID@0900,1500 Furosemide [Lasix] 40 mg PO BID@0900,1500 Levothyroxine Sodium [Synthroid] 200 mcg PO SUMOTUWETHSA@0700 Cholecalciferol (Vitamin D3) [Vitamin D3 (5000 Iu)] 125 mcg PO DAILY Calcium Carbonate [Tums] 1,000 mg PO BID Magnesium Oxide [Mag-Ox] 400 mg PO DAILY #90 tab Spironolactone [Aldactone] 25 mg PO DAILY predniSONE [Deltasone] 40 mg PO DAILY Metoprolol Succinate (ER) [Toprol XL] 25 mg PO DAILY #90 tab.er.24h Dofetilide [Tikosyn] 125 mcg PO BID@0900,2100 Discontinued hydrALAZINE HCL [Apresoline] 25 mg PO TID@0900,1500,2100 Discharge Medication List Omeprazole 20 mg PO DAILY 11/16/15 [History] allopurinoL [Zyloprim] 300 mg PO DAILY 11/16/15 [History] Atorvastatin [Lipitor] 40 mg PO HS #30 tab 12/14/15 [Rx] Doxazosin Mesylate [Cardura Xl] 4 mg PO DAILY 01/15/16 [History] Rivaroxaban [Xarelto] 20 mg PO HS 01/15/16 [History] Potassium Chloride [Klor-Con 10] 10 meq PO BID@0900,1500 10/01/18 [History] Furosemide [Lasix] 40 mg PO BID@0900,1500 03/19/20 [History] Levothyroxine Sodium [Synthroid] 200 mcg PO SUMOTUWETHSA@0700 03/19/20 [History] Calcium Carbonate [Tums] 1,000 mg PO BID 02/14/21 [History] Cholecalciferol (Vitamin D3) [Vitamin D3 (5000 Iu)] 125 mcg PO DAILY 02/14/21 [History] Magnesium Oxide [Mag-Ox] 400 mg PO DAILY #90 tab 02/18/21 [Rx] Metoprolol Succinate (ER) [Toprol XL] 25 mg PO DAILY #90 tab.er.24h 02/18/21 [Rx] Dofetilide [Tikosyn] 125 mcg PO BID@0900,2100 03/08/21 [History] Spironolactone [Aldactone] 25 mg PO DAILY 03/08/21 [History] predniSONE [Deltasone] 40 mg PO DAILY 03/08/21 [History] Ferrous Sulfate [Feosol] 325 mg PO BID #60 tab 03/12/21 [Rx] Follow up Appointment(s)/Referral(s): Chris Olivera MD [Primary Care Provider] - 3 Days Cass Shepard MD [STAFF PHYSICIAN] - 1 Week Discharge Disposition: HOME SELF-CARE
[2021-03-12 10:26] VITALS: BP 149/67; PULSE 107; TEMP 97.6
[2021-03-12 13:03] LABS: Calcium 8.9 mg/dL (8.4-10.2); Potassium 3.9 mmol/L (3.5-5.1)
--- NOTE | 2021-03-12 14:44 | P.PN ---
Subjective Progress Note Date: 03/12/21 This a pleasant 75-year-old gentleman with a known history of CAD status post coronary artery bypass grafting in 2016, atrial fibrillation with recurrent A. fib, status post cardioversion, ablation and recently Tikosyn loading. He presented to hospital with symptoms of progressive dyspnea and fatigue and was found to be significantly anemic. He underwent endoscopy yesterday which revealed mild gastric antral vascular ectasia with no active bleeding status post argon plasma coagulation and 5 mm transverse colon polyp and 5 mm ascending colon polyp status post polypectomy. He is been cleared to resume anticoagulation today. Hemoglobin is stable. Most recent 8.3. Labs/potassium 3.9, magnesium 2.1, BUN 17 and creatinine 1.31. Upon examination patient is sitting up at site of the bed awaiting discharge. He is overall feeling fairly well. He has a follow-up appointment scheduled on March 31 in the office with Dr. Page. We will keep that appointment. Objective - Vital Signs Vital signs: Vital Signs Temp 97.6 F 03/12/21 08:00 Pulse 107 H 03/12/21 08:00 Resp 18 03/12/21 08:00 BP 149/67 03/12/21 08:00 Pulse Ox 96 03/12/21 08:00 Intake & Output 03/11/21 03/12/21 03/12/21 18:59 06:59 18:59 Intake Total 860 240 Output Total 800 Balance 60 240 Weight 150.8 kg Intake: IV 500 Oral 360 240 Output: Urine 800 Other: Voiding Method Toilet Toilet # Voids 1 - Exam PHYSICAL EXAMINATION: HEENT: Head is atraumatic, normocephalic. Pupils equal, round. Neck is supple. There is no elevated jugular venous pressure. HEART EXAMINATION: Heart sounds regular, S1 and S2 with a systolic murmur at the base, extrasystole noted. CHEST EXAMINATION: Lungs are clear to auscultation and precussion. No chest wall tenderness is noted on palpation or with deep breathing. ABDOMEN: Soft, nontender. Bowel sounds are heard. No organomegaly noted. EXTREMITIES: 2+ peripheral pulses with evidence of 1+ peripheral edema and no calf tenderness noted. NEUROLOGIC patient is awake, alert and oriented x3. . 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 Medications were reviewed and we will continue the same. He will resume anticoagulation this evening. Follow-up in the office as previously scheduled on March 31. [employer] note has been reviewed, I agree with a documented findings and plan of care. Patient was seen and examined.
== END 2021-03-12 13:25 | disposition home or self-care (01) | DRG 378 ==
LOC: EC 13:28 → 3SCARD 17:12
PROVIDERS: ADMIT Family Medicine; ATTEND Family Medicine
PROC: 0DBM8ZZ Excision of Descending Colon, Via Natural or Artificial Opening Endoscopic (ICD-10-PCS; 2021-03-11)
PROC: 30233N1 Transfusion of Nonautologous Red Blood Cells into Peripheral Vein, Percutaneous Approach (ICD-10-PCS; 2021-03-11)
PROC: 0W3P8ZZ Control Bleeding in Gastrointestinal Tract, Via Natural or Artificial Opening Endoscopic (ICD-10-PCS; principal; 2021-03-11 13:25)
PROC: 0DBL8ZZ Excision of Transverse Colon, Via Natural or Artificial Opening Endoscopic (ICD-10-PCS; 2021-03-11 13:25)
DX: K31.811 Angiodysplasia of stomach and duodenum with bleeding (principal); I48.92 Unspecified atrial flutter; I42.9 Cardiomyopathy, unspecified; I50.22 Chronic systolic (congestive) heart failure; Z68.41 Body mass index [BMI] 40.0-44.9, adult; Q27.33 Arteriovenous malformation of digestive system vessel; K62.5 Hemorrhage of anus and rectum; D50.0 Iron deficiency anemia secondary to blood loss (chronic); Z79.890 Hormone replacement therapy; Z87.891 Personal history of nicotine dependence; Z82.49 Family history of ischemic heart disease and other diseases of the circulatory system; E78.5 Hyperlipidemia, unspecified; G47.33 Obstructive sleep apnea (adult) (pediatric); I25.10 Atherosclerotic heart disease of native coronary artery without angina pectoris; Z95.1 Presence of aortocoronary bypass graft; I48.91 Unspecified atrial fibrillation; J44.9 Chronic obstructive pulmonary disease, unspecified; I11.0 Hypertensive heart disease with heart failure; Z79.01 Long term (current) use of anticoagulants; Z85.828 Personal history of other malignant neoplasm of skin; K57.30 Diverticulosis of large intestine without perforation or abscess without bleeding; E66.3 Overweight; K64.9 Unspecified hemorrhoids; K63.5 Polyp of colon; I50.9 Heart failure, unspecified; Z79.899 Other long term (current) drug therapy
CPT/HCPCS: 36415; 43255; 45385; 71046; 80048; 80051; 80053; 82607; 82728; 82746; 83540; 83550; 83690; 83735; 84484; 85025; 85027; 85730; 86850; 86900; 86901; 86920; 88305; 93005; 94660; 99291

== ENCOUNTER 2022-03-10 14:29 | Observation (INO) | payer MEDICARE ==
--- NOTE | 2022-03-10 14:55 | ED ---
General Adult HPI - General Chief complaint: Chest Pain Stated complaint: Irregular EKG-Sent by PCP Time Seen by Provider: 03/10/22 14:35 Source: patient, RN notes reviewed Mode of arrival: ambulatory Limitations: no limitations - History of Present Illness Initial comments: This a 76-year-old male presents emergency Department from PCPs office chief com plaint of abnormal EKG. Patient states that he's felt short of breath, coughing last 24 hours and felt some palpitations. Patient states he has a history of atrial fibrillation on Tikosyn and Xarelto along with metoprolol. Patient states that he went to Dr. Oilvera's office an EKG showing a regular rhythm. Patient states he does not have any chest pressure at this time. He doesn't that he had ablations by Dr. Martel in December of this year. Patient denies any leg pain Usual. - Related Data Home Medications Medication Instructions Recorded Confirmed Omeprazole 20 mg PO DAILY 11/16/15 01/05/22 allopurinoL [Zyloprim] 300 mg PO DAILY 11/16/15 01/05/22 Doxazosin Mesylate [Cardura Xl] 4 mg PO DAILY 01/15/16 01/05/22 Rivaroxaban [Xarelto] 20 mg PO HS 01/15/16 01/05/22 Furosemide [Lasix] 80 mg PO QAM 03/19/20 01/05/22 Levothyroxine Sodium [Synthroid] 200 mcg PO SUMOTUWETHSA 03/19/20 01/05/22 Calcium Carbonate [Tums] 1,000 mg PO BID 02/14/21 01/05/22 Cholecalciferol (Vitamin D3) 125 mcg PO DAILY 02/14/21 01/05/22 [Vitamin D3 (5000 Iu)] Dofetilide [Tikosyn] 125 mcg PO Q12H 03/08/21 01/05/22 Spironolactone [Aldactone] 25 mg PO DAILY 03/08/21 01/05/22 Azo (Unknown Dose) 2 tab PO DAILY 01/03/22 01/05/22 Cyanocobalamin [Vitamin B-12] 500 mcg PO DAILY 01/03/22 01/05/22 Ferrous Sulfate [Feosol] 325 mg PO DAILY 01/03/22 01/05/22 Furosemide [Lasix] 40 mg PO 1500 01/03/22 01/05/22 Magnesium Chloride [Slow-Mag] 128 mg PO DAILY 01/03/22 01/05/22 Potassium Chloride [K-Tab ER] 20 meq PO BID 01/03/22 01/05/22 hydrALAZINE HCL 25 mg PO TID 01/03/22 01/05/22 Previous Rx's Medication Instructions Recorded Atorvastatin [Lipitor] 40 mg PO HS #30 tab 12/14/15 Metoprolol Succinate (ER) [Toprol 25 mg PO DAILY #90 tab.er.24h 02/18/21 XL] Allergies Allergy/AdvReac Type Severity Reaction Status Date / Time No Known Allergies Allergy Verified 03/10/22 14:33 Review of Systems ROS Statement: Those systems with pertinent positive or pertinent negative responses have been documented in the HPI. ROS Other: All systems not noted in ROS Statement are negative. Past Medical History Past Medical History: Atrial Fibrillation, Coronary Artery Disease (CAD), Cancer, Heart Failure, GERD/Reflux, Hyperlipidemia, Hypertension, Osteoarthritis (OA), Pneumonia, Renal Disease, Sleep Apnea/CPAP/BIPAP Additional Past Medical History / Comment(s): See Dr Martel's H&P. CPAP use. Hx Gout. Hx skin cancer. Hx left eye detached retina. Hx kidney failure 2 yrs ago. History of Any Multi-Drug Resistant Organisms: None Reported Past Surgical History: Coronary Bypass/CABG, Joint Replacement Additional Past Surgical History / Comment(s): Bilateral knee replacements, retinal repair left eye, cardioversion, DIPIKA, CABG 2015, thyroidectomy, left thoracentesis. Past Anesthesia/Blood Transfusion Reactions: No Reported Reaction Past Psychological History: No Psychological Hx Reported Smoking Status: Former smoker Past Alcohol Use History: None Reported Past Drug Use History: None Reported - Past Family History Mother History Unknown: Yes Family Medical History: No Reported History Father History Unknown: Yes Family Medical History: Myocardial Infarction (MA) General Exam Limitations: no limitations General appearance: alert, in no apparent distress Head exam: Present: atraumatic, normocephalic, normal inspection Eye exam: Present: normal appearance, PERRL, EOMI. Absent: scleral icterus, conjunctival injection, periorbital swelling ENT exam: Present: normal exam, normal oropharynx, mucous membranes moist Neck exam: Present: normal inspection, full ROM. Absent: tenderness, meningismus, lymphadenopathy Respiratory exam: Present: normal lung sounds bilaterally. Absent: respiratory distress, wheezes, rales, rhonchi, stridor Cardiovascular Exam: Present: tachycardia, irregular rhythm, normal heart sounds. Absent: regular rate, normal rhythm, systolic murmur, diastolic murmur, rubs, gallop, clicks GI/Abdominal exam: Present: soft, normal bowel sounds. Absent: distended, tenderness, guarding, rebound, rigid Course Vital Signs 03/10/22 03/10/22 03/10/22 14:31 14:54 15:02 Temperature 98.3 F Pulse Rate 64 98 Pulse Rate [ 101 H Warper Creeler ] Respiratory 22 22 Rate Blood Pressure 144/66 110/86 O2 Sat by Pulse 95 93 L Oximetry 03/10/22 15:50 Temperature Pulse Rate 118 H Pulse Rate [ Warper Creeler ] Respiratory 18 Rate Blood Pressure 113/89 O2 Sat by Pulse 94 L Oximetry Medical Decision Making - Medical Decision Making 76-year-old presented for palpation, dizziness, shortness breath. Patient patient's EKG shows multiple PVCs, Atrial fibrillation. Patient is symptomatic will be admitted for cardiology evaluation. - Lab Data Result diagrams: 03/10/22 15:02 03/10/22 15:02 Lab Results 03/10/22 03/10/22 03/10/22 Range/Units 15:02 15:02 15:02 WBC 7.5 (3.8-10.6) k/uL RBC 4.51 (4.30-5.90) m/uL Hgb 15.3 (13.0-17.5) gm/dL Hct 47.3 (39.0-53.0) % MCV 104.9 H (80.0-100.0) fL MCH 34.0 (25.0-35.0) pg MCHC 32.4 (31.0-37.0) g/dL RDW 14.6 (11.5-15.5) % Plt Count 154 (150-450) k/uL MPV 8.6 Neutrophils % 77 % Lymphocytes % 13 % Monocytes % 6 % Eosinophils % 2 % Basophils % 1 % Neutrophils # 5.8 (1.3-7.7) k/uL Lymphocytes # 1.0 (1.0-4.8) k/uL Monocytes # 0.4 (0-1.0) k/uL Eosinophils # 0.2 (0-0.7) k/uL Basophils # 0.0 (0-0.2) k/uL Macrocytosis Moderate PT 11.8 (9.0-12.0) sec INR 1.1 (<1.2) APTT 29.7 (22.0-30.0) sec Sodium 137 (137-145) mmol/L Potassium 3.8 (3.5-5.1) mmol/L Chloride 107 (98-107) mmol/L Carbon Dioxide 24 (22-30) mmol/L Anion Gap 6 mmol/L BUN 26 H (9-20) mg/dL Creatinine 1.23 (0.66-1.25) mg/dL Est GFR (CKD-EPI)AfAm 65 (>60 ml/min/1.73 sqM) Est GFR (CKD-EPI)NonAf 56 (>60 ml/min/1.73 sqM) Glucose 106 H (74-99) mg/dL Calcium 9.3 (8.4-10.2) mg/dL Magnesium 1.8 (1.6-2.3) mg/dL Total Bilirubin 1.0 (0.2-1.3) mg/dL AST 24 (17-59) U/L ALT 16 (4-49) U/L Alkaline Phosphatase 87 (38-126) U/L Troponin I (0.000-0.034) ng/mL NT-Pro-B Natriuret Pep pg/mL Total Protein 6.3 (6.3-8.2) g/dL Albumin 3.6 (3.5-5.0) g/dL 03/10/22 03/10/22 Range/Units 15:02 15:02 WBC (3.8-10.6) k/uL RBC (4.30-5.90) m/uL Hgb (13.0-17.5) gm/dL Hct (39.0-53.0) % MCV (80.0-100.0) fL MCH (25.0-35.0) pg MCHC (31.0-37.0) g/dL RDW (11.5-15.5) % Plt Count (150-450) k/uL MPV Neutrophils % % Lymphocytes % % Monocytes % % Eosinophils % % Basophils % % Neutrophils # (1.3-7.7) k/uL Lymphocytes # (1.0-4.8) k/uL Monocytes # (0-1.0) k/uL Eosinophils # (0-0.7) k/uL Basophils # (0-0.2) k/uL Macrocytosis PT (9.0-12.0) sec INR (<1.2) APTT (22.0-30.0) sec Sodium (137-145) mmol/L Potassium (3.5-5.1) mmol/L Chloride (98-107) mmol/L Carbon Dioxide (22-30) mmol/L Anion Gap mmol/L BUN (9-20) mg/dL Creatinine (0.66-1.25) mg/dL Est GFR (CKD-EPI)AfAm (>60 ml/min/1.73 sqM) Est GFR (CKD-EPI)NonAf (>60 ml/min/1.73 sqM) Glucose (74-99) mg/dL Calcium (8.4-10.2) mg/dL Magnesium (1.6-2.3) mg/dL Total Bilirubin (0.2-1.3) mg/dL AST (17-59) U/L ALT (4-49) U/L Alkaline Phosphatase (38-126) U/L Troponin I <0.012 (0.000-0.034) ng/mL NT-Pro-B Natriuret Pep 1110 pg/mL Total Protein (6.3-8.2) g/dL Albumin (3.5-5.0) g/dL Disposition Clinical Impression: Chest pain, PVC (premature ventricular contraction), Atrial fibrillation, Palpitations Disposition: ADMITTED IP TO THIS HOSP Referrals: Chris Olivera MD [Primary Care Provider] - 1-2 days Time of Disposition: 16:15
[2022-03-10 15:10] LABS: Basophils % (A) 1 %; Eosinophils # (A) 0.2 k/uL (0-0.7); Eosinophils % (A) 2 %; HCT 47.3 % (39.0-53.0); HGB 15.3 gm/dL (13.0-17.5); Lymphocytes % (A) 13 %; MCHC 32.4 g/dL (31.0-37.0); MCV 104.9 fL (80.0-100.0); Macrocytosis Moderate; Mean Platelet Volume 8.6; Monocytes # (A) 0.4 k/uL (0-1.0); Monocytes % (A) 6 %; Neutrophils # (A) 5.8 k/uL (1.3-7.7); Neutrophils % (A) 77 %; Platelet Count 154 k/uL (150-450); RBC 4.51 m/uL (4.30-5.90); RDW 14.6 % (11.5-15.5); WBC 7.5 k/uL (3.8-10.6)
[2022-03-10 15:25] LABS: INR 1.1 (<1.2); Partial Thromboplastin Time 29.7 sec (22.0-30.0); Prothrombin Time 11.8 sec (9.0-12.0)
[2022-03-10 15:27] LABS: Albumin 3.6 g/dL (3.5-5.0); Calcium 9.3 mg/dL (8.4-10.2); Magnesium 1.8 mg/dL (1.6-2.3); Potassium 3.8 mmol/L (3.5-5.1); Total Protein 6.3 g/dL (6.3-8.2)
--- NOTE | 2022-03-10 15:44 | XR ---
EXAMINATION TYPE: XR chest 2V DATE OF EXAM: 03/10/2022 COMPARISON: Chest x-ray 03/08/2021 HISTORY: Chest pain TECHNIQUE: Frontal and lateral views of the chest are obtained. FINDINGS: There is no focal air space opacity, pleural effusion, or pneumothorax seen. The cardiac silhouette size is stable, enlarged, aorta is dense. Patient is post median sternotomy and left atria l appendage clip placement. There is a chronic, depressed sternal fracture present. Flattening the he midiaphragms, increased AP diameter chest suggests underlying COPD. The osseous structures are intact . IMPRESSION: No acute cardiopulmonary process. Cardiomegaly. Chronic sternal fracture. Additional chr onic findings above
[2022-03-10] MEDS: RIVAROXABAN 20 MG TAB PO SCH (20:26)
[2022-03-10] MEDS: ATORVASTATIN 40 MG TAB PO SCH (20:27)
[2022-03-10] MEDS: DOFETILIDE 125 MCG CAP PO SCH (20:27)
[2022-03-10] MEDS: hydrALAZINE HCL 25 MG TAB PO SCH (20:27)
[2022-03-10] MEDS: POTASSIUM CHLORIDE ER 20 MEQ TAB.ER PO SCH (20:27)
[2022-03-10] MEDS ORDERED: ACETAMINOPHEN TAB 500 MG TAB PO PRN (21:50)
[2022-03-11] MEDS: LEVOTHYROXINE 100 MCG TAB PO SCH (06:05)
[2022-03-11] MEDS: NITROGLYCERIN SL TABS 0.4 MG TAB SUBLINGUAL PRN ×2 (07:47→07:53)
[2022-03-11] MEDS: allopurinoL 300 MG TAB PO SCH (09:02)
[2022-03-11] MEDS: CYANOCOBALAMIN 500 MCG TAB PO SCH (09:02)
[2022-03-11] MEDS: METOPROLOL SUCCINATE (ER) 25 MG TAB.ER.24H PO SCH (09:02)
[2022-03-11] MEDS: CALCIUM CARBONATE 500 MG CHEWABLE PO SCH ×2 (09:03→16:15)
[2022-03-11] MEDS: PANTOPRAZOLE 40 MG TABLET PO SCH (09:03)
[2022-03-11] MEDS: SPIRONOLACTONE 25 MG TAB PO SCH (09:03)
[2022-03-11] MEDS: hydrALAZINE HCL 25 MG TAB PO SCH ×3 (09:03→20:51)
[2022-03-11] MEDS: ISOSORBIDE MONONITRATE ER 30 MG TAB.ER.24H PO SCH (09:03)
[2022-03-11] MEDS: MAGNESIUM OXIDE 400 MG TAB PO SCH (09:03)
[2022-03-11] MEDS: POTASSIUM CHLORIDE ER 20 MEQ TAB.ER PO SCH ×2 (09:03→20:51)
[2022-03-11] MEDS: ASPIRIN 325 MG TAB PO SCH (09:03)
[2022-03-11] MEDS: FERROUS SULFATE 325 MG TAB PO SCH (09:03)
[2022-03-11] MEDS: FUROSEMIDE 80 MG TAB PO SCH (09:05)
[2022-03-11] MEDS: DOXAZOSIN 4 MG TAB PO SCH (09:05)
[2022-03-11] MEDS: DOFETILIDE 125 MCG CAP PO SCH ×2 (09:05→20:51)
[2022-03-11 09:35] LABS: Basophils # (A) 0.05 X 10*3/uL (0.00-0.10); Basophils % (A) 0.7 %; Eosinophils # (A) 0.25 X 10*3/uL (0.04-0.35); Eosinophils % (A) 3.5 %; HCT 45.6 % (39.6-50.0); HGB 14.2 g/dL (13.0-17.0); Immature Grans, Automated 0.4 %; Lymphocytes # (A) 1.33 X 10*3/uL (0.90-5.00); Lymphocytes % (A) 18.4 %; MCH 32.3 pg (27.0-32.0); MCHC 31.1 g/dL (32.0-37.0); MCV 103.6 fL (80.0-97.0); Mean Platelet Volume 11.1 fL (9.5-12.2); Monocytes # (A) 0.71 X 10*3/uL (0.20-1.00); Monocytes % (A) 9.8 %; NRBC Per 100 WBC 0 /100 WBCS (0.0-0.0); Neutrophils # (A) 4.86 X 10*3/uL (1.80-7.70); Neutrophils % (A) 67.2 %; Platelet Count 156 X 10*3/uL (140-440); RDW 14.6 % (11.5-14.5); WBC 7.23 X 10*3/uL (4.50-10.00)
--- NOTE | 2022-03-11 10:25 | P.HPIM ---
History of Present Illness H&P Date: 03/10/22 Chief Complaint: Chest pain/ abnormal EKG 76-year-old male, history of atrial fibrillation, CAD/CHF, hypertension, hyperlipidemia and history of sleep apnea, presents emergency Department from PCPs office chief complaint of abnormal EKG. Patient states that he's felt short of breath, coughing last 24 hours and felt some palpitations. Patient states he has a history of atrial fibrillation on Tikosyn and Xarelto along with metoprolol. Patient states that he went to Dr. Olivera's office an EKG showing an irregular rhythm. Patient states he does not have any chest pressure at this time. He reports that he had ablations by Dr. Martel in December of this year. Patient denies any leg pain EKG shows multiple PVCs, Atrial fibrillation Blood work revealed WBC 7.5, hemoglobin 15.3 and platelet count of 154, sodium 137, potassium 3.8, BUN/creatinine of 26/1.3, and blood glucose of 106; troponin 0.012 Review of Systems REVIEW OF SYSTEMS: CONSTITUTIONAL: No fever, no malaise, no fatigue. HEENT: No recent visual problems or hearing problems. Denied any sore throat. CARDIOVASCULAR: No chest pain, orthopnea, PND, no palpitations, no syncope. PULMONARY: No shortness of breath, no cough, no hemoptysis. GASTROINTESTINAL: No diarrhea, no nausea, no vomiting, no abdominal pain. NEUROLOGICAL: No headaches, no weakness, no numbness. HEMATOLOGICAL: Denies any bleeding or petechiae. GENITOURINARY: Denies any burning micturition, frequency, or urgency. MUSCULOSKELETAL/RHEUMATOLOGICAL: Denies any joint pain, swelling, or any muscle pain. ENDOCRINE: Denies any polyuria or polydipsia. The rest of the 14-point review of systems is negative. Past Medical History Past Medical History: Atrial Fibrillation, Coronary Artery Disease (CAD), Cancer, Heart Failure, GERD/Reflux, Hyperlipidemia, Hypertension, Osteoarthritis (OA), Pneumonia, Renal Disease, Sleep Apnea/CPAP/BIPAP Additional Past Medical History / Comment(s): See Dr Martel's H&P. CPAP use. Hx Gout. Hx skin cancer. Hx left eye detached retina. Hx kidney failure 2 yrs ago. History of Any Multi-Drug Resistant Organisms: None Reported Past Surgical History: Coronary Bypass/CABG, Joint Replacement Additional Past Surgical History / Comment(s): Bilateral knee replacements, retinal repair left eye, cardioversion, DIPIKA, CABG 2016, thyroidectomy, left thoracentesis. Past Anesthesia/Blood Transfusion Reactions: No Reported Reaction Past Psychological History: No Psychological Hx Reported Smoking Status: Former smoker Past Alcohol Use History: None Reported Past Drug Use History: None Reported - Past Family History Mother History Unknown: Yes Family Medical History: No Reported History Father History Unknown: Yes Family Medical History: Myocardial Infarction (PA) Medications and Allergies Home Medications Medication Instructions Recorded Confirmed Type Omeprazole 20 mg PO DAILY@0830 11/16/15 03/10/22 History allopurinoL [Zyloprim] 300 mg PO DAILY@0830 11/16/15 03/10/22 History Rivaroxaban [Xarelto] 20 mg PO DAILY@1800 01/15/16 03/10/22 History Furosemide [Lasix] 80 mg PO DAILY@0830 03/19/20 03/10/22 History Levothyroxine Sodium [Synthroid] 200 mcg PO SUMOTUWETHSA 03/19/20 03/10/22 History Calcium Carbonate [Tums] 1,000 mg PO BID@0830,1500 02/14/21 03/10/22 History Dofetilide [Tikosyn] 125 mcg PO BID@0900,2100 03/08/21 03/10/22 History Spironolactone [Aldactone] 25 mg PO DAILY@0830 03/08/21 03/10/22 History Cyanocobalamin [Vitamin B-12] 500 mcg PO DAILY@0830 01/03/22 03/10/22 History Ferrous Sulfate [Feosol] 325 mg PO DAILY@0830 01/03/22 03/10/22 History Furosemide [Lasix] 40 mg PO DAILY@1500 01/03/22 03/10/22 History Magnesium Chloride [Slow-Mag] 128 mg PO DAILY@0830 01/03/22 03/10/22 History Potassium Chloride [K-Tab ER] 20 meq PO BID@0830,1500 01/03/22 03/10/22 History hydrALAZINE HCL 25 mg PO TID@0830,1500,2100 01/03/22 03/10/22 History Atorvastatin Calcium [Lipitor] 40 mg PO HS 03/10/22 03/10/22 History Atorvastatin [Lipitor] 40 mg PO HS@2100 03/10/22 03/10/22 History Doxazosin [Cardura] 4 mg PO DAILY@0830 03/10/22 03/10/22 History Metoprolol Tartrate [Lopressor] 50 mg PO DAILY@30 03/10/22 03/10/22 History Allergies Allergy/AdvReac Type Severity Reaction Status Date / Time No Known Allergies Allergy Verified 03/10/22 16:16 Physical Exam Vitals: Vital Signs Temp Pulse Pulse Resp BP Pulse Ox 03/10/22 17:08 98.2 F 102 H 18 111/75 96 03/10/22 15:50 118 H 18 113/89 94 L 03/10/22 15:02 98 22 110/86 93 L 03/10/22 14:54 101 H 03/10/22 14:31 98.3 F 64 22 144/66 95 Intake and Output 03/10/22 03/10/22 03/10/22 06:59 14:59 22:59 Other: Weight 154.221 kg General appearance: Present: average body habitus, cooperative, no acute distress Eyes: Present: anicteric sclerae, EOMI, PERRLA, normal appearance Neck: Present: normal ROM. Absent: lymphadenopathy, rigidity, thyromegaly Carotids: negative: bruit present Thyroid: bilateral: normal size, negative: enlarged, nodule Respiratory: bilateral: CTA, negative: rales, rhonchi, wheezing Cardiovascular: regular: normal: S1, S2 General gastrointestinal: Present: normal bowel sounds, soft. Absent: distended, organomegaly, tenderness Genitourinary Comment(s): deferred Integumentary: Present: normal turgor. Absent: jaundiced, rash, ulcer Neurologic: Present: CNII-XII intact. Absent: focal deficits Musculoskeletal: Present: gait normal, strength equal bilaterally Results CBC & Chem 7: 03/11/22 04:32 03/10/22 15:02 Labs: Abnormal Lab Results - Last 24 Hours (Table) 03/10/22 03/10/22 Range/Units 15:02 15:02 MCV 104.9 H (80.0-100.0) fL BUN 26 H (9-20) mg/dL Glucose 106 H (74-99) mg/dL Assessment and Plan Assessment: 1. Chest pain/palpitations - We will admit to telemetry; monitor EKG and trend troponin - Consult cardiology 2. Atrial fibrillation; patient is rate controlled on decrease in 125 MCG twice a day and metoprolol 25 mg daily; anticoagulation with Xarelto 20 mg daily at bedtime 3. Mild renal injury; slow IV fluid hydration with normal saline at rate of 75 mL an hour; we will avoid nephrotoxins and hypotension; monitor renal function and electrolytes 4. CAD/CHF; stable on aspirin, statins, beta blockers and nitrates; Lasix 80 mg by mouth every morning and 40 mg by mouth 5. Hypertension; Cardura 4 mg daily, hydralazine 25 mg 3 times a day, metoprolol 25 mg daily and Imdur 30 mg daily 6. Hyperlipidemia; Lipitor 40 mg by mouth daily at bedtime 7. Hypothyroidism; levothyroxin 200 MCG daily 8. Sleep apnea; patient uses CPAP at home DVT prophylaxis; SCDs/systemic anticoagulation CODE STATUS; full code
[2022-03-11 12:00] LABS: African American GFR (CKD) 94.5 (60.0-200.0); BUN/Creat Ratio 31.67 Ratio (12.00-20.00); Blood Urea Nitrogen 28.5 mg/dL (9.0-27.0); Calcium 9.9 mg/dL (8.7-10.3); Chloride 92 mmol/L (96-109); Chol/HDL Ratio 3.27 Ratio; Glucose 107 mg/dL (70-110); LDL Cholesterol,Calculated 73.2 mg/dL (0.0-131.0); Non-African American GFR(CKD) 81.5 (60.0-200.0); Potassium 4.9 mmol/L (3.5-5.5); Sodium 133 mmol/L (135-145)
--- NOTE | 2022-03-11 13:23 | CA ---
Transthoracic Echo Report Name: Orlando White Age: 76 Gender: M : 1945 Exam Date: 03/11/2022 10:32 Exam Location: [facility] Ht (in): 73 Wt (lb): 340 Ordering Physician: Rishi Shepard MD ([id number]) Attending/Referring Phys: Drea DEE Ladderman Norma Mariano RDCS Procedure CPT: Indications: Chest Pain Cardiac Hx: Technical Quality: Technically difficult study Contrast 1: Lumason Total Dose (mL): 4 Contrast 2: Total Dose (mL): MEASUREMENTS (Male / Female) Normal Values 2D ECHO LV Diastolic Diameter PLAX 5.7 cm 4.2 - 5.9 / 3.9 - 5.3 cm LV Systolic Diameter PLAX 4.6 cm IVS Diastolic Thickness 1.5 cm 0.6 - 1.0 / 0.6 - 0.9 cm LVPW Diastolic Thickness 1.5 cm 0.6 - 1.0 / 0.6 - 0.9 cm LV Relative Wall Thickness 0.5 DOPPLER AV Peak Velocity 168.8 cm/s AV Peak Gradient 11.4 mmHg FINDINGS Left Ventricle Moderately increased left ventricular wall thickness. Left ventricular ejection fraction is estimated at _40-45 %. Reduced global left ventricular systolic function. Abnormal (paradoxical) septal motion consistent with postoperative state. Right Ventricle Mild right ventricular dilatation. Right Atrium Right atrium not well visualized. Left Atrium Left atrium not well visualized. Mitral Valve Mitral valve not well visualized. Mild mitral annular calcification. Mild mitral regurgitation. Aortic Valve Aortic valve not well visualized. No aortic stenosis. No aortic regurgitation. Tricuspid Valve Tricuspid valve not well visualized. Pulmonic Valve Pulmonic valve not well visualized. Pericardium No pericardial effusion. Aorta Aortic root and proximal ascending aorta not well visualized. CONCLUSIONS Technically suboptimal study secondary to poor echo windows. The contrast agent was and was used to enhance images. There is moderate LV systolic dysfunction Previewed by: Dr. Rishi Shepard MD (Electronically Signed) Final Date: 11 March 2022 13:22
[2022-03-11] MEDS ORDERED: FUROSEMIDE 40 MG TAB PO SCH (15:00)
[2022-03-11] MEDS: ATORVASTATIN 40 MG TAB PO SCH (20:51)
[2022-03-11] MEDS: RIVAROXABAN 20 MG TAB PO SCH (20:51)
[2022-03-12] MEDS: LEVOTHYROXINE 100 MCG TAB PO SCH (06:04)
[2022-03-12 07:38] VITALS: RESP 19
[2022-03-12] MEDS: POTASSIUM CHLORIDE ER 20 MEQ TAB.ER PO SCH (08:18)
[2022-03-12] MEDS: hydrALAZINE HCL 25 MG TAB PO SCH (08:18)
[2022-03-12] MEDS: FUROSEMIDE 80 MG TAB PO SCH (08:18)
[2022-03-12] MEDS: ASPIRIN 325 MG TAB PO SCH (08:18)
[2022-03-12] MEDS: PANTOPRAZOLE 40 MG TABLET PO SCH (08:18)
[2022-03-12] MEDS: MAGNESIUM OXIDE 400 MG TAB PO SCH (08:18)
[2022-03-12] MEDS: CALCIUM CARBONATE 500 MG CHEWABLE PO SCH (08:18)
[2022-03-12] MEDS: DOFETILIDE 125 MCG CAP PO SCH (08:18)
[2022-03-12] MEDS: DOXAZOSIN 4 MG TAB PO SCH (08:18)
[2022-03-12] MEDS: METOPROLOL SUCCINATE (ER) 25 MG TAB.ER.24H PO SCH (08:18)
[2022-03-12] MEDS: SPIRONOLACTONE 25 MG TAB PO SCH (08:19)
[2022-03-12] MEDS: allopurinoL 300 MG TAB PO SCH (08:19)
[2022-03-12] MEDS: ISOSORBIDE MONONITRATE ER 30 MG TAB.ER.24H PO SCH (08:19)
[2022-03-12] MEDS: CYANOCOBALAMIN 500 MCG TAB PO SCH (08:19)
[2022-03-12] MEDS: FERROUS SULFATE 325 MG TAB PO SCH (08:19)
[2022-03-12 10:16] LABS: African American GFR (CKD) 47.1 (60.0-200.0); Anion Gap 11.1 mmol/L (10.00-18.00); BUN/Creat Ratio 14.5 Ratio (12.00-20.00); Blood Urea Nitrogen 23.2 mg/dL (9.0-27.0); Calcium 8.7 mg/dL (8.7-10.3); Carbon Dioxide 25.9 mmol/L (20.0-27.5); Non-African American GFR(CKD) 40.7 (60.0-200.0); Potassium 4.4 mmol/L (3.5-5.5)
--- NOTE | 2022-03-12 13:10 | PN ---
PROGRESS NOTE Orlando is a 76-year-old gentleman with history of atrial fibrillation, status post prior ablations and cardioversions, who presented to hospital with an irregular pulse. He was found to be in atrial fibrillation and was also having a lot of PVCs, but had remained clinically stable. He did not have any episodes of atrial fibrillation with rapid ventricular rate or significant ventricular tachyarrhythmias on this admission. He complained of chest pain yesterday and ruled out for myocardial infarction. On an echocardiogram I performed, the patient had LV systolic dysfunction, but this is a technically suboptimal study. He is currently on aspirin, Lipitor, Tikosyn, Cardura, Lasix, Apresoline, Toprol, and Xarelto. EXAM: On exam comfortable at rest. Vital signs are stable. Chest exam reveals good air entry bilaterally. Heart exam reveals first and second heart sounds. No gallop. Examination of extremities did not reveal any edema. Peripheral pulses are felt. Cardiac enzymes have been negative. ASSESSMENT: 1. Persistent atrial fibrillation with controlled ventricular rate. 2. Coronary artery disease. 3. Hypertension. 4. Dyslipidemia. PLAN: Patient is stable clinically. Okay for discharge. Follow up with Cardiology in the outpatient setting. MMODL / IJN: [id number] /
--- NOTE | 2022-03-12 13:37 | CONS ---
CONSULTATION I dictated a consult on this patient yesterday. I cannot find my dictation. I am redictating this. CHIEF COMPLAINT: Palpitation. HISTORY OF PRESENT ILLNESS: Orlando is a 76-year-old gentleman with history of persistent atrial fibrillation, status post prior ablations and cardioversion in September and coronary artery disease status post CABG, who presented to hospital primarily because he found that his pulse was irregular. After coming to the hospital, he complained of an episode of chest pain. On his presentation, his EKG showed atrial fibrillation with frequent PVCs, but the heart rate was well controlled. He ruled out for myocardial infarction and following an episode of chest pain, had another set of troponins done. His cardiac history is significant for coronary artery disease status post prior bypass in 2015 with ASHTON to LAD, saphenous vein graft to the ramus. His left atrial appendage was ligated at that time. He has an ejection fraction of 45%. The patient has had ablation and cardioversion and most recently had been on Tikosyn. CURRENT MEDICATIONS: Include: Xarelto 20 mg daily, Lopressor 50 mg daily, Aldactone, potassium, Slow-Mag, Synthroid, hydralazine 25 t.i.d., Lasix, Lipitor, Cardura, Tikosyn, Zyloprim and Lipitor. ALLERGIES: There are no known drug allergies. FAMILY HISTORY: Negative for premature coronary artery disease. SOCIAL HISTORY: Negative for current smoking, EtOH abuse or drug abuse. REVIEW OF SYSTEMS: 14 out of 14 review of systems has been performed. Pertinents are as documented. EXAM: Comfortable at rest. Vital signs are stable. Chest exam reveals good air entry bilaterally. Heart exam reveals first and second heart sounds, irregular rhythm and a systolic murmur at the apex. Abdomen: Soft. Exam of extremities reveals mild bilateral pitting edema. Peripheral pulses are palpable. LABORATORY DATA: Showed that the tropes are negative. Hemoglobin is normal. Creatinine is normal. ASSESSMENT AND PLAN: 1. Persistent atrial fibrillation with controlled ventricular rate. 2. Coronary artery disease status post CABG with an episode of chest discomfort. 3. Hypertension. PLAN: The patient remains in atrial fibrillation with controlled ventricular rate. The chest discomfort is mild intensity, sharp, and if myocardial infarction is ruled out , his workup can be pursued as outpatient. His atrial fibrillation needs to be addressed further either with an AV adin ablation with pacemaker, another attempt at ablation or cardioversion or if we decide to leave him in atrial fibrillation, control his heart rate and continue with anticoagulation and stop the Tikosyn. These issues will be addressed in the outpatient setting. MMODL / IJN: [id number] /
--- NOTE | 2022-03-12 14:43 | P.PN ---
Subjective Progress Note Date: 03/11/22 76-year-old male, history of atrial fibrillation, CAD/CHF, hypertension, hyperlipidemia and history of sleep apnea, presents emergency Department from PCPs office chief complaint of abnormal EKG. Patient states that he's felt short of breath, coughing last 24 hours and felt some palpitations. Patient s jesse he has a history of atrial fibrillation on Tikosyn and Xarelto along with metoprolol. Patient states that he went to Dr. Olivera's office an EKG showing an irregular rhythm. Patient states he does not have any chest pressure at this time. He reports that he had ablations by Dr. Martel in December of this year. Patient denies any leg pain EKG shows multiple PVCs, Atrial fibrillation Blood work revealed WBC 7.5, hemoglobin 15.3 and platelet count of 154, sodium 137, potassium 3.8, BUN/creatinine of 26/1.3, and blood glucose of 106; troponin 0.012 Patient is being evaluated by cardiology; remains in persistent atrial fibrillation with controlled ventricular response; heart rate is improved; continue to monitor on current management with possible discharge in next 24 hours Objective - Vital Signs Vital signs: Vital Signs Temp 98.7 F 03/11/22 15:00 Pulse 51 L 03/11/22 15:00 Resp 20 03/11/22 15:00 BP 99/60 03/11/22 15:00 Pulse Ox 95 03/11/22 15:00 FiO2 Intake & Output 03/10/22 03/11/22 03/11/22 18:59 06:59 18:59 Intake Total 240 118 Balance 240 118 Weight 154.221 kg Intake: Oral 240 118 Other: Voiding Method Toilet Toilet Toilet # Voids 1 2 1 - Exam - Constitutional General appearance: Present: average body habitus, cooperative, no acute distress - EENT Eyes: Present: anicteric sclerae, EOMI, PERRLA, normal appearance ENT: Present: hearing grossly normal, normal oropharynx Ears: bilateral: normal - Neck Neck: Present: normal ROM. Absent: lymphadenopathy, rigidity, thyromegaly Carotids: negative: bruit present Thyroid: bilateral: normal size, negative: enlarged, nodule - Respiratory Respiratory: bilateral: CTA, negative: rales, rhonchi, wheezing - Cardiovascular Rhythm: regular Heart sounds: normal: S1, S2 Abnormal Heart Sounds: Absent: systolic murmur, diastolic murmur - Gastrointestinal General gastrointestinal: Present: normal bowel sounds, soft. Absent: distended, organomegaly, tenderness - Genitourinary Genitourinary Comment(s): deferred - Integumentary Integumentary: Present: normal turgor. Absent: jaundiced, rash, ulcer - Neurologic Neurologic: Present: CNII-XII intact. Absent: focal deficits - Musculoskeletal Musculoskeletal: Present: gait normal, strength equal bilaterally - Psychiatric Psychiatric: Present: A&O x's 3, appropriate affect, intact judgment & insight - Labs CBC & Chem 7: 03/11/22 04:32 03/12/22 04:41 Labs: Abnormal Lab Results - Last 24 Hours (Table) 03/11/22 03/11/22 Range/Units 04:32 04:32 MCV 103.6 H (80.0-97.0) fL MCH 32.3 H (27.0-32.0) pg MCHC 31.1 L (32.0-37.0) g/dL RDW 14.6 H (11.5-14.5) % Sodium 133 L (135-145) mmol/L Chloride 92 L (96-109) mmol/L BUN 28.5 H (9.0-27.0) mg/dL BUN/Creatinine Ratio 31.67 H (12.00-20.00) Ratio Triglycerides 200.00 H (0.00-149.00) mg/dL Assessment and Plan Assessment: 1. Chest pain/palpitations - We will admit to telemetry; monitor EKG and trend troponin - Consult cardiology 2. Atrial fibrillation; patient is rate controlled on decrease in 125 MCG twice a day and metoprolol 25 mg daily; anticoagulation with Xarelto 20 mg daily at bedtime 3. Mild renal injury; slow IV fluid hydration with normal saline at rate of 75 mL an hour; we will avoid nephrotoxins and hypotension; monitor renal function and electrolytes 4. CAD/CHF; stable on aspirin, statins, beta blockers and nitrates; Lasix 80 mg by mouth every morning and 40 mg by mouth 5. Hypertension; Cardura 4 mg daily, hydralazine 25 mg 3 times a day, metoprolol 25 mg daily and Imdur 30 mg daily 6. Hyperlipidemia; Lipitor 40 mg by mouth daily at bedtime 7. Hypothyroidism; levothyroxin 200 MCG daily 8. Sleep apnea; patient uses CPAP at home DVT prophylaxis; SCDs/systemic anticoagulation CODE STATUS; full code
--- NOTE | 2022-03-12 14:50 | P.DS ---
Providers Date of admission: 03/10/22 16:16 Expected date of discharge: 03/12/22 Attending physician: Hakeem Henderson MD Consults: 03/10/22 16:16 Consult Physician Urgent Consulting Provider: Chidi Solano Consult Reason/Comments: Atrial fibrillation, PVCs Do you want consulting provider notified?: Yes Primary care physician: Chris Olivera [facility] Course: 76-year-old male, history of atrial fibrillation, CAD/CHF, hypertension, hyperlipidemia and history of sleep apnea, presents emergency Department from PCPs office chief complaint of abnormal EKG. Patient states that he's felt short of breath, coughing last 24 hours and felt some palpitations. Patient states he has a history of atrial fibrillation on Tikosyn and Xarelto along with metoprolol. Patient states that he went to Dr. Olivera's office an EKG showing an irregular rhythm. Patient states he does not have any chest pressure at this time. He reports that he had ablations by Dr. Martel in December of this year. Patient denies any leg pain EKG shows multiple PVCs, Atrial fibrillation Blood work revealed WBC 7.5, hemoglobin 15.3 and platelet count of 154, sodium 137, potassium 3.8, BUN/creatinine of 26/1.3, and blood glucose of 106; troponin 0.012 Patient is being evaluated by cardiology; remains in persistent atrial fibrillation with controlled ventricular response; heart rate is improved; continue to monitor on current management with possible discharge in next 24 hours Patient continues to complain of intermittent chest pain/discomfort, Imdur was added to the regimen; patient was recommended to possible pacemaker for atrial fibrillation and continue with heart rate controlling strategy; Tikosyn is recommended to be discontinued Plan - Discharge Summary Discharge Rx Participant: No New Discharge Prescriptions: New Aspirin 325 mg PO DAILY tab Isosorbide Mononitrate ER [Imdur] 30 mg PO DAILY 30 Days #30 tab Metoprolol Succinate (ER) [Toprol XL] 25 mg PO DAILY 30 Days #30 tab Continue Omeprazole 20 mg PO DAILY@0830 allopurinoL [Zyloprim] 300 mg PO DAILY@0830 Rivaroxaban [Xarelto] 20 mg PO DAILY@1800 Furosemide [Lasix] 80 mg PO DAILY@0830 Levothyroxine Sodium [Synthroid] 200 mcg PO SUMOTUWETHSA Calcium Carbonate [Tums] 1,000 mg PO BID@0830,1500 Spironolactone [Aldactone] 25 mg PO DAILY@0830 Furosemide [Lasix] 40 mg PO DAILY@1500 hydrALAZINE HCL 25 mg PO TID@0830,1499,2099 Atorvastatin [Lipitor] 40 mg PO HS@2099 Atorvastatin Calcium [Lipitor] 40 mg PO HS Dofetilide [Tikosyn] 125 mcg PO BID@0900,2100 Magnesium Chloride [Slow-Mag] 128 mg PO DAILY@0830 Potassium Chloride [K-Tab ER] 20 meq PO BID@0830,1500 Ferrous Sulfate [Feosol] 325 mg PO DAILY@08 Cyanocobalamin [Vitamin B-12] 500 mcg PO DAILY@08 Doxazosin [Cardura] 4 mg PO DAILY@08 Discontinued Metoprolol Tartrate [Lopressor] 50 mg PO DAILY@08 Discharge Medication List Omeprazole 20 mg PO DAILY@0811/16/15 [History] allopurinoL [Zyloprim] 300 mg PO DAILY@82911/16/15 [History] Rivaroxaban [Xarelto] 20 mg PO DAILY@1800 01/15/16 [History] Furosemide [Lasix] 80 mg PO DAILY@82903/19/20 [History] Levothyroxine Sodium [Synthroid] 200 mcg PO SUMOTUWETHSA 03/19/20 [History] Calcium Carbonate [Tums] 1,000 mg PO BID@0830,1500 02/14/21 [History] Dofetilide [Tikosyn] 125 mcg PO BID@0900,209903/08/21 [History] Spironolactone [Aldactone] 25 mg PO DAILY@82903/08/21 [History] Cyanocobalamin [Vitamin B-12] 500 mcg PO DAILY@82901/03/22 [History] Ferrous Sulfate [Feosol] 325 mg PO DAILY@82901/03/22 [History] Furosemide [Lasix] 40 mg PO DAILY@149901/03/22 [History] Magnesium Chloride [Slow-Mag] 128 mg PO DAILY@82901/03/22 [History] Potassium Chloride [K-Tab ER] 20 meq PO BID@0830,1500 01/03/22 [History] hydrALAZINE HCL 25 mg PO TID@0830,1500,209922 [History] Atorvastatin Calcium [Lipitor] 40 mg PO HS 03/10/22 [History] Atorvastatin [Lipitor] 40 mg PO HS@2100 03/10/22 [History] Doxazosin [Cardura] 4 mg PO DAILY@0830 03/10/22 [History] Aspirin 325 mg PO DAILY tab 03/12/22 [Rx] Isosorbide Mononitrate ER [Imdur] 30 mg PO DAILY 30 Days #30 tab 03/12/22 [Rx] Metoprolol Succinate (ER) [Toprol XL] 25 mg PO DAILY 30 Days #30 tab 03/12/22 [Rx] Follow up Appointment(s)/Referral(s): Chris Olivera MD [Primary Care Provider] - 1-2 days
[2022-03-12 14:51] VITALS: BP 114/67; PULSE 63; TEMP 98.2
--- NOTE | 2022-03-13 09:38 | CONS ---
CONSULTATION CHIEF COMPLAINT: Chest pain. Mr. White is a 75-year-old gentleman with history of coronary artery disease, status post CABG in 2016, atrial fibrillation, status post prior ablation and cardioversion, who is currently on Tikosyn. He presented to hospital primarily because he felt that his pulse was feeling unusual and abnormal. He came to the hospital. He was found to be in atrial fibrillation with frequent PVCs, for which the initial consult had been placed. Subsequently this morning he had an episode of chest pain that was mild in intensity, pericardial, described as a pressure without radiation to neck, arm or back, and responded to sublingual nitroglycerin. He is pain-free at the time of my evaluation. The patient has had three sets of cardiac enzymes that have all been within normal limits. An EKG shows atrial fibrillation, frequent PVCs, nonspecific ST-T wave changes, and the EKG remains unchanged compared to the admission EKG. The plan at this stage is to add nitrates to his current medical regimen, feed him, obtain a 2D echo, ambulate him. If he is feeling fine, hopefully home in the next 24 to 48 hours and pursue his workup as outpatient. Patient remains in atrial fibrillation in spite of the Tikosyn and may need another effort at cardioversion or another attempt at atrial fibrillation. We might even consider AV adin ablation with pacemaker or simply accept that patient is going to be in atrial fibrillation, control the heart rate, and stop Tikosyn, which is not serving any purpose at the moment. These issues will be addressed in the outpatient setup by Dr. Page, who regularly sees him, and Dr. Martel, who has had extensive involvement with him. PAST MEDICAL HISTORY: Significant for persistent atrial fibrillation, coronary artery disease, status post CABG, hypertension and dyslipidemia. CURRENT MEDICATIONS: Current medications include Xarelto 20 daily, Lopressor 50 daily, Aldactone, K-Dur, omeprazole, Slow-Mag, Synthroid, hydralazine, Lasix, Lipitor, iron, Cardura, Tikosyn, Tums, Zyloprim and Lipitor. ALLERGIES: There are NO KNOWN DRUG ALLERGIES. FAMILY HISTORY: Negative for premature coronary artery disease. SOCIAL HISTORY: Negative for current smoking, EtOH abuse or drug abuse. REVIEW OF SYSTEMS: HEENT is unremarkable. CARDIAC: As described above. RESPIRATORY: Negative. GI: Negative. GENITOURINARY: Negative. ALLERGY/IMMUNOLOGY: Negative. SKIN: Negative. MUSCULOSKELETAL: Negative. ENDOCRINE: Negative. DERMATOLOGY: Negative. CONSTITUTIONAL: Negative. ONCOLOGICAL: Negative. MARKETING CLERK: Negative. Rest of the system review is not relevant. PHYSICAL EXAMINATION: Patient is afebrile. Heart rate is 66 beats per minute. Blood pressure is 120/82, respiratory rate is 18. O2 saturation is 96% on room air. There is no jugular venous distention. Carotid upstroke is normal. There is no bruit. Chest exam reveals good air entry bilaterally. Heart exam reveals first and second heart sounds, systolic murmur, irregular rhythm. Abdomen is soft. Examination of extremities reveals mild edema. Peripheral pulses are felt. LABS: Hemoglobin of 15.3, platelet count is 150. Potassium is 3.8. Creatinine is 1.2. Troponins are negative. ASSESSMENT: 1. Precordial chest pain. 2. Persistent atrial fibrillation with controlled ventricular rate. 3. Known coronary artery disease, status post CABG. 4. Elevated BNP of no clinical significance. Patient does not have symptoms of congestive heart failure. The patient does not have heart failure. PLAN: Will start him on Imdur, continue his medications, obtain an echo, ambulate him. Hopefully home tomorrow. MMODL / IJN: [id number] /
== END 2022-03-12 16:00 | disposition home or self-care (01) ==
LOC: EC 14:29 → 6NMEDSUR 16:16
PROVIDERS: ADMIT Internal Medicine; ATTEND Internal Medicine
DX: I48.19 Other persistent atrial fibrillation (principal); I11.0 Hypertensive heart disease with heart failure; I50.9 Heart failure, unspecified; I25.10 Atherosclerotic heart disease of native coronary artery without angina pectoris; E78.5 Hyperlipidemia, unspecified; G47.30 Sleep apnea, unspecified; R05.9 Cough, unspecified; K21.9 Gastro-esophageal reflux disease without esophagitis; M19.90 Unspecified osteoarthritis, unspecified site; M10.9 Gout, unspecified; R79.89 Other specified abnormal findings of blood chemistry; N19 Unspecified kidney failure; I49.3 Ventricular premature depolarization; Z87.01 Personal history of pneumonia (recurrent); Z85.828 Personal history of other malignant neoplasm of skin; E89.0 Postprocedural hypothyroidism; Z95.1 Presence of aortocoronary bypass graft; Z96.653 Presence of artificial knee joint, bilateral; Z87.891 Personal history of nicotine dependence; Z79.899 Other long term (current) drug therapy; Z79.82 Long term (current) use of aspirin; Z79.01 Long term (current) use of anticoagulants; Z79.890 Hormone replacement therapy; Z82.49 Family history of ischemic heart disease and other diseases of the circulatory system
CPT/HCPCS: 99285; 36415; 93005; 83880; 80061; 80053; 80048 ×2; 83735; 84484 ×2; 85025 ×2; 85610; 85730; 71046; G0378 ×3; C8929; Q9950; 93306

== ENCOUNTER 2022-05-08 15:06 | Emergency (ER) | payer MEDICARE ==
--- NOTE | 2022-05-08 16:07 | ED ---
General Adult HPI - General Chief complaint: Shortness of Breath Stated complaint: Chest Pain,SOB,Black Stool Time Seen by Provider: 05/08/22 15:49 Source: patient, RN notes reviewed, old records reviewed Mode of arrival: ambulatory Limitations: no limitations - History of Present Illness Initial comments: 77-year-old male, alert and oriented 4 presents with family complaining of shortness of breath and rectal bleeding for the past 2 weeks. Patient states that he gets short of breath with conversation or minimal position changes. He states every time he has a bowel movement it is black in color. He denies any abdominal pain or chest pain. He does have a history of atrial fibrillation, coronary artery disease, congestive heart failure, hypertension and chronic kidney disease. His last colonoscopy was over 10 years ago and states was told he would never need another colonoscopy again. He states he does take isosorbide and xarelto for his A. fib. He was started on Farxiga 2 weeks ago when all of his symptoms started. -: week(s) (2) Severity scale (1-10): 0 Associated Symptoms: loss of appetite, malaise, shortness of breath, weakness Treatments Prior to Arrival: none - Related Data Home Medications Medication Instructions Recorded Confirmed Omeprazole 20 mg PO DAILY@82911/16/15 05/08/22 allopurinoL [Zyloprim] 300 mg PO DAILY@82911/16/15 05/08/22 Rivaroxaban [Xarelto] 20 mg PO DAILY@1800 01/15/16 05/08/22 Furosemide [Lasix] 80 mg PO DAILY@82903/19/20 05/08/22 Calcium Carbonate [Tums] 1,000 mg PO BID@0830,149902/14/21 05/08/22 Spironolactone [Aldactone] 25 mg PO DAILY@179903/08/21 05/08/22 Cyanocobalamin [Vitamin B-12] 500 mcg PO DAILY@82901/03/22 05/08/22 Ferrous Sulfate [Feosol] 325 mg PO DAILY@82901/03/22 05/08/22 Furosemide [Lasix] 40 mg PO DAILY@149901/03/22 05/08/22 Magnesium Chloride [Slow-Mag] 64 mg PO BID@08,149901/03/22 05/08/22 Potassium Chloride [K-Tab ER] 20 meq PO BID@0830,1500 01/03/22 05/08/22 hydrALAZINE HCL 25 mg PO TID@0830,1500,1800 01/03/22 05/08/22 Atorvastatin [Lipitor] 40 mg PO HS@2200 03/10/22 05/08/22 Doxazosin [Cardura] 4 mg PO DAILY@1800 03/10/22 05/08/22 Cholecalciferol [Vitamin D3 (125 125 mcg PO DAILY@0830 05/08/22 05/08/22 Mcg = 5000 Iu)] Levothyroxine Sodium [Synthroid] 200 mcg PO SUMOTUWETHSA 05/08/22 05/08/22 Previous Rx's Medication Instructions Recorded Aspirin 325 mg PO DAILY tab 03/12/22 Isosorbide Mononitrate ER [Imdur] 30 mg PO DAILY 30 Days #30 tab 03/12/22 Metoprolol Succinate (ER) [Toprol 25 mg PO DAILY 30 Days #30 tab 03/12/22 XL] Allergies Allergy/AdvReac Type Severity Reaction Status Date / Time No Known Allergies Allergy Verified 05/08/22 17:22 Review of Systems ROS Statement: Those systems with pertinent positive or pertinent negative responses have been documented in the HPI. ROS Other: All systems not noted in ROS Statement are negative. Past Medical History Past Medical History: Atrial Fibrillation, Coronary Artery Disease (CAD), Cancer, Heart Failure, GERD/Reflux, Hyperlipidemia, Hypertension, Osteoarthritis (OA), Pneumonia, Renal Disease, Sleep Apnea/CPAP/BIPAP Additional Past Medical History / Comment(s): See Dr Martel's H&P. CPAP use. Hx Gout. Hx skin cancer. Hx left eye detached retina. Hx kidney failure 2 yrs ago. History of Any Multi-Drug Resistant Organisms: None Reported Past Surgical History: Coronary Bypass/CABG, Joint Replacement Additional Past Surgical History / Comment(s): Bilateral knee replacements, retinal repair left eye, cardioversion, DIPIKA, CABG 2016, thyroidectomy, left thoracentesis. Past Anesthesia/Blood Transfusion Reactions: No Reported Reaction Past Psychological History: No Psychological Hx Reported Smoking Status: Former smoker Past Alcohol Use History: None Reported Past Drug Use History: None Reported - Past Family History Mother History Unknown: Yes Family Medical History: No Reported History Father History Unknown: Yes Family Medical History: Myocardial Infarction (NH) General Exam Limitations: no limitations General appearance: alert, in no apparent distress Head exam: Present: atraumatic, normocephalic, normal inspection Eye exam: Present: other (Pale conjunctiva). Absent: scleral icterus, conjunctival injection, periorbital swelling ENT exam: Present: mucous membranes moist, other (Pale mucous membranes) Neck exam: Present: normal inspection, full ROM. Absent: tenderness, meningism us, lymphadenopathy, thyromegaly Respiratory exam: Present: normal lung sounds bilaterally. Absent: respiratory distress, accessory muscle use Cardiovascular Exam: Present: tachycardia GI/Abdominal exam: Present: soft. Absent: distended, tenderness, guarding, rebound, rigid Rectal exam: Present: normal rectal tone, bloody stool, hemorrhoids. Absent: mass Extremities exam: Present: pedal edema. Absent: tenderness, calf tenderness Back exam: Present: normal inspection. Absent: tenderness, CVA tenderness (R), CVA tenderness (L), rash noted Neurological exam: Present: alert, oriented X3 Psychiatric exam: Present: normal affect, normal mood Skin exam: Present: warm, dry, pallor. Absent: cyanosis, diaphoretic Course Vital Signs 05/08/22 05/08/22 05/08/22 15:26 17:09 18:04 Temperature 98.3 F 98.4 F 98.6 F Pulse Rate 81 118 H 115 H Respiratory 22 24 22 Rate Blood Pressure 120/57 106/75 81/62 O2 Sat by Pulse 97 100 97 Oximetry 05/08/22 18:15 Temperature 98.4 F Pulse Rate 122 H Respiratory 22 Rate Blood Pressure 69/56 O2 Sat by Pulse 100 Oximetry EKG Findings - EKG Results: EKG shows: tachycardia (EKG reads junctional tachycardia with PVCs. Ventricular rate 133, GA interval 0.81, QRS 0.122, QTC 0.425) Medical Decision Making - Medical Decision Making Patient presents with 2 weeks of rectal bleeding, weakness, malaise and shortness of breath. States that he was taken off of his Tikosyn 2 weeks ago and put on Farxiga and that is when he noticed the rectal bleeding. Patient's blood pressures 120/57, heart rate 87. He is afebrile. X-ray shows marked cardiomegaly with COPD. Labs show hemoglobin of 4.5 hematocrit 16.3. Occult blood positive. 2 units of packed RBCs were ordered. Lactic acid is 7.0. He was given 1000 mL bolus and 130 mL an hour. This does not appear to be sepsis. Troponin is negative. EKG shows a junctional tachycardia vs atrial fibrillation. BUN 41 creatinine 1.67 consistent with his previous labs March 11, 2022. CT abdomen was performed without contrast due to chronic kidney disease, and due to body habitus evaluation is limited. There is no evidence of gastrointestinal hemorrhage. There was limited evaluation of the right colon however no obvious acute intra-abdominal process noted. There is partial visualization of gallbladder suggest gallstones. Infrarenal aortic aneurysm measuring 2.1 cm, no evidence of dissection. Case discussed with Dr. Lynn. Patient will be transfused with 2 units of p acked RBCs prior to transfer. Due to lack of GI coverage, he will be transferred to [facility] by Dr. Vasques for GI bleed, anemia and lactic acidosis. - Lab Data Result diagrams: 05/08/22 15:38 05/08/22 15:38 Lab Results 05/08/22 05/08/22 05/08/22 Range/Units 15:38 15:38 15:38 WBC 11.4 H (3.8-10.6) k/uL RBC 1.51 L (4.30-5.90) m/uL Hgb 4.5 L* D (13.0-17.5) gm/dL Hct 16.3 L* (39.0-53.0) % MCV 107.4 H (80.0-100.0) fL MCH 29.7 (25.0-35.0) pg MCHC 27.6 L (31.0-37.0) g/dL RDW 15.7 H (11.5-15.5) % Plt Count 306 (150-450) k/uL MPV 8.9 Neutrophils % 84 % Lymphocytes % 7 % Monocytes % 7 % Eosinophils % 0 % Basophils % 0 % Neutrophils # 9.5 H (1.3-7.7) k/uL Lymphocytes # 0.8 L (1.0-4.8) k/uL Monocytes # 0.8 (0-1.0) k/uL Eosinophils # 0.0 (0-0.7) k/uL Basophils # 0.0 (0-0.2) k/uL Manual Slide Review Performed Polychromasia Present Hypochromasia Marked Poikilocytosis Marked Macrocytosis Marked A Target Cells Present Ovalocytes Present PT 15.9 H (9.0-12.0) sec INR 1.6 H (<1.2) APTT 24.6 (22.0-30.0) sec Sodium 134 L (137-145) mmol/L Potassium 3.8 (3.5-5.1) mmol/L Chloride 104 (98-107) mmol/L Carbon Dioxide 17 L (22-30) mmol/L Anion Gap 13 mmol/L BUN 41 H (9-20) mg/dL Creatinine 1.67 H (0.66-1.25) mg/dL Est GFR (CKD-EPI)AfAm 44 (>60 ml/min/1.73 sqM) Est GFR (CKD-EPI)NonAf 38 (>60 ml/min/1.73 sqM) Glucose 133 H (74-99) mg/dL Lactic Ac Sepsis Rflx Plasma Lactic Acid Jake (0.7-2.0) mmol/L Calcium 7.9 L (8.4-10.2) mg/dL Magnesium 2.2 (1.6-2.3) mg/dL Total Bilirubin 0.8 (0.2-1.3) mg/dL AST 229 H (17-59) U/L ALT 156 H (4-49) U/L Alkaline Phosphatase 77 (38-126) U/L Troponin I (0.000-0.034) ng/mL NT-Pro-B Natriuret Pep pg/mL Total Protein 4.8 L (6.3-8.2) g/dL Albumin 2.8 L (3.5-5.0) g/dL Stool Occult Blood (Negative) Blood Type Blood Type Recheck Bld Type Recheck Status Antibody Screen Crossmatch Spec Expiration Date 05/08/22 05/08/22 05/08/22 Range/Units 15:38 15:38 15:38 WBC (3.8-10.6) k/uL RBC (4.30-5.90) m/uL Hgb (13.0-17.5) gm/dL Hct (39.0-53.0) % MCV (80.0-100.0) fL MCH (25.0-35.0) pg MCHC (31.0-37.0) g/dL RDW (11.5-15.5) % Plt Count (150-450) k/uL MPV Neutrophils % % Lymphocytes % % Monocytes % % Eosinophils % % Basophils % % Neutrophils # (1.3-7.7) k/uL Lymphocytes # (1.0-4.8) k/uL Monocytes # (0-1.0) k/uL Eosinophils # (0-0.7) k/uL Basophils # (0-0.2) k/uL Manual Slide Review Polychromasia Hypochromasia Poikilocytosis Macrocytosis Target Cells Ovalocytes PT (9.0-12.0) sec INR (<1.2) APTT (22.0-30.0) sec Sodium (137-145) mmol/L Potassium (3.5-5.1) mmol/L Chloride (98-107) mmol/L Carbon Dioxide (22-30) mmol/L Anion Gap mmol/L BUN (9-20) mg/dL Creatinine (0.66-1.25) mg/dL Est GFR (CKD-EPI)AfAm (>60 ml/min/1.73 sqM) Est GFR (CKD-EPI)NonAf (>60 ml/min/1.73 sqM) Glucose (74-99) mg/dL Lactic Ac Sepsis Rflx Plasma Lactic Acid Jake 7.0 H* (0.7-2.0) mmol/L Calcium (8.4-10.2) mg/dL Magnesium (1.6-2.3) mg/dL Total Bilirubin (0.2-1.3) mg/dL AST (17-59) U/L ALT (4-49) U/L Alkaline Phosphatase (38-126) U/L Troponin I <0.012 (0.000-0.034) ng/mL NT-Pro-B Natriuret Pep 2170 pg/mL Total Protein (6.3-8.2) g/dL Albumin (3.5-5.0) g/dL Stool Occult Blood (Negative) Blood Type Blood Type Recheck Bld Type Recheck Status Antibody Screen Crossmatch Spec Expiration Date 05/08/22 05/08/22 05/08/22 Range/Units 16:10 16:14 16:30 WBC (3.8-10.6) k/uL RBC (4.30-5.90) m/uL Hgb (13.0-17.5) gm/dL Hct (39.0-53.0) % MCV (80.0-100.0) fL MCH (25.0-35.0) pg MCHC (31.0-37.0) g/dL RDW (11.5-15.5) % Plt Count (150-450) k/uL MPV Neutrophils % % Lymphocytes % % Monocytes % % Eosinophils % % Basophils % % Neutrophils # (1.3-7.7) k/uL Lymphocytes # (1.0-4.8) k/uL Monocytes # (0-1.0) k/uL Eosinophils # (0-0.7) k/uL Basophils # (0-0.2) k/uL Manual Slide Review Polychromasia Hypochromasia Poikilocytosis Macrocytosis Target Cells Ovalocytes PT (9.0-12.0) sec INR (<1.2) APTT (22.0-30.0) sec Sodium (137-145) mmol/L Potassium (3.5-5.1) mmol/L Chloride (98-107) mmol/L Carbon Dioxide (22-30) mmol/L Anion Gap mmol/L BUN (9-20) mg/dL Creatinine (0.66-1.25) mg/dL Est GFR (CKD-EPI)AfAm (>60 ml/min/1.73 sqM) Est GFR (CKD-EPI)NonAf (>60 ml/min/1.73 sqM) Glucose (74-99) mg/dL Lactic Ac Sepsis Rflx Y Plasma Lactic Acid Jake (0.7-2.0) mmol/L Calcium (8.4-10.2) mg/dL Magnesium (1.6-2.3) mg/dL Total Bilirubin (0.2-1.3) mg/dL AST (17-59) U/L ALT (4-49) U/L Alkaline Phosphatase (38-126) U/L Troponin I (0.000-0.034) ng/mL NT-Pro-B Natriuret Pep pg/mL Total Protein (6.3-8.2) g/dL Albumin (3.5-5.0) g/dL Stool Occult Blood Positive (Negative) Blood Type O Positive Blood Type Recheck O Pos Bld Type Recheck Status No Antibody Screen NEGATIVE Crossmatch See Detail Spec Expiration Date 05/11/2022 - 2309 Critical Care Time Critical Care Time: Yes (2 units RBC infusion) Total Critical Care Time: 35 Disposition Clinical Impression: Anemia, GI bleed, Lactic acidosis, Chronic kidney disease Disposition: OTHER INSTITUTION NOT DEFINED Referrals: Chris Olivera MD [Primary Care Provider] - 1-2 days Decision Date: 05/08/22 Decision Time: 18:08 - Out of Hospital Transfer - Req. Specs Out of Hospital Transfer - Requested Specifics: Other Emergency Center ([facility])
[2022-05-08 16:15] LABS: Albumin 2.8 g/dL (3.5-5.0); Calcium 7.9 mg/dL (8.4-10.2); Magnesium 2.2 mg/dL (1.6-2.3); Potassium 3.8 mmol/L (3.5-5.1); Total Bilirubin 0.8 mg/dL (0.2-1.3); Total Protein 4.8 g/dL (6.3-8.2)
[2022-05-08 16:22] LABS: Basophils % (A) 0 %; Eosinophils % (A) 0 %; Hypochromasia Marked; Lymphocytes # (A) 0.8 k/uL (1.0-4.8); Lymphocytes % (A) 7 %; MCH 29.7 pg (25.0-35.0); MCHC 27.6 g/dL (31.0-37.0); MCV 107.4 fL (80.0-100.0); Macrocytosis Marked; Mean Platelet Volume 8.9; Monocytes # (A) 0.8 k/uL (0-1.0); Monocytes % (A) 7 %; Neutrophils # (A) 9.5 k/uL (1.3-7.7); Neutrophils % (A) 84 %; Platelet Count 306 k/uL (150-450); Poikilocytosis Marked; RBC 1.51 m/uL (4.30-5.90); RDW 15.7 % (11.5-15.5); WBC 11.4 k/uL (3.8-10.6)
[2022-05-08 16:24] LABS: INR 1.6 (<1.2); Partial Thromboplastin Time 24.6 sec (22.0-30.0); Prothrombin Time 15.9 sec (9.0-12.0)
[2022-05-08 16:31] LABS: HCT 16.3 % (39.0-53.0); HGB 4.5 gm/dL (13.0-17.5)
--- NOTE | 2022-05-08 16:32 | XR ---
EXAMINATION TYPE: XR chest 2V DATE OF EXAM: 05/08/2022 COMPARISON: 03/10/2022 INDICATION: Difficulty breathing, dyspnea TECHNIQUE: Frontal and lateral views of the chest are obtained. FINDINGS: The heart size is markedly enlarged. The pulmonary vasculature is normal. No suspicious focal consolidations. Minimal effusions are not excluded. Sternotomy wires are present from prior CABG. There is hyperinflation flattened diaphragms compatible with COPD. IMPRESSION: 1. Marked cardiomegaly. 2. Very minimal pleural fluid collections are not excluded. 3. COPD.
[2022-05-08] MEDS ORDERED: SODIUM CHLORIDE 0.9% 500 ML 500 ML IV STA (16:39)
[2022-05-08] MEDS ORDERED: SODIUM CHLORIDE 0.9% 1,000 ML IV STA (16:39)
[2022-05-08 16:44] LABS: Ovalocytes Present; Polychromasia Present; Target Cells Present
[2022-05-08] MEDS ORDERED: SODIUM CHLORIDE 0.9% 500 ML 500 ML IV ONE ×2 (16:48→17:04)
--- NOTE | 2022-05-08 17:28 | CT ---
EXAMINATION TYPE: CT abdomen pelvis wo con CT DLP: 1953.4 mGycm, Automated exposure control for dose reduction was used. DATE OF EXAM: 05/08/2022 5:03 PM COMPARISON: CT chest 02/17/2016 CLINICAL INDICATION:Male, 77 years old with history of gib; abdominal pain, black stool TECHNIQUE: Axial CT of the abdomen and pelvis. Sagittal and coronal reformats were created on a flik[employer] workstation. Contrast used: None Oral contrast used: without Oral Contrast FINDINGS: LOWER CHEST: The heart is mildly enlarged for size. There is trace bilateral pleural effusions. Coron mj artery atherosclerosis. Sternotomy wires are partially visualized. Calcification along the right esophagus not significantly changed. ABDOMEN Portions of the abdomen are not [id number]. Due to patient body habitus. LIVER: Partial evaluation without gross evidence for abnormality. GALLBLADDER AND BILE DUCTS: Gallbladder is partially visualized. Suggestion of gallstones. PANCREAS: Unremarkable. SPLEEN: Unremarkable. ADRENAL GLANDS: Unremarkable. KIDNEYS AND URETERS: No evidence of hydronephrosis or renal calculus. Right renal cyst which are josé luis le higher density and could be partially due to patient being out of the CT bore with some artifact. PELVIS BLADDER: Unremarkable REPRODUCTIVE: Unremarkable. ABDOMEN & PELVIS STOMACH AND BOWEL: No evidence of bowel obstruction. Suggestion of fat stranding seen within the righ t abdomen however evaluation is limited and may be artifactual due to streak from the patient at the wall the CT gantry. PERITONEUM: No evidence of pneumoperitoneum or free fluid. VASCULATURE: No evidence of aortic aneurysm. Atherosclerosis of the arterial vasculature. Infrarenal aortic aneurysmal dilation up to 3.1 cm.. MUSCULOSKELETAL: No acute osseous abnormalities, multilevel disc degeneration changes are seen throug hout the spine. Multilevel disc degeneration changes of the spine with grade 1 anterolisthesis of L4 and L5. No spondylolysis. LYMPH NODES: No gross evidence for lymphadenopathy. SOFT TISSUE/ABDOMINAL WALL: Unremarkable IMPRESSION: 1. Body habitus limits evaluation of portions of the intra-abdominal contents. Limiting evaluation w ithout evidence for gastrointestinal hemorrhage on this noncontrast exam. Limited evaluation of the r ight colon. No obvious acute intra-abdominal process. 2. Partial visualization of the gallbladder suggests gallstones. 3. Infrarenal aortic aneurysm measuring up to 2.1 cm.
[2022-05-08] MEDS ORDERED: PANTOPRAZOLE 40 MG/10 ML VIAL IVP STA (18:22)
[2022-05-08] MEDS ORDERED: ONDANSETRON 4 MG/2 ML VIAL IVP STA (18:22)
[2022-05-08] MEDS ORDERED: SODIUM CHLORIDE 0.9% 1,000 ML IV SCH (22:00)
[2022-05-08 22:02] VITALS: BP 109/74; PULSE 130; RESP 22; TEMP 98.9
== END 2022-05-08 22:45 | disposition other institution (70) ==
LOC: EC 15:06
DX: D63.1 Anemia in chronic kidney disease (principal); E78.5 Hyperlipidemia, unspecified; I11.0 Hypertensive heart disease with heart failure; K21.9 Gastro-esophageal reflux disease without esophagitis; Z79.83 Long term (current) use of bisphosphonates; Z87.891 Personal history of nicotine dependence; Z82.49 Family history of ischemic heart disease and other diseases of the circulatory system; N18.9 Chronic kidney disease, unspecified; E87.2 Acidosis; K92.2 Gastrointestinal hemorrhage, unspecified
CPT/HCPCS: 36415; 93005; 86900; 86901; 83880; 80053; 83605; 83735; 84484; 85025; 85610; 85730; 86850; 86920; 82272; 71046; 74176; 99291; 96374; 96361; P9016; J2405; C9113